=== PATIENT | male | born 1970 | race Asian ===

== ENCOUNTER 2019-07-25 15:49 | Inpatient (IN) | payer OTHER ==
[2019-07-25] VITALS (11 sets, daily range): BP systolic 80–118; BP diastolic 40–92
[~2019-07-25] VITALS: Ht 152.4 cm; Wt 86.2 kg
--- NOTE | 2019-07-25 18:45 | NUR ---
patient admitted from [facility]- [place] [id number]- EMS at 1240- [facility] at 1246- started cooling at 1400. cooling reached at 1845. Family here unable to answer any of patient admission questions. they have no knowledge of pt health backround
[2019-07-25] MEDS ORDERED: POLYVINYL ALCOHOL 1.4% OPHTH SOLUTION 15ML BOTTLE. OU PRN (19:00)
[2019-07-25] MEDS ORDERED: AMIODARONE 900 MG in IV DEXTROSE 5% 500 ML IV PRN (19:00)
[2019-07-25] MEDS ORDERED: VECURONIUM BOLUS 10 MG VIAL. IV PRN (19:00)
[2019-07-25] MEDS ORDERED: MIDAZOLAM HCL/PF 2 MG/2 ML VIAL. IV ONE (19:30)
[2019-07-25] MEDS ORDERED: fentaNYL PF VIAL 100 MCG/2 ML VIAL IV ONE (19:30)
[2019-07-25] MEDS ORDERED: MAGNESIUM SULFATE 1GM 100 ML IV ONE (19:30)
[2019-07-25 19:41] LABS: BASO # 0.1 x10^3/uL (0.0-0.2); BASO % 0 % (0-3); EOS # 0.1 x10^3/uL (0.0-0.7); EOS % 0 % (0-3); HEMATOCRIT 47.7 % (39.0-53.0); HEMOGLOBIN 15.2 g/dL (13.0-17.5); LYMPH # 2.1 x10^3/uL (1.0-4.8); LYMPH % 10 % (24-48); MEAN CORPUSCULAR HEMOGLOBIN 27 pg (25-35); MEAN CORPUSCULAR HGB CONC 32 g/dL (31-37); MEAN CORPUSCULAR VOLUME 86 fL (79-100); MONO # 1.9 x10^3/uL (0.0-1.1); MONO % 9 % (0-9); NEUT # 17.7 x10^3/uL (1.8-7.7); NEUT % 81 % (31-73); PLATELET COUNT 193 x10^3/uL (140-400); RED BLOOD COUNT 5.56 x10^6/uL (4.30-5.70); RED CELL DISTRIBUTION WIDTH 14.5 % (11.5-14.5); WHITE BLOOD COUNT 21.8 x10^3/uL (4.0-11.0)
[2019-07-25 19:44] LABS: CALCIUM 7.1 mg/dL (8.5-10.1); CREATININE 2.3 mg/dL (0.7-1.3); GFR 30.6
[2019-07-25 19:47] LABS: MAGNESIUM 1.8 mg/dL (1.8-2.4); PHOSPHORUS 5.7 mg/dL (2.6-4.7)
[2019-07-25 19:49] LABS: PROTHROMBIN TIME PATIENT 16.1 SEC (11.7-14.0)
[2019-07-25] MEDS ORDERED: PROPOFOL 100 ML IV PRN (20:00)
[2019-07-25 20:03] LABS: BASE EXCESS ABG -11 mmol/L (-3-3); CORRECTED PCO2 ABG 38 mmHg; CORRECTED PH ABG 7.24; CORRECTED PO2 ABG 434 mmHg; HCO3 ABG 16 mmol/L (21-28); PCO2 ABG 41 mmHg (35-46); PO2 ABG 442 mmHg (75-108); SAT O2 ABG 99 % (92-99)
[2019-07-25 20:09] LABS: % BANDS 22 % (0-9); % EOS 1 % (0-5); % LYMPHS 9 % (24-48); % MONOS 11 % (0-10); % SEGS 57 % (35-66)
[2019-07-25 20:10] LABS: PLT ESTIMATE ADEQUATE (ADEQUATE)
[2019-07-25 20:11] LABS: FIO2 ABG 100
[2019-07-25] MEDS ORDERED: SODIUM BICARB ADULT 8.4% 50 MEQ/50 ML DISP.SYRIN. IV ONE (20:30)
[2019-07-25] MEDS: MIDAZOLAM 100mg/100ml NS BAG 100 ML IV PRN (20:50)
[2019-07-25] MEDS: PANTOPRAZOLE IV PUSH 40 MG VIAL. IVP SCH (21:16)
[2019-07-25] MEDS: ACETAMINOPHEN 650 MG/20.3 ML SOLUTION. NG SCH (21:16)
[2019-07-25] MEDS: busPIRone 10 MG TABLET. NG SCH (21:17)
[2019-07-25] MEDS: HEPARIN for SUB-Q USE 5,000 UNIT/ML VIAL. SQ SCH (21:18)
--- NOTE | 2019-07-25 21:21 | PDOC1 ---
History and Physical Date of Admission Date of Admission DATE: 07/25/19 TIME: 21:14 Source Source: Chart review, Patient History of Present Illness History of Present Illness Transferred her from [facility], Mr. 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 They had a AICD def device at the plant, and no shockable rhythm was determined by the device. EMS found him in PEA arrest, Non-con head CT was negative acute. EKG was OK, no trop elevation, pt seen by Dr. King in CV consult there is a note from [facility]. CT scan was negative for PE The ER doctor talked to the neurologist at Dr. Juárez, CT angiogram of the lung is ruled out PE blood gas was a respiratory acidosis, bicarb has been given arruved here intubated Past Medical History Cardiovascular: No pertinent hx Pulmonary: No pertinent hx GI: No pertinent hx Heme/Onc: No pertinent hx Social History ALCOHOL: rare Drugs: None Current Medications Current Medications Current Medications Norepinephrine Bitartrate 250 ml @ 15 mls/hr CONT PRN IV SEE I/O RECORD; Start 07/25/19 at 19:00 Amiodarone HCl 900 mg/Dextrose 518 ml @ 33 mls/hr CONT PRN IV SEE I/O RECORD; Start 07/25/19 at 19:00 Fentanyl Citrate (Fentanyl 2ml Vial) 100 mcg 1X ONCE IV Last administered on 07/25/19at 19:44; Start 07/25/19 at 19:30; Stop 07/25/19 at 19:31; Status DC Midazolam HCl (Versed) 2 mg 1X ONCE IV Last administered on 07/25/19at 19:43; Start 07/25/19 at 19:30; Stop 07/25/19 at 19:31; Status DC Magnesium Sulfate/ Dextrose 100 ml @ 100 mls/hr 1X ONCE IV Last administered on 07/25/19at 19:44; Start 07/25/19 at 19:30; Stop 07/25/19 at 20:29; Status DC Buspirone HCl (Buspar) 30 mg Q8H NG ; Start 07/25/19 at 20:00; Stop 07/27/19 at 12:01 Acetaminophen (Tylenol) 650 mg Q4H NG ; Start 07/25/19 at 20:00 Artificial Tears (Artificial Tears) 1 drop Q6HRS OU ; Start 07/26/19 at 00:00 Artificial Tears (Artificial Tears) 1 drop PRN Q15MIN PRN OU DRY EYE; Start 07/25/19 at 19:00 Heparin Sodium (Porcine) (Heparin Sodium) 5,000 unit BID SQ ; Start 07/25/19 at 21:00 Pantoprazole Sodium (PROTONIX VIAL for IV PUSH) 40 mg DAILY IVP ; Start 07/25/19 at 20:00 Fentanyl Citrate 30 ml @ 0 mls/hr CONT PRN IV PER PROTOCOL. Last administered on 07/25/19at 20:28; Start 07/25/19 at 19:00 Propofol 100 ml @ 0 mls/hr CONT PRN IV PER PROTOCOL.; Start 07/25/19 at 20:00 Midazolam HCl 100 ml @ 0 mls/hr CONT PRN IV PER PROTOCOL. Last administered on 07/25/19at 20:50; Start 07/25/19 at 20:00 Vecuronium [place] (Norcuron Bolus) 8 mg PRN Q1HR PRN IV SHIVERING; Start 07/25/19 at 19:00 Sodium Bicarbonate (Sodium Bicarb Adult 8.4% Syr) 50 meq 1X ONCE IV Last administered on 07/25/19at 20:30; Start 07/25/19 at 20:30; Stop 07/25/19 at 20:31; Status DC Allergies Allergies: Coded Allergies: Unable to Assess (Unverified , 07/25/19) ROS Review of System unable, his has been out of town Physical Exam General: mild distress, Other (sedated ) HEENT: Atraumatic, PERRLA, EOMI, Mucous membr. moist/pink Lungs: Clear to auscultation, Normal air movement Heart: S1S2, no murmurs, irregularly irregular Abdomen: Soft Extremities: No clubbing, No cyanosis, No edema, Normal pulses Skin: No rashes, No breakdown Neuro: Other (sedated, but has pupil reflex, withdraws, has gag reflex, ) Vitals Vitals Vital Signs Date Time Temp Pulse Resp B/P (MAP) Pulse Ox O2 Delivery O2 Flow Rate FiO2 07/25/19 20:45 Ventilator 07/25/19 20:28 22 07/25/19 19:44 100 Labs Labs Laboratory Tests Test 07/25/19 18:25 07/25/19 19:55 White Blood Count 21.8 x10^3/uL (4.0-11.0) Red Blood Count 5.56 x10^6/uL (4.30-5.70) Hemoglobin 15.2 g/dL (13.0-17.5) Hematocrit 47.7 % (39.0-53.0) Mean Corpuscular Volume 86 fL (79-100) Mean Corpuscular Hemoglobin 27 pg (25-35) Mean Corpuscular Hemoglobin Concent 32 g/dL (31-37) Red Cell Distribution Width 14.5 % (11.5-14.5) Platelet Count 193 x10^3/uL (140-400) Neutrophils (%) (Auto) 81 % (31-73) Lymphocytes (%) (Auto) 10 % (24-48) Monocytes (%) (Auto) 9 % (0-9) Eosinophils (%) (Auto) 0 % (0-3) Basophils (%) (Auto) 0 % (0-3) Neutrophils # (Auto) 17.7 x10^3/uL (1.8-7.7) Lymphocytes # (Auto) 2.1 x10^3/uL (1.0-4.8) Monocytes # (Auto) 1.9 x10^3/uL (0.0-1.1) Eosinophils # (Auto) 0.1 x10^3/uL (0.0-0.7) Basophils # (Auto) 0.1 x10^3/uL (0.0-0.2) Segmented Neutrophils % 57 % (35-66) Band Neutrophils % 22 % (0-9) Lymphocytes % 9 % (24-48) Monocytes % 11 % (0-10) Eosinophils % 1 % (0-5) Platelet Estimate Adequate (ADEQUATE) Prothrombin Time 16.1 SEC (11.7-14.0) Prothromb Time International Ratio 1.3 (0.8-1.1) Sodium Level 148 mmol/L (136-145) Potassium Level 4.0 mmol/L (3.5-5.1) Chloride Level 110 mmol/L (98-107) Carbon Dioxide Level 24 mmol/L (21-32) Anion Gap 14 (6-14) Blood Urea Nitrogen 28 mg/dL (8-26) Creatinine 2.3 mg/dL (0.7-1.3) Estimated GFR (Cockcroft-Gault) 30.6 Glucose Level 157 mg/dL (70-99) Calcium Level 7.1 mg/dL (8.5-10.1) Ionized Calcium 0.92 mmol/L (1.13-1.32) Phosphorus Level 5.7 mg/dL (2.6-4.7) Magnesium Level 1.8 mg/dL (1.8-2.4) O2 Saturation 99 % (92-99) Arterial Blood pH 7.22 (7.35-7.45) Arterial Blood pH (Temp corrected) 7.24 Arterial Blood pCO2 at Patient Temp 41 mmHg (35-46) Arterial Blood pCO2 (Temp correct) 38 mmHg Arterial Blood pO2 at Patient Temp 442 mmHg (75-108) Arterial Blood pO2 (Temp corrected) 434 mmHg Arterial Blood HCO3 16 mmol/L (21-28) Arterial Blood Base Excess -11 mmol/L (-3-3) FiO2 100 Laboratory Tests Test 07/25/19 18:25 07/25/19 19:55 White Blood Count 21.8 x10^3/uL (4.0-11.0) Red Blood Count 5.56 x10^6/uL (4.30-5.70) Hemoglobin 15.2 g/dL (13.0-17.5) Hematocrit 47.7 % (39.0-53.0) Mean Corpuscular Volume 86 fL (79-100) Mean Corpuscular Hemoglobin 27 pg (25-35) Mean Corpuscular Hemoglobin Concent 32 g/dL (31-37) Red Cell Distribution Width 14.5 % (11.5-14.5) Platelet Count 193 x10^3/uL (140-400) Neutrophils (%) (Auto) 81 % (31-73) Lymphocytes (%) (Auto) 10 % (24-48) Monocytes (%) (Auto) 9 % (0-9) Eosinophils (%) (Auto) 0 % (0-3) Basophils (%) (Auto) 0 % (0-3) Neutrophils # (Auto) 17.7 x10^3/uL (1.8-7.7) Lymphocytes # (Auto) 2.1 x10^3/uL (1.0-4.8) Monocytes # (Auto) 1.9 x10^3/uL (0.0-1.1) Eosinophils # (Auto) 0.1 x10^3/uL (0.0-0.7) Basophils # (Auto) 0.1 x10^3/uL (0.0-0.2) Segmented Neutrophils % 57 % (35-66) Band Neutrophils % 22 % (0-9) Lymphocytes % 9 % (24-48) Monocytes % 11 % (0-10) Eosinophils % 1 % (0-5) Platelet Estimate Adequate (ADEQUATE) Prothrombin Time 16.1 SEC (11.7-14.0) Prothromb Time International Ratio 1.3 (0.8-1.1) Sodium Level 148 mmol/L (136-145) Potassium Level 4.0 mmol/L (3.5-5.1) Chloride Level 110 mmol/L (98-107) Carbon Dioxide Level 24 mmol/L (21-32) Anion Gap 14 (6-14) Blood Urea Nitrogen 28 mg/dL (8-26) Creatinine 2.3 mg/dL (0.7-1.3) Estimated GFR (Cockcroft-Gault) 30.6 Glucose Level 157 mg/dL (70-99) Calcium Level 7.1 mg/dL (8.5-10.1) Ionized Calcium 0.92 mmol/L (1.13-1.32) Phosphorus Level 5.7 mg/dL (2.6-4.7) Magnesium Level 1.8 mg/dL (1.8-2.4) O2 Saturation 99 % (92-99) Arterial Blood pH 7.22 (7.35-7.45) Arterial Blood pH (Temp corrected) 7.24 Arterial Blood pCO2 at Patient Temp 41 mmHg (35-46) Arterial Blood pCO2 (Temp correct) 38 mmHg Arterial Blood pO2 at Patient Temp 442 mmHg (75-108) Arterial Blood pO2 (Temp corrected) 434 mmHg Arterial Blood HCO3 16 mmol/L (21-28) Arterial Blood Base Excess -11 mmol/L (-3-3) FiO2 100 VTE Prophylaxis Ordered VTE Prophylaxis Devices: Yes VTE Pharmacological Prophylaxi: No Assessment/Plan Assessment/Plan cardiac arrest in field PEA arrest cardiac arrhythmia s/p CPR and shocks on amio, is getting cooling protocol CT head OK, s/p code neuro deficit, poor reflexes in ER, seem improved admit to ICU, discussed with 9 family members, [place], only one spoke fluent romanian time > 40 min MARYA MATTHEWS MD Jul 25, 2019 21:21
[2019-07-26] VITALS (29 sets, daily range): BP systolic 80–138; BP diastolic 50–85
[2019-07-26] MEDS: POLYVINYL ALCOHOL 1.4% OPHTH SOLUTION 15ML BOTTLE. OU SCH ×5 (00:23→23:04)
[2019-07-26] MEDS: ACETAMINOPHEN 650 MG/20.3 ML SOLUTION. NG SCH ×5 (00:23→17:54)
[2019-07-26] MEDS ORDERED: IV NORMAL SALINE 1000ML BAG 1,000 ML IV ONE ×2 (01:30)
[2019-07-26] MEDS: NOREPINEPHRIN 8MG/250ML PREMIX 250 ML IV PRN ×3 (01:42→10:22)
[2019-07-26] MEDS ORDERED: HYDROCORTISONE SOD SUCC/PF 100 MG/2 ML VIAL. IV ONE (01:45)
[2019-07-26 03:05] LABS: CALCIUM 6.7 mg/dL (8.5-10.1)
[2019-07-26 04:04] LABS: BASO % 0 % (0-3); EOS % 0 % (0-3); HEMATOCRIT 51.2 % (39.0-53.0); HEMOGLOBIN 16.4 g/dL (13.0-17.5); LYMPH # 2.1 x10^3/uL (1.0-4.8); LYMPH % 9 % (24-48); MEAN CORPUSCULAR HEMOGLOBIN 27 pg (25-35); MEAN CORPUSCULAR HGB CONC 32 g/dL (31-37); MEAN CORPUSCULAR VOLUME 86 fL (79-100); MONO # 1.9 x10^3/uL (0.0-1.1); MONO % 8 % (0-9); NEUT # 19.3 x10^3/uL (1.8-7.7); NEUT % 82 % (31-73); PLATELET COUNT 197 x10^3/uL (140-400); RED BLOOD COUNT 5.97 x10^6/uL (4.30-5.70); RED CELL DISTRIBUTION WIDTH 14.4 % (11.5-14.5); WHITE BLOOD COUNT 23.5 x10^3/uL (4.0-11.0)
[2019-07-26 04:09] LABS: CALCIUM 6.5 mg/dL (8.5-10.1); CREATININE 2.5 mg/dL (0.7-1.3); GFR 27.8
[2019-07-26 04:10] LABS: MAGNESIUM 2.2 mg/dL (1.8-2.4); POTASSIUM 3.9 mmol/L (3.5-5.1)
[2019-07-26] MEDS: busPIRone 10 MG TABLET. NG SCH ×2 (04:43→12:27)
[2019-07-26] MEDS: cefTRIAXone IV Push 1 GM VIAL. IVP SCH (06:12)
--- NOTE | 2019-07-26 06:22 | NUR ---
noted bp 80/60. Dr Lopez called orders recieved and entered.
--- NOTE | 2019-07-26 07:25 | PDOC ---
Provider Note Provider Note [id number] acute resp fail s/p cp arrest danyelle shock see orders MICK VELÁZQUEZ MD Jul 26, 2019 07:25
[2019-07-26] MEDS ORDERED: AMIODARONE 900 MG in IV DEXTROSE 5% 500 ML IV PRN (08:00)
[2019-07-26 08:05] LABS: BASO # 0.1 x10^3/uL (0.0-0.2); BASO % 0 % (0-3); EOS % 0 % (0-3); HEMATOCRIT 51.1 % (39.0-53.0); HEMOGLOBIN 16.1 g/dL (13.0-17.5); LYMPH # 1.4 x10^3/uL (1.0-4.8); LYMPH % 6 % (24-48); MEAN CORPUSCULAR HEMOGLOBIN 27 pg (25-35); MEAN CORPUSCULAR HGB CONC 31 g/dL (31-37); MEAN CORPUSCULAR VOLUME 87 fL (79-100); MONO # 1.6 x10^3/uL (0.0-1.1); MONO % 6 % (0-9); NEUT # 22.4 x10^3/uL (1.8-7.7); NEUT % 88 % (31-73); PLATELET COUNT 208 x10^3/uL (140-400); RED BLOOD COUNT 5.87 x10^6/uL (4.30-5.70); RED CELL DISTRIBUTION WIDTH 14.7 % (11.5-14.5); WHITE BLOOD COUNT 25.5 x10^3/uL (4.0-11.0)
[2019-07-26 08:08] LABS: PROTHROMBIN TIME PATIENT 17.1 SEC (11.7-14.0)
[2019-07-26 08:22] LABS: BILIRUBIN,URINE SMALL (NEG); CLARITY,URINE CLOUDY; COLOR,URINE YELLOW; NITRITE,URINE NEGATIVE (NEG); PROTEIN,URINE 100 mg/dL (NEG-TRACE)
--- NOTE | 2019-07-26 08:22 | CONS ---
DATE OF CONSULTATION: 07/26/2019 HISTORY OF PRESENT ILLNESS: I was asked to see this 48-year-old gentleman for acute respiratory failure, status post cardiopulmonary arrest. The patient is currently on the ventilator. He is on hypothermia protocol. He is not responsive. He is not able to give any information. All of the information was obtained from chart and nursing staff. 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 After 33 minutes, he gained circulation. He was in PEA rhythm. Cardiology has seen the patient and started the patient on amiodarone. He is currently on amiodarone. He is on the ventilator. His temperature is 33. He has small amount of ET tube secretion. He is on dobutamine and Levophed, Versed and fentanyl. PAST MEDICAL HISTORY: None per chart. SOCIAL HISTORY: Rare alcohol. MEDICATIONS: Currently, he is on amiodarone, dobutamine, Levophed, doxycycline, Rocephin, heparin subcutaneously, Versed, fentanyl. FAMILY HISTORY: Unable to obtain. The patient is on the ventilator and is not able to give any information. REVIEW OF SYSTEMS: As mentioned as above. I have discussed the patient with RN. Other systems are otherwise negative. PHYSICAL EXAMINATION: GENERAL: This is a well-developed gentleman. VITAL SIGNS: His O2 saturation is 100%, respiratory rate 14, heart rate 59, blood pressure 93/67, temperature 33. HEENT: Pupils are 1-2 mm, sluggish to light. He is orally intubated. Nose is clear. NECK: There is no lymphadenopathy or thyromegaly. CARDIOVASCULAR: Regular rate and rhythm. PMI is nondisplaced. CHEST: Inspection is normal. LUNGS: There are bibasilar crackles, dullness at the bases. ABDOMEN: Soft. Bowel sounds are good. There is no mass. EXTREMITIES: There is no edema. LYMPHATICS: There is no lymphadenopathy. SKIN: No rash. NEUROLOGIC: He is on the ventilator, sedated. LABORATORY DATA: I reviewed the following lab data. WBC 23.5, hemoglobin 16.4, platelets 197. ABG at 19:55 yesterday, pH 7.22, pCO2 of 41, pO2 of 443 on 100% FiO2. Sodium 144, potassium 3.9, chloride 110, CO2 of 17, glucose 250, BUN 30, creatinine 2.5. INR 1.3. Lactic acid 8.9. His CT angiogram of the chest reportedly showed bibasilar infiltrate, no central pulmonary embolism. CT of the head was negative for bleed. IMPRESSION: 1. Acute respiratory failure secondary to cardiopulmonary arrest, cannot rule out sepsis versus others. 2. Status post cardiopulmonary arrest, questionable etiology. 3. Abnormal CT of the chest. 4. Acute kidney injury. 5. Hypotension, septic shock versus cardiogenic shock versus others. 6. Lactic acidosis. PLAN AND RECOMMENDATIONS: 1. Titrate FiO2 to keep O2 saturation 94%. 2. Continue ventilator support. I will do an ABG. Change vent setting per ABG. 3. Stat portable chest x-ray will be reviewed. 4. Herrera cultures done. We will follow culture results. 5. Continue antibiotic. 6. Heparin for DVT prophylaxis. 7. Continue hypothermia protocol. 8. Protonix for stress ulcer prophylaxis. 9. Follow Cardiology recommendations. He would require an echocardiogram. 10. Nasal swab for influenza A and B. 11. Legionella and Strep pneumoniae antigen. 12. The findings and recommendations were discussed with RN. 13. Monitor kidney function tests. May require Nephrology consultation. Thank you very much for allowing me to participate in the care of this very nice gentleman. The patient is critically ill. Critical care time 32 minutes without overlap. MICK VELÁZQUEZ M.D. : [place] JOB#: [id number] / [id number]
[2019-07-26 08:31] LABS: CALCIUM 6.6 mg/dL (8.5-10.1); CREATININE 2.8 mg/dL (0.7-1.3); GFR 24.4; PHOSPHORUS 7.6 mg/dL (2.6-4.7); POTASSIUM 3.8 mmol/L (3.5-5.1)
[2019-07-26 08:31] LABS: BASE EXCESS ABG -20 mmol/L (-3-3); HCO3 ABG 12 mmol/L (21-28); PCO2 ABG 49 mmHg (35-46); PO2 ABG 102 mmHg (75-108); SAT O2 ABG 96 % (92-99)
[2019-07-26 08:36] LABS: CORRECTED PCO2 ABG 41 mmHg; CORRECTED PH ABG 7.05; CORRECTED PO2 ABG 80 mmHg
--- NOTE | 2019-07-26 08:37 | PDOC2 ---
CARDIOLOGY CONSULT NOTE CHEIF COMPLAINT: Cardiac arrest HPI: 48 y.o male with witnessed out of hospital cardiac arrest when at work. No family at bedside and no next of kin available that can speak Colombian. Patient per chart review and discussion with other providers is a refugee living in [place]. He apparently has no prior cardiac history. He fell down while at work and initial rhythm was PEA. Evaluation at [facility] did not reveal a P.E and no evidence of RODERICK on EKG. He was brought to [facility] ICU and since then has been on hypothermic protocol. PMHX: Unknown SOCHX: Unknown FAMHX: Unknown CURRENT MEDS: Current Medications Medications (Trade) Dose Ordered Sig/Rosi Route PRN Reason Start Time Stop Time Status Last Admin Dose Admin Norepinephrine Bitartrate 250 ml @ 15 mls/hr CONT PRN IV SEE I/O RECORD 07/25/19 19:00 07/26/19 06:01 Amiodarone HCl 900 mg/Dextrose 518 ml @ 33 mls/hr CONT PRN IV SEE I/O RECORD 07/25/19 19:00 07/26/19 00:25 DC 07/26/19 00:21 Fentanyl Citrate (Fentanyl 2ml Vial) 100 mcg 1X ONCE IV 07/25/19 19:30 07/25/19 19:31 DC 07/25/19 19:44 Midazolam HCl (Versed) 2 mg 1X ONCE IV 07/25/19 19:30 07/25/19 19:31 DC 07/25/19 19:43 Magnesium Sulfate/ Dextrose 100 ml @ 100 mls/hr 1X ONCE IV 07/25/19 19:30 07/25/19 20:29 DC 07/25/19 19:44 Buspirone HCl (Buspar) 30 mg Q8H NG 07/25/19 20:00 07/27/19 12:01 07/26/19 04:43 Acetaminophen (Tylenol) 650 mg Q4H NG 07/25/19 20:00 07/26/19 04:43 Artificial Tears (Artificial Tears) 1 drop Q6HRS OU 07/26/19 00:00 07/26/19 06:11 Heparin Sodium (Porcine) (Heparin Sodium) 5,000 unit BID SQ 07/25/19 21:00 07/25/19 21:18 Pantoprazole Sodium (PROTONIX VIAL for IV PUSH) 40 mg DAILY IVP 07/25/19 20:00 07/25/19 21:16 Fentanyl Citrate 30 ml @ 0 mls/hr CONT PRN IV PER PROTOCOL. 07/25/19 19:00 07/26/19 07:34 Midazolam HCl 100 ml @ 0 mls/hr CONT PRN IV PER PROTOCOL. 07/25/19 20:00 07/25/19 20:50 Sodium Bicarbonate (Sodium Bicarb Adult 8.4% Syr) 50 meq 1X ONCE IV 07/25/19 20:30 07/25/19 20:31 DC 07/25/19 20:30 Sodium Chloride 1,000 ml @ 125 mls/hr 1X ONCE IV 07/26/19 01:30 07/26/19 09:29 07/26/19 01:42 Sodium Chloride 1,000 ml @ 1,000 mls/hr 1X ONCE IV 07/26/19 01:30 07/26/19 02:29 DC 07/26/19 01:30 Hydrocortisone Sodium Succinate (Solu-CORTEF) 100 mg 1X ONCE IV 07/26/19 01:45 07/26/19 01:46 DC 07/26/19 01:44 Ceftriaxone Sodium (Rocephin) 1 gm Q24H IVP 07/26/19 06:00 07/26/19 06:12 ALLERGIES: Allergies Coded Allergies Type Severity Reaction Last Updated Verified Unable to Assess 07/25/19 No ROS: Not able to be obtained PHYSICAL EXAM: Vital Signs/I&O: Vital Signs Date Time Temp Pulse Resp B/P (MAP) Pulse Ox O2 Delivery O2 Flow Rate FiO2 07/26/19 08:22 100 Ventilator 07/26/19 07:34 14 07/26/19 06:20 92.5 59 80/56 I & O 07/25/19 07/25/19 07/26/19 15:00 23:00 07:00 Intake Total 0 ml 166 ml Output Total 170 ml 255 ml Balance -170 ml -89 ml Physical Exam: he is sedated and non-responsive Distant heart tones. Regular Soft abdomen Lungs with bilateral rhonchi No edema. Diminished peripheral pulses. DIAGNOSTIC TESTING: WBC > 25K Renal failure noted Lactate elevated CXR consistent with ARDS ASSESSMENT: 1. Cardiac arrest - PEA - etiology unclear 2. FABIAN 3. Probable ARDS/septic shock? PLAN: 1. Continue supportive care with pressors/fluids. 2. Check echo tomorrow after rewarming. 3. Depending on neurologic recovery, could then consider further ischemic evaluation including cath. Poor prognosis. Will follow along. OMAIRA ALFONSO MD Jul 26, 2019 08:37
[2019-07-26 08:42] LABS: INFLUENZA A PATIENT NEGATIVE (NEGATIVE); INFLUENZA B PATIENT NEGATIVE (NEGATIVE)
[2019-07-26 08:45] LABS: SQUAMOUS EPITHELIAL CELL,UR OCC /LPF
[2019-07-26 08:46] LABS: AMORPHOUS SEDIMENT,UR PRESENT /HPF; GRANULAR CASTS,URINE FEW /HPF; WAXY CASTS,URINE OCCASIONAL /HPF
[2019-07-26 08:48] LABS: BACTERIA,URINE FEW /HPF (0-FEW)
[2019-07-26] MEDS: DOXYCYCLINE HYCLATE 100 MG in IV DEXTROSE 5% 100ML 100 ML IV SCH ×2 (08:51→20:52)
[2019-07-26] MEDS: PANTOPRAZOLE IV PUSH 40 MG VIAL. IVP SCH (08:51)
[2019-07-26] MEDS: HEPARIN for SUB-Q USE 5,000 UNIT/ML VIAL. SQ SCH ×2 (08:52→20:52)
[2019-07-26] MEDS: INSULIN REGULAR VIAL 150 UNIT in 0.9 % SODIUM CHLORIDE 150ML 150 ML IV PRN ×2 (09:19→23:03)
--- NOTE | 2019-07-26 09:31 | RAD ---
Exam performed: One view chest HISTORY: Cardiac arrest. DATE OF SERVICE: 2018. COMPARISON: Single view chest from 07/25/2019. Single AP upright portable view chest findings: Study somewhat limited due to positioning. Cardiomegaly with mild Central vascular congestion perhaps related to semiupright position. Endotracheal tube and feeding tube are stable. There is opacification of the left lung base with elevation of the left costophrenic angle. No pneumothorax. IMPRESSION: Cardiomegaly with mild Central vascular congestion perhaps related to semiupright position. Stable support lines and tubes. Electronically signed by: Jessi Watkins MD (07/26/2019 9:29 AM) [facility]
[2019-07-26] MEDS ORDERED: MAGNESIUM SULFATE 2GM 50 ML IV ONE (09:45)
--- NOTE | 2019-07-26 12:17 | PDOC ---
PROGRESS NOTES Chief Complaint Chief Complaint cardiac arrest in field PEA arrest cardiac arrhythmia HX Of htn and unknown cardiac condition per family tobacco use disorder, obese, BMI 37 leukocytosis, lactic acidosis, abx given, cx pending, unknown source, s/p CPR and shocks on amio, is getting cooling protocol History of Present Illness History of Present Illness discussed with family last ight and today brain reflexes are not working , pupils are very small, dolls eye pathology, neuro following Vitals Vitals Vital Signs Date Time Temp Pulse Resp B/P (MAP) Pulse Ox O2 Delivery O2 Flow Rate FiO2 07/26/19 11:00 91.9 59 19 115/69 100 Ventilator Physical Exam Physical Exam on vent, not responsive to painful General: mild distress, Other (sedated ) Abdomen: Soft Extremities: No clubbing, No cyanosis, No edema, Normal pulses Skin: No rashes, No breakdown Labs LABS Laboratory Tests Test 07/25/19 18:25 07/25/19 19:55 07/25/19 20:01 07/26/19 02:05 White Blood Count 21.8 x10^3/uL (4.0-11.0) Red Blood Count 5.56 x10^6/uL (4.30-5.70) Hemoglobin 15.2 g/dL (13.0-17.5) Hematocrit 47.7 % (39.0-53.0) Mean Corpuscular Volume 86 fL (79-100) Mean Corpuscular Hemoglobin 27 pg (25-35) Mean Corpuscular Hemoglobin Concent 32 g/dL (31-37) Red Cell Distribution Width 14.5 % (11.5-14.5) Platelet Count 193 x10^3/uL (140-400) Neutrophils (%) (Auto) 81 % (31-73) Lymphocytes (%) (Auto) 10 % (24-48) Monocytes (%) (Auto) 9 % (0-9) Eosinophils (%) (Auto) 0 % (0-3) Basophils (%) (Auto) 0 % (0-3) Neutrophils # (Auto) 17.7 x10^3/uL (1.8-7.7) Lymphocytes # (Auto) 2.1 x10^3/uL (1.0-4.8) Monocytes # (Auto) 1.9 x10^3/uL (0.0-1.1) Eosinophils # (Auto) 0.1 x10^3/uL (0.0-0.7) Basophils # (Auto) 0.1 x10^3/uL (0.0-0.2) Segmented Neutrophils % 57 % (35-66) Band Neutrophils % 22 % (0-9) Lymphocytes % 9 % (24-48) Monocytes % 11 % (0-10) Eosinophils % 1 % (0-5) Platelet Estimate Adequate (ADEQUATE) Prothrombin Time 16.1 SEC (11.7-14.0) Prothromb Time International Ratio 1.3 (0.8-1.1) Sodium Level 148 mmol/L (136-145) Potassium Level 4.0 mmol/L (3.5-5.1) Chloride Level 110 mmol/L (98-107) Carbon Dioxide Level 24 mmol/L (21-32) Anion Gap 14 (6-14) Blood Urea Nitrogen 28 mg/dL (8-26) Creatinine 2.3 mg/dL (0.7-1.3) Estimated GFR (Cockcroft-Gault) 30.6 Glucose Level 157 mg/dL (70-99) Calcium Level 7.1 mg/dL (8.5-10.1) Ionized Calcium 0.92 mmol/L (1.13-1.32) Phosphorus Level 5.7 mg/dL (2.6-4.7) Magnesium Level 1.8 mg/dL (1.8-2.4) O2 Saturation 99 % (92-99) Arterial Blood pH 7.22 (7.35-7.45) Arterial Blood pH (Temp corrected) 7.24 Arterial Blood pCO2 at Patient Temp 41 mmHg (35-46) Arterial Blood pCO2 (Temp correct) 38 mmHg Arterial Blood pO2 at Patient Temp 442 mmHg (75-108) Arterial Blood pO2 (Temp corrected) 434 mmHg Arterial Blood HCO3 16 mmol/L (21-28) Arterial Blood Base Excess -11 mmol/L (-3-3) FiO2 100 Glucose (Fingerstick) 144 mg/dL (70-99) 185 mg/dL (70-99) Test 07/26/19 02:15 07/26/19 06:00 07/26/19 07:50 07/26/19 08:00 White Blood Count 23.5 x10^3/uL (4.0-11.0) 25.5 x10^3/uL (4.0-11.0) Red Blood Count 5.97 x10^6/uL (4.30-5.70) 5.87 x10^6/uL (4.30-5.70) Hemoglobin 16.4 g/dL (13.0-17.5) 16.1 g/dL (13.0-17.5) Hematocrit 51.2 % (39.0-53.0) 51.1 % (39.0-53.0) Mean Corpuscular Volume 86 fL (79-100) 87 fL (79-100) Mean Corpuscular Hemoglobin 27 pg (25-35) 27 pg (25-35) Mean Corpuscular Hemoglobin Concent 32 g/dL (31-37) 31 g/dL (31-37) Red Cell Distribution Width 14.4 % (11.5-14.5) 14.7 % (11.5-14.5) Platelet Count 197 x10^3/uL (140-400) 208 x10^3/uL (140-400) Neutrophils (%) (Auto) 82 % (31-73) 88 % (31-73) Lymphocytes (%) (Auto) 9 % (24-48) 6 % (24-48) Monocytes (%) (Auto) 8 % (0-9) 6 % (0-9) Eosinophils (%) (Auto) 0 % (0-3) 0 % (0-3) Basophils (%) (Auto) 0 % (0-3) 0 % (0-3) Neutrophils # (Auto) 19.3 x10^3/uL (1.8-7.7) 22.4 x10^3/uL (1.8-7.7) Lymphocytes # (Auto) 2.1 x10^3/uL (1.0-4.8) 1.4 x10^3/uL (1.0-4.8) Monocytes # (Auto) 1.9 x10^3/uL (0.0-1.1) 1.6 x10^3/uL (0.0-1.1) Eosinophils # (Auto) 0.0 x10^3/uL (0.0-0.7) 0.0 x10^3/uL (0.0-0.7) Basophils # (Auto) 0.0 x10^3/uL (0.0-0.2) 0.1 x10^3/uL (0.0-0.2) Prothrombin Time 17.1 SEC (11.7-14.0) Prothromb Time International Ratio 1.4 (0.8-1.1) Sodium Level 144 mmol/L (136-145) 147 mmol/L (136-145) Potassium Level 3.9 mmol/L (3.5-5.1) 3.8 mmol/L (3.5-5.1) Chloride Level 110 mmol/L (98-107) 111 mmol/L (98-107) Carbon Dioxide Level 17 mmol/L (21-32) 14 mmol/L (21-32) Anion Gap 17 (6-14) 22 (6-14) Blood Urea Nitrogen 30 mg/dL (8-26) 31 mg/dL (8-26) Creatinine 2.5 mg/dL (0.7-1.3) 2.8 mg/dL (0.7-1.3) Estimated GFR (Cockcroft-Gault) 27.8 24.4 Glucose Level 250 mg/dL (70-99) 265 mg/dL (70-99) Calcium Level 6.5 mg/dL (8.5-10.1) 6.6 mg/dL (8.5-10.1) Magnesium Level 2.2 mg/dL (1.8-2.4) 2.0 mg/dL (1.8-2.4) Alkaline Phosphatase 87 U/L (46-116) Lactic Acid Level 8.9 mmol/L (0.4-2.0) Phosphorus Level 7.6 mg/dL (2.6-4.7) Urine Collection Type Unknown Urine Color Yellow Urine Clarity Cloudy Urine pH 5.0 Urine Specific [place] >=1.030 Urine Protein 100 mg/dL (NEG-TRACE) Urine Glucose (UA) Negative mg/dL (NEG) Urine Ketones (Stick) Negative mg/dL (NEG) Urine Blood Large (NEG) Urine Nitrite Negative (NEG) Urine Bilirubin Small (NEG) Urine Urobilinogen Dipstick 1.0 mg/dL (0.2 mg/dL) Urine Leukocyte Esterase Negative (NEG) Urine RBC 3-5 /HPF (0-2) Urine WBC 5-10 /HPF (0-4) Urine Squamous Epithelial Cells Occ /LPF Urine Renal Epithelial Cells Few /LPF Urine Amorphous Sediment Present /HPF Urine Bacteria Few /HPF (0-FEW) Urine Granular Casts Few /HPF Urine Waxy Casts Occasional /HPF Urine Mucus Slight /LPF Influenza Type A Antigen Negative (NEGATIVE) Influenza Type B Antigen Negative (NEGATIVE) Test 07/26/19 08:30 07/26/19 10:00 07/26/19 10:05 07/26/19 11:12 O2 Saturation 96 % (92-99) Arterial Blood pH 7.00 (7.35-7.45) Arterial Blood pH (Temp corrected) 7.05 Arterial Blood pCO2 at Patient Temp 49 mmHg (35-46) Arterial Blood pCO2 (Temp correct) 41 mmHg Arterial Blood pO2 at Patient Temp 102 mmHg (75-108) Arterial Blood pO2 (Temp corrected) 80 mmHg Arterial Blood HCO3 12 mmol/L (21-28) Arterial Blood Base Excess -20 mmol/L (-3-3) Lactic Acid Level 9.9 mmol/L (0.4-2.0) Glucose (Fingerstick) 249 mg/dL (70-99) 266 mg/dL (70-99) Comment Review of Relevant I have reviewed the following items talha (where applicable) has been applied. Labs Laboratory Tests Test 07/25/19 18:25 07/25/19 19:55 07/25/19 20:01 07/26/19 02:05 White Blood Count 21.8 x10^3/uL (4.0-11.0) Red Blood Count 5.56 x10^6/uL (4.30-5.70) Hemoglobin 15.2 g/dL (13.0-17.5) Hematocrit 47.7 % (39.0-53.0) Mean Corpuscular Volume 86 fL (79-100) Mean Corpuscular Hemoglobin 27 pg (25-35) Mean Corpuscular Hemoglobin Concent 32 g/dL (31-37) Red Cell Distribution Width 14.5 % (11.5-14.5) Platelet Count 193 x10^3/uL (140-400) Neutrophils (%) (Auto) 81 % (31-73) Lymphocytes (%) (Auto) 10 % (24-48) Monocytes (%) (Auto) 9 % (0-9) Eosinophils (%) (Auto) 0 % (0-3) Basophils (%) (Auto) 0 % (0-3) Neutrophils # (Auto) 17.7 x10^3/uL (1.8-7.7) Lymphocytes # (Auto) 2.1 x10^3/uL (1.0-4.8) Monocytes # (Auto) 1.9 x10^3/uL (0.0-1.1) Eosinophils # (Auto) 0.1 x10^3/uL (0.0-0.7) Basophils # (Auto) 0.1 x10^3/uL (0.0-0.2) Segmented Neutrophils % 57 % (35-66) Band Neutrophils % 22 % (0-9) Lymphocytes % 9 % (24-48) Monocytes % 11 % (0-10) Eosinophils % 1 % (0-5) Platelet Estimate Adequate (ADEQUATE) Prothrombin Time 16.1 SEC (11.7-14.0) Prothromb Time International Ratio 1.3 (0.8-1.1) Sodium Level 148 mmol/L (136-145) Potassium Level 4.0 mmol/L (3.5-5.1) Chloride Level 110 mmol/L (98-107) Carbon Dioxide Level 24 mmol/L (21-32) Anion Gap 14 (6-14) Blood Urea Nitrogen 28 mg/dL (8-26) Creatinine 2.3 mg/dL (0.7-1.3) Estimated GFR (Cockcroft-Gault) 30.6 Glucose Level 157 mg/dL (70-99) Calcium Level 7.1 mg/dL (8.5-10.1) Ionized Calcium 0.92 mmol/L (1.13-1.32) Phosphorus Level 5.7 mg/dL (2.6-4.7) Magnesium Level 1.8 mg/dL (1.8-2.4) O2 Saturation 99 % (92-99) Arterial Blood pH 7.22 (7.35-7.45) Arterial Blood pH (Temp corrected) 7.24 Arterial Blood pCO2 at Patient Temp 41 mmHg (35-46) Arterial Blood pCO2 (Temp correct) 38 mmHg Arterial Blood pO2 at Patient Temp 442 mmHg (75-108) Arterial Blood pO2 (Temp corrected) 434 mmHg Arterial Blood HCO3 16 mmol/L (21-28) Arterial Blood Base Excess -11 mmol/L (-3-3) FiO2 100 Glucose (Fingerstick) 144 mg/dL (70-99) 185 mg/dL (70-99) Test 07/26/19 02:15 07/26/19 06:00 07/26/19 07:50 07/26/19 08:00 White Blood Count 23.5 x10^3/uL (4.0-11.0) 25.5 x10^3/uL (4.0-11.0) Red Blood Count 5.97 x10^6/uL (4.30-5.70) 5.87 x10^6/uL (4.30-5.70) Hemoglobin 16.4 g/dL (13.0-17.5) 16.1 g/dL (13.0-17.5) Hematocrit 51.2 % (39.0-53.0) 51.1 % (39.0-53.0) Mean Corpuscular Volume 86 fL (79-100) 87 fL (79-100) Mean Corpuscular Hemoglobin 27 pg (25-35) 27 pg (25-35) Mean Corpuscular Hemoglobin Concent 32 g/dL (31-37) 31 g/dL (31-37) Red Cell Distribution Width 14.4 % (11.5-14.5) 14.7 % (11.5-14.5) Platelet Count 197 x10^3/uL (140-400) 208 x10^3/uL (140-400) Neutrophils (%) (Auto) 82 % (31-73) 88 % (31-73) Lymphocytes (%) (Auto) 9 % (24-48) 6 % (24-48) Monocytes (%) (Auto) 8 % (0-9) 6 % (0-9) Eosinophils (%) (Auto) 0 % (0-3) 0 % (0-3) Basophils (%) (Auto) 0 % (0-3) 0 % (0-3) Neutrophils # (Auto) 19.3 x10^3/uL (1.8-7.7) 22.4 x10^3/uL (1.8-7.7) Lymphocytes # (Auto) 2.1 x10^3/uL (1.0-4.8) 1.4 x10^3/uL (1.0-4.8) Monocytes # (Auto) 1.9 x10^3/uL (0.0-1.1) 1.6 x10^3/uL (0.0-1.1) Eosinophils # (Auto) 0.0 x10^3/uL (0.0-0.7) 0.0 x10^3/uL (0.0-0.7) Basophils # (Auto) 0.0 x10^3/uL (0.0-0.2) 0.1 x10^3/uL (0.0-0.2) Prothrombin Time 17.1 SEC (11.7-14.0) Prothromb Time International Ratio 1.4 (0.8-1.1) Sodium Level 144 mmol/L (136-145) 147 mmol/L (136-145) Potassium Level 3.9 mmol/L (3.5-5.1) 3.8 mmol/L (3.5-5.1) Chloride Level 110 mmol/L (98-107) 111 mmol/L (98-107) Carbon Dioxide Level 17 mmol/L (21-32) 14 mmol/L (21-32) Anion Gap 17 (6-14) 22 (6-14) Blood Urea Nitrogen 30 mg/dL (8-26) 31 mg/dL (8-26) Creatinine 2.5 mg/dL (0.7-1.3) 2.8 mg/dL (0.7-1.3) Estimated GFR (Cockcroft-Gault) 27.8 24.4 Glucose Level 250 mg/dL (70-99) 265 mg/dL (70-99) Calcium Level 6.5 mg/dL (8.5-10.1) 6.6 mg/dL (8.5-10.1) Magnesium Level 2.2 mg/dL (1.8-2.4) 2.0 mg/dL (1.8-2.4) Alkaline Phosphatase 87 U/L (46-116) Lactic Acid Level 8.9 mmol/L (0.4-2.0) Phosphorus Level 7.6 mg/dL (2.6-4.7) Urine Collection Type Unknown Urine Color Yellow Urine Clarity Cloudy Urine pH 5.0 Urine Specific [place] >=1.030 Urine Protein 100 mg/dL (NEG-TRACE) Urine Glucose (UA) Negative mg/dL (NEG) Urine Ketones (Stick) Negative mg/dL (NEG) Urine Blood Large (NEG) Urine Nitrite Negative (NEG) Urine Bilirubin Small (NEG) Urine Urobilinogen Dipstick 1.0 mg/dL (0.2 mg/dL) Urine Leukocyte Esterase Negative (NEG) Urine RBC 3-5 /HPF (0-2) Urine WBC 5-10 /HPF (0-4) Urine Squamous Epithelial Cells Occ /LPF Urine Renal Epithelial Cells Few /LPF Urine Amorphous Sediment Present /HPF Urine Bacteria Few /HPF (0-FEW) Urine Granular Casts Few /HPF Urine Waxy Casts Occasional /HPF Urine Mucus Slight /LPF Influenza Type A Antigen Negative (NEGATIVE) Influenza Type B Antigen Negative (NEGATIVE) Test 07/26/19 08:30 07/26/19 10:00 07/26/19 10:05 07/26/19 11:12 O2 Saturation 96 % (92-99) Arterial Blood pH 7.00 (7.35-7.45) Arterial Blood pH (Temp corrected) 7.05 Arterial Blood pCO2 at Patient Temp 49 mmHg (35-46) Arterial Blood pCO2 (Temp correct) 41 mmHg Arterial Blood pO2 at Patient Temp 102 mmHg (75-108) Arterial Blood pO2 (Temp corrected) 80 mmHg Arterial Blood HCO3 12 mmol/L (21-28) Arterial Blood Base Excess -20 mmol/L (-3-3) Lactic Acid Level 9.9 mmol/L (0.4-2.0) Glucose (Fingerstick) 249 mg/dL (70-99) 266 mg/dL (70-99) Laboratory Tests Test 07/25/19 18:25 07/25/19 19:55 07/25/19 20:01 07/26/19 02:05 White Blood Count 21.8 x10^3/uL (4.0-11.0) Red Blood Count 5.56 x10^6/uL (4.30-5.70) Hemoglobin 15.2 g/dL (13.0-17.5) Hematocrit 47.7 % (39.0-53.0) Mean Corpuscular Volume 86 fL (79-100) Mean Corpuscular Hemoglobin 27 pg (25-35) Mean Corpuscular Hemoglobin Concent 32 g/dL (31-37) Red Cell Distribution Width 14.5 % (11.5-14.5) Platelet Count 193 x10^3/uL (140-400) Neutrophils (%) (Auto) 81 % (31-73) Lymphocytes (%) (Auto) 10 % (24-48) Monocytes (%) (Auto) 9 % (0-9) Eosinophils (%) (Auto) 0 % (0-3) Basophils (%) (Auto) 0 % (0-3) Neutrophils # (Auto) 17.7 x10^3/uL (1.8-7.7) Lymphocytes # (Auto) 2.1 x10^3/uL (1.0-4.8) Monocytes # (Auto) 1.9 x10^3/uL (0.0-1.1) Eosinophils # (Auto) 0.1 x10^3/uL (0.0-0.7) Basophils # (Auto) 0.1 x10^3/uL (0.0-0.2) Segmented Neutrophils % 57 % (35-66) Band Neutrophils % 22 % (0-9) Lymphocytes % 9 % (24-48) Monocytes % 11 % (0-10) Eosinophils % 1 % (0-5) Platelet Estimate Adequate (ADEQUATE) Prothrombin Time 16.1 SEC (11.7-14.0) Prothromb Time International Ratio 1.3 (0.8-1.1) Sodium Level 148 mmol/L (136-145) Potassium Level 4.0 mmol/L (3.5-5.1) Chloride Level 110 mmol/L (98-107) Carbon Dioxide Level 24 mmol/L (21-32) Anion Gap 14 (6-14) Blood Urea Nitrogen 28 mg/dL (8-26) Creatinine 2.3 mg/dL (0.7-1.3) Estimated GFR (Cockcroft-Gault) 30.6 Glucose Level 157 mg/dL (70-99) Calcium Level 7.1 mg/dL (8.5-10.1) Ionized Calcium 0.92 mmol/L (1.13-1.32) Phosphorus Level 5.7 mg/dL (2.6-4.7) Magnesium Level 1.8 mg/dL (1.8-2.4) O2 Saturation 99 % (92-99) Arterial Blood pH 7.22 (7.35-7.45) Arterial Blood pH (Temp corrected) 7.24 Arterial Blood pCO2 at Patient Temp 41 mmHg (35-46) Arterial Blood pCO2 (Temp correct) 38 mmHg Arterial Blood pO2 at Patient Temp 442 mmHg (75-108) Arterial Blood pO2 (Temp corrected) 434 mmHg Arterial Blood HCO3 16 mmol/L (21-28) Arterial Blood Base Excess -11 mmol/L (-3-3) FiO2 100 Glucose (Fingerstick) 144 mg/dL (70-99) 185 mg/dL (70-99) Test 07/26/19 02:15 07/26/19 06:00 07/26/19 07:50 07/26/19 08:00 White Blood Count 23.5 x10^3/uL (4.0-11.0) 25.5 x10^3/uL (4.0-11.0) Red Blood Count 5.97 x10^6/uL (4.30-5.70) 5.87 x10^6/uL (4.30-5.70) Hemoglobin 16.4 g/dL (13.0-17.5) 16.1 g/dL (13.0-17.5) Hematocrit 51.2 % (39.0-53.0) 51.1 % (39.0-53.0) Mean Corpuscular Volume 86 fL (79-100) 87 fL (79-100) Mean Corpuscular Hemoglobin 27 pg (25-35) 27 pg (25-35) Mean Corpuscular Hemoglobin Concent 32 g/dL (31-37) 31 g/dL (31-37) Red Cell Distribution Width 14.4 % (11.5-14.5) 14.7 % (11.5-14.5) Platelet Count 197 x10^3/uL (140-400) 208 x10^3/uL (140-400) Neutrophils (%) (Auto) 82 % (31-73) 88 % (31-73) Lymphocytes (%) (Auto) 9 % (24-48) 6 % (24-48) Monocytes (%) (Auto) 8 % (0-9) 6 % (0-9) Eosinophils (%) (Auto) 0 % (0-3) 0 % (0-3) Basophils (%) (Auto) 0 % (0-3) 0 % (0-3) Neutrophils # (Auto) 19.3 x10^3/uL (1.8-7.7) 22.4 x10^3/uL (1.8-7.7) Lymphocytes # (Auto) 2.1 x10^3/uL (1.0-4.8) 1.4 x10^3/uL (1.0-4.8) Monocytes # (Auto) 1.9 x10^3/uL (0.0-1.1) 1.6 x10^3/uL (0.0-1.1) Eosinophils # (Auto) 0.0 x10^3/uL (0.0-0.7) 0.0 x10^3/uL (0.0-0.7) Basophils # (Auto) 0.0 x10^3/uL (0.0-0.2) 0.1 x10^3/uL (0.0-0.2) Prothrombin Time 17.1 SEC (11.7-14.0) Prothromb Time International Ratio 1.4 (0.8-1.1) Sodium Level 144 mmol/L (136-145) 147 mmol/L (136-145) Potassium Level 3.9 mmol/L (3.5-5.1) 3.8 mmol/L (3.5-5.1) Chloride Level 110 mmol/L (98-107) 111 mmol/L (98-107) Carbon Dioxide Level 17 mmol/L (21-32) 14 mmol/L (21-32) Anion Gap 17 (6-14) 22 (6-14) Blood Urea Nitrogen 30 mg/dL (8-26) 31 mg/dL (8-26) Creatinine 2.5 mg/dL (0.7-1.3) 2.8 mg/dL (0.7-1.3) Estimated GFR (Cockcroft-Gault) 27.8 24.4 Glucose Level 250 mg/dL (70-99) 265 mg/dL (70-99) Calcium Level 6.5 mg/dL (8.5-10.1) 6.6 mg/dL (8.5-10.1) Magnesium Level 2.2 mg/dL (1.8-2.4) 2.0 mg/dL (1.8-2.4) Alkaline Phosphatase 87 U/L (46-116) Lactic Acid Level 8.9 mmol/L (0.4-2.0) Phosphorus Level 7.6 mg/dL (2.6-4.7) Urine Collection Type Unknown Urine Color Yellow Urine Clarity Cloudy Urine pH 5.0 Urine Specific [place] >=1.030 Urine Protein 100 mg/dL (NEG-TRACE) Urine Glucose (UA) Negative mg/dL (NEG) Urine Ketones (Stick) Negative mg/dL (NEG) Urine Blood Large (NEG) Urine Nitrite Negative (NEG) Urine Bilirubin Small (NEG) Urine Urobilinogen Dipstick 1.0 mg/dL (0.2 mg/dL) Urine Leukocyte Esterase Negative (NEG) Urine RBC 3-5 /HPF (0-2) Urine WBC 5-10 /HPF (0-4) Urine Squamous Epithelial Cells Occ /LPF Urine Renal Epithelial Cells Few /LPF Urine Amorphous Sediment Present /HPF Urine Bacteria Few /HPF (0-FEW) Urine Granular Casts Few /HPF Urine Waxy Casts Occasional /HPF Urine Mucus Slight /LPF Influenza Type A Antigen Negative (NEGATIVE) Influenza Type B Antigen Negative (NEGATIVE) Test 07/26/19 08:30 07/26/19 10:00 07/26/19 10:05 07/26/19 11:12 O2 Saturation 96 % (92-99) Arterial Blood pH 7.00 (7.35-7.45) Arterial Blood pH (Temp corrected) 7.05 Arterial Blood pCO2 at Patient Temp 49 mmHg (35-46) Arterial Blood pCO2 (Temp correct) 41 mmHg Arterial Blood pO2 at Patient Temp 102 mmHg (75-108) Arterial Blood pO2 (Temp corrected) 80 mmHg Arterial Blood HCO3 12 mmol/L (21-28) Arterial Blood Base Excess -20 mmol/L (-3-3) Lactic Acid Level 9.9 mmol/L (0.4-2.0) Glucose (Fingerstick) 249 mg/dL (70-99) 266 mg/dL (70-99) Medications Current Medications Norepinephrine Bitartrate 250 ml @ 15 mls/hr CONT PRN IV SEE I/O RECORD Last administered on 07/26/19 10:22; Start 07/25/19 at 19:00 Amiodarone HCl 900 mg/Dextrose 518 ml @ 33 mls/hr CONT PRN IV SEE I/O RECORD Last administered on 07/26/19 00:21; Start 07/25/19 at 19:00; Stop 07/26/19 at 00:25; Status DC Fentanyl Citrate (Fentanyl 2ml Vial) 100 mcg 1X ONCE IV Last administered on 07/25/19 19:44; Start 07/25/19 at 19:30; Stop 07/25/19 at 19:31; Status DC Midazolam HCl (Versed) 2 mg 1X ONCE IV Last administered on 07/25/19 19:43; Start 07/25/19 at 19:30; Stop 07/25/19 at 19:31; Status DC Magnesium Sulfate/ Dextrose 100 ml @ 100 mls/hr 1X ONCE IV Last administered on 07/25/19 19:44; Start 07/25/19 at 19:30; Stop 07/25/19 at 20:29; Status DC Buspirone HCl (Buspar) 30 mg Q8H NG Last administered on 07/26/19 04:43; Start 07/25/19 at 20:00; Stop 07/27/19 at 12:01 Acetaminophen (Tylenol) 650 mg Q4H NG Last administered on 07/26/19 08:51; Start 07/25/19 at 20:00 Artificial Tears (Artificial Tears) 1 drop Q6HRS OU Last administered on 07/26/19 06:11; Start 07/26/19 at 00:00 Artificial Tears (Artificial Tears) 1 drop PRN Q15MIN PRN OU DRY EYE; Start 07/25/19 at 19:00 Heparin Sodium (Porcine) (Heparin Sodium) 5,000 unit BID SQ Last administered on 07/26/19 08:52; Start 07/25/19 at 21:00 Pantoprazole Sodium (PROTONIX VIAL for IV PUSH) 40 mg DAILY IVP Last administered on 07/26/19 08:51; Start 07/25/19 at 20:00 Fentanyl Citrate 30 ml @ 0 mls/hr CONT PRN IV PER PROTOCOL. Last administered on 10/19/19at 07:34; Start 07/25/19 at 19:00 Propofol 100 ml @ 0 mls/hr CONT PRN IV PER PROTOCOL.; Start 07/25/19 at 20:00 Midazolam HCl 100 ml @ 0 mls/hr CONT PRN IV PER PROTOCOL. Last administered on 07/25/19at 20:50; Start 07/25/19 at 20:00 Vecuronium Nettie (Norcuron Bolus) 8 mg PRN Q1HR PRN IV SHIVERING; Start 07/25/19 at 19:00 Sodium Bicarbonate (Sodium Bicarb Adult 8.4% Syr) 50 meq 1X ONCE IV Last administered on 07/25/19at 20:30; Start 07/25/19 at 20:30; Stop 07/25/19 at 20:31; Status DC Sodium Chloride 1,000 ml @ 125 mls/hr 1X ONCE IV Last administered on 07/26/19at 01:42; Start 07/26/19 at 01:30; Stop 07/26/19 at 09:29; Status DC Sodium Chloride 1,000 ml @ 1,000 mls/hr 1X ONCE IV Last administered on 07/26/19at 01:30; Start 07/26/19 at 01:30; Stop 07/26/19 at 02:29; Status DC Hydrocortisone Sodium Succinate (Solu-CORTEF) 100 mg 1X ONCE IV Last administered on 07/26/19at 01:44; Start 07/26/19 at 01:45; Stop 07/26/19 at 01:46; Status DC Dobutamine HCl/ Dextrose 250 ml @ 6.566 mls/ hr CONT PRN IV SEE I/O RECORD; Start 07/26/19 at 06:00 Ceftriaxone Sodium (Rocephin) 1 gm Q24H IVP Last administered on 07/26/19at 06:12; Start 07/26/19 at 06:00 Doxycycline Hyclate 100 mg/ Dextrose 100 ml @ 50 mls/hr Q12HR IV Last administered on 07/26/19at 08:51; Start 07/26/19 at 09:00 Amiodarone HCl 900 mg/Dextrose 518 ml @ 0 mls/hr CONT PRN IV PER PROTOCOL; Start 07/26/19 at 08:00; Stop 07/26/19 at 07:55; Status DC Amiodarone HCl 450 mg/Dextrose 259 ml @ 17 mls/hr CONT PRN IV SEE I/O RECORD; Start 07/26/19 at 08:00 Insulin Human Regular 150 unit/ Sodium Chloride 151.5 ml @ 0 mls/hr CONT PRN IV SEE I/O RECORD Last administered on 07/26/19at 09:19; Start 07/26/19 at 08:15 Magnesium Sulfate 50 ml @ 25 mls/hr 1X ONCE IV Last administered on 07/26/19at 10:23; Start 07/26/19 at 09:45; Stop 07/26/19 at 11:44; Status DC Vitals/I & O Vital Sign - Last 24 Hours 07/25/19 07/25/19 07/25/19 07/25/19 18:45 18:54 19:38 19:44 Temp 91.8 Pulse 80 Resp 14 B/P (MAP) Pulse Ox 90 100 100 O2 Delivery Ventilator Ventilator Ventilator Ventilator 07/25/19 07/25/19 07/25/19 07/25/19 20:00 20:00 20:28 20:45 Temp 91.8 Pulse 80 Resp 22 B/P (MAP) 118/80 Pulse Ox 92 O2 Delivery Mechanical Ventilator Ventilator Ventilator 07/25/19 07/25/19 07/25/19 07/25/19 21:00 22:00 23:00 23:40 Temp 91.8 91.8 91.8 91.8 Pulse 80 64 72 80 B/P (MAP) 98/92 80/52 92/64 Pulse Ox 92 100 100 90 O2 Delivery Ventilator Ventilator Ventilator Ventilator 07/25/19 07/25/19 07/25/19 07/25/19 23:42 23:56 23:59 23:59 Temp 91.6 Pulse 82 74 B/P (MAP) 100/40 (60) 88/60 Pulse Ox 100 100 O2 Delivery Ventilator Mechanical Ventilator Ventilator 07/26/19 07/26/19 07/26/19 07/26/19 00:19 01:00 01:00 02:00 Temp 91.6 91.4 91.4 91.4 91.4 Pulse 68 68 68 Resp 14 14 14 B/P (MAP) 90/50 90/50 (63) 90/50 (63) Pulse Ox 100 97 97 97 O2 Delivery Ventilator Ventilator Ventilator 10/1907/26/19 07/26/19 07/26/19 02:00 02:50 03:00 03:00 Temp 91.6 92.5 92.5 92.5 Pulse 68 60 60 Resp 14 B/P (MAP) 90/50 95/65 95/65 (75) Pulse Ox 97 100 97 100 O2 Delivery Ventilator Ventilator Ventilator Ventilator 07/26/19 07/26/19 07/26/19 07/26/19 04:00 04:00 04:00 04:00 Temp 92.5 92.5 92.5 Pulse 59 59 59 Resp 14 B/P (MAP) 94/64 (74) 96/67 96/67 (77) Pulse Ox 100 100 O2 Delivery Mechanical Ventilator Ventilator Ventilator 07/26/19 07/26/19 07/26/19 07/26/19 05:00 05:00 05:35 06:20 Temp 92.5 92.5 92.2 92.5 92.2 Pulse 59 59 59 Resp 14 14 B/P (MAP) 93/67 93/56 (68) 80/56 (64) Pulse Ox 100 100 100 100 O2 Delivery Ventilator Ventilator Ventilator Ventilator 07/26/19 07/26/19 07/26/19 07/26/19 06:20 07:00 07:00 07:34 Temp 92.5 91.8 91.8 91.8 Pulse 59 62 62 Resp 18 18 14 B/P (MAP) 80/56 99/64 99/64 (76) Pulse Ox 100 100 100 100 O2 Delivery Ventilator Ventilator Ventilator Ventilator 07/26/19 07/26/19 07/26/19 07/26/19 08:00 08:00 08:00 08:00 Temp 91.8 91.8 91.8 Pulse 60 60 60 Resp 15 15 B/P (MAP) 103/65 (78) 103/65 103/65 (78) Pulse Ox 100 100 O2 Delivery Ventilator Mechanical Ventilator Ventilator 07/26/19 07/26/19 07/26/19 07/26/19 08:04 08:22 09:00 09:00 Temp 91.6 91.6 91.6 Pulse 62 62 Resp 19 19 B/P (MAP) 125/77 (93) 125/77 Pulse Ox 100 100 100 100 O2 Delivery Ventilator Ventilator Ventilator Ventilator 07/26/19 07/26/19 07/26/19 07/26/19 09:11 09:45 10:00 10:00 Temp 91.4 91.8 91.8 91.4 91.8 Pulse 60 59 59 Resp 19 21 21 B/P (MAP) 110/78 (89) 110/74 (86) 110/74 Pulse Ox 100 100 100 100 O2 Delivery Ventilator Ventilator Ventilator Ventilator 07/26/19 07/26/19 07/26/19 10:43 10:45 11:00 Temp 91.9 91.9 91.9 Pulse 61 59 Resp 20 19 B/P (MAP) 137/79 (98) 115/69 Pulse Ox 100 100 100 O2 Delivery Ventilator Ventilator Ventilator Intake and Output 07/25/19 07/25/19 07/26/19 15:00 23:00 07:00 Intake Total 0 ml 166 ml Output Total 170 ml 275 ml Balance -170 ml -109 ml MARYA MATTHEWS MD Jul 26, 2019 12:16
--- NOTE | 2019-07-26 13:49 | PDOC2 ---
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 They had a AICD def device at the plant, and no shockable rhythm was determined by the device.EMS found him in PEA arrest, Non-con head CT was negative acute. EKG was OK, no trop elevation, Pt seen by Dr. King in CV consult there is a note from [place] [facility]. CT scan was negative for PE, CT angiogram of the lung is ruled out PE No reflexes per RN- No gag, withdrawl to pain, No Pupillary reflex . Neuro consulted Per RN PMH re[ported by family- HTN, Some heart condition Bicarb was given Past Medical History Past Medical History Unable to obtain Pt is Intubated, unresponsive, No reflexes HTN and some Heart hx per family Cardiovascular: No pertinent hx Pulmonary: No pertinent hx GI: No pertinent hx Heme/Onc: No pertinent hx Family History Family History Unable to obtain Pt is Intubated, unresponsive, No reflexes Social History Social History Unable to obtain Pt is Intubated, unresponsive, No reflexes ALCOHOL: rare Drugs: None Current Medications Current Medications Current Medications Norepinephrine Bitartrate 250 ml @ 15 mls/hr CONT PRN IV SEE I/O RECORD Last administered on 07/26/19at 10:22; Start 07/25/19 at 19:00 Amiodarone HCl 900 mg/Dextrose 518 ml @ 33 mls/hr CONT PRN IV SEE I/O RECORD Last administered on 07/26/19at 00:21; Start 07/25/19 at 19:00; Stop 07/26/19 at 00:25; Status DC Fentanyl Citrate (Fentanyl 2ml Vial) 100 mcg 1X ONCE IV Last administered on 07/25/19at 19:44; Start 07/25/19 at 19:30; Stop 07/25/19 at 19:31; Status DC Midazolam HCl (Versed) 2 mg 1X ONCE IV Last administered on 07/25/19at 19:43; Start 07/25/19 at 19:30; Stop 07/25/19 at 19:31; Status DC Magnesium Sulfate/ Dextrose 100 ml @ 100 mls/hr 1X ONCE IV Last administered on 07/25/19 19:44; Start 07/25/19 at 19:30; Stop 07/25/19 at 20:29; Status DC Buspirone HCl (Buspar) 30 mg Q8H NG Last administered on 07/26/19 12:27; Start 07/25/19 at 20:00; Stop 07/27/19 at 12:01 Acetaminophen (Tylenol) 650 mg Q4H NG Last administered on 07/26/19 12:28; Start 07/25/19 at 20:00 Artificial Tears (Artificial Tears) 1 drop Q6HRS OU Last administered on 07/26/19 12:27; Start 07/26/19 at 00:00 Artificial Tears (Artificial Tears) 1 drop PRN Q15MIN PRN OU DRY EYE; Start 07/25/19 at 19:00 Heparin Sodium (Porcine) (Heparin Sodium) 5,000 unit BID SQ Last administered on 07/26/19 08:52; Start 07/25/19 at 21:00 Pantoprazole Sodium (PROTONIX VIAL for IV PUSH) 40 mg DAILY IVP Last administered on 07/26/19 08:51; Start 07/25/19 at 20:00 Fentanyl Citrate 30 ml @ 0 mls/hr CONT PRN IV PER PROTOCOL. Last administered on 07/26/19 07:34; Start 07/25/19 at 19:00 Propofol 100 ml @ 0 mls/hr CONT PRN IV PER PROTOCOL.; Start 07/25/19 at 20:00 Midazolam HCl 100 ml @ 0 mls/hr CONT PRN IV PER PROTOCOL. Last administered on 07/25/19at 20:50; Start 07/25/19 at 20:00 Vecuronium Sharon (Norcuron Bolus) 8 mg PRN Q1HR PRN IV SHIVERING; Start 07/25/19 at 19:00 Sodium Bicarbonate (Sodium Bicarb Adult 8.4% Syr) 50 meq 1X ONCE IV Last administered on 07/25/19at 20:30; Start 07/25/19 at 20:30; Stop 07/25/19 at 20:31; Status DC Sodium Chloride 1,000 ml @ 125 mls/hr 1X ONCE IV Last administered on 07/26/19at 01:42; Start 07/26/19 at 01:30; Stop 07/26/19 at 09:29; Status DC Sodium Chloride 1,000 ml @ 1,000 mls/hr 1X ONCE IV Last administered on 07/26/19at 01:30; Start 07/26/19 at 01:30; Stop 07/26/19 at 02:29; Status DC Hydrocortisone Sodium Succinate (Solu-CORTEF) 100 mg 1X ONCE IV Last administered on 07/26/19at 01:44; Start 07/26/19 at 01:45; Stop 07/26/19 at 01:46; Status DC Dobutamine HCl/ Dextrose 250 ml @ 6.566 mls/ hr CONT PRN IV SEE I/O RECORD; Start 07/26/19 at 06:00 Ceftriaxone Sodium (Rocephin) 1 gm Q24H IVP Last administered on 07/26/19at 06:12; Start 07/26/19 at 06:00 Doxycycline Hyclate 100 mg/ Dextrose 100 ml @ 50 mls/hr Q12HR IV Last administered on 07/26/19at 08:51; Start 07/26/19 at 09:00 Amiodarone HCl 900 mg/Dextrose 518 ml @ 0 mls/hr CONT PRN IV PER PROTOCOL; Start 07/26/19 at 08:00; Stop 07/26/19 at 07:55; Status DC Amiodarone HCl 450 mg/Dextrose 259 ml @ 17 mls/hr CONT PRN IV SEE I/O RECORD; Start 07/26/19 at 08:00 Insulin Human Regular 150 unit/ Sodium Chloride 151.5 ml @ 0 mls/hr CONT PRN IV SEE I/O RECORD Last administered on 07/26/19at 09:19; Start 07/26/19 at 08:15 Magnesium Sulfate 50 ml @ 25 mls/hr 1X ONCE IV Last administered on 07/26/19at 10:23; Start 07/26/19 at 09:45; Stop 07/26/19 at 11:44; Status DC Allergies Allergies: Coded Allergies: Unable to Assess (Unverified , 07/25/19) ROS Review of System Unable to obtain Pt is Intubated, unresponsive, No reflexes Physical Exam Physical Exam General: Intubated ,unresponsive HEENT: Intubated Neck Supple Lungs: Clear to auscultation, Heart: S1S2, no murmurs, irregularly irregular Abdomen: Soft Extremities: No clubbing, No cyanosis, No edema, Skin: No rashes, No breakdown Neuro: per neurologist WILMAR Victoria + Vital Signs Vital Signs Date Time Temp Pulse Resp B/P (MAP) Pulse Ox O2 Delivery O2 Flow Rate FiO2 07/26/19 12:00 91.9 63 19 116/85 (95) 100 Ventilator 91.9 Assessment & Plan FABIAN -cardiac arrest in field,PEA arrest s/p CPR and shocks,On Cooling protocol Check CK , Supportive care , Pressors, IVF , I/O Leukocytosis, lactic acidosis ? Probable ARDS/septic shock? Pulm Infiltrates on CT chest ID consulted Hypernatremia -Mild , Monitor Metabolic acidosis IVF with Bicarb (D5 W with 3 amps of Bicarb) HX Of htn and unknown cardiac condition per family Hypotensive on pressors Labs Labs Laboratory Tests Test 07/25/19 18:25 07/25/19 19:55 07/25/19 20:01 07/26/19 02:05 White Blood Count 21.8 x10^3/uL (4.0-11.0) Red Blood Count 5.56 x10^6/uL (4.30-5.70) Hemoglobin 15.2 g/dL (13.0-17.5) Hematocrit 47.7 % (39.0-53.0) Mean Corpuscular Volume 86 fL (79-100) Mean Corpuscular Hemoglobin 27 pg (25-35) Mean Corpuscular Hemoglobin Concent 32 g/dL (31-37) Red Cell Distribution Width 14.5 % (11.5-14.5) Platelet Count 193 x10^3/uL (140-400) Neutrophils (%) (Auto) 81 % (31-73) Lymphocytes (%) (Auto) 10 % (24-48) Monocytes (%) (Auto) 9 % (0-9) Eosinophils (%) (Auto) 0 % (0-3) Basophils (%) (Auto) 0 % (0-3) Neutrophils # (Auto) 17.7 x10^3/uL (1.8-7.7) Lymphocytes # (Auto) 2.1 x10^3/uL (1.0-4.8) Monocytes # (Auto) 1.9 x10^3/uL (0.0-1.1) Eosinophils # (Auto) 0.1 x10^3/uL (0.0-0.7) Basophils # (Auto) 0.1 x10^3/uL (0.0-0.2) Segmented Neutrophils % 57 % (35-66) Band Neutrophils % 22 % (0-9) Lymphocytes % 9 % (24-48) Monocytes % 11 % (0-10) Eosinophils % 1 % (0-5) Platelet Estimate Adequate (ADEQUATE) Prothrombin Time 16.1 SEC (11.7-14.0) Prothromb Time International Ratio 1.3 (0.8-1.1) Sodium Level 148 mmol/L (136-145) Potassium Level 4.0 mmol/L (3.5-5.1) Chloride Level 110 mmol/L (98-107) Carbon Dioxide Level 24 mmol/L (21-32) Anion Gap 14 (6-14) Blood Urea Nitrogen 28 mg/dL (8-26) Creatinine 2.3 mg/dL (0.7-1.3) Estimated GFR (Cockcroft-Gault) 30.6 Glucose Level 157 mg/dL (70-99) Calcium Level 7.1 mg/dL (8.5-10.1) Ionized Calcium 0.92 mmol/L (1.13-1.32) Phosphorus Level 5.7 mg/dL (2.6-4.7) Magnesium Level 1.8 mg/dL (1.8-2.4) O2 Saturation 99 % (92-99) Arterial Blood pH 7.22 (7.35-7.45) Arterial Blood pH (Temp corrected) 7.24 Arterial Blood pCO2 at Patient Temp 41 mmHg (35-46) Arterial Blood pCO2 (Temp correct) 38 mmHg Arterial Blood pO2 at Patient Temp 442 mmHg (75-108) Arterial Blood pO2 (Temp corrected) 434 mmHg Arterial Blood HCO3 16 mmol/L (21-28) Arterial Blood Base Excess -11 mmol/L (-3-3) FiO2 100 Glucose (Fingerstick) 144 mg/dL (70-99) 185 mg/dL (70-99) Test 07/26/19 02:15 07/26/19 06:00 07/26/19 07:50 07/26/19 08:00 White Blood Count 23.5 x10^3/uL (4.0-11.0) 25.5 x10^3/uL (4.0-11.0) Red Blood Count 5.97 x10^6/uL (4.30-5.70) 5.87 x10^6/uL (4.30-5.70) Hemoglobin 16.4 g/dL (13.0-17.5) 16.1 g/dL (13.0-17.5) Hematocrit 51.2 % (39.0-53.0) 51.1 % (39.0-53.0) Mean Corpuscular Volume 86 fL (79-100) 87 fL (79-100) Mean Corpuscular Hemoglobin 27 pg (25-35) 27 pg (25-35) Mean Corpuscular Hemoglobin Concent 32 g/dL (31-37) 31 g/dL (31-37) Red Cell Distribution Width 14.4 % (11.5-14.5) 14.7 % (11.5-14.5) Platelet Count 197 x10^3/uL (140-400) 208 x10^3/uL (140-400) Neutrophils (%) (Auto) 82 % (31-73) 88 % (31-73) Lymphocytes (%) (Auto) 9 % (24-48) 6 % (24-48) Monocytes (%) (Auto) 8 % (0-9) 6 % (0-9) Eosinophils (%) (Auto) 0 % (0-3) 0 % (0-3) Basophils (%) (Auto) 0 % (0-3) 0 % (0-3) Neutrophils # (Auto) 19.3 x10^3/uL (1.8-7.7) 22.4 x10^3/uL (1.8-7.7) Lymphocytes # (Auto) 2.1 x10^3/uL (1.0-4.8) 1.4 x10^3/uL (1.0-4.8) Monocytes # (Auto) 1.9 x10^3/uL (0.0-1.1) 1.6 x10^3/uL (0.0-1.1) Eosinophils # (Auto) 0.0 x10^3/uL (0.0-0.7) 0.0 x10^3/uL (0.0-0.7) Basophils # (Auto) 0.0 x10^3/uL (0.0-0.2) 0.1 x10^3/uL (0.0-0.2) Prothrombin Time 17.1 SEC (11.7-14.0) Prothromb Time International Ratio 1.4 (0.8-1.1) Sodium Level 144 mmol/L (136-145) 147 mmol/L (136-145) Potassium Level 3.9 mmol/L (3.5-5.1) 3.8 mmol/L (3.5-5.1) Chloride Level 110 mmol/L (98-107) 111 mmol/L (98-107) Carbon Dioxide Level 17 mmol/L (21-32) 14 mmol/L (21-32) Anion Gap 17 (6-14) 22 (6-14) Blood Urea Nitrogen 30 mg/dL (8-26) 31 mg/dL (8-26) Creatinine 2.5 mg/dL (0.7-1.3) 2.8 mg/dL (0.7-1.3) Estimated GFR (Cockcroft-Gault) 27.8 24.4 Glucose Level 250 mg/dL (70-99) 265 mg/dL (70-99) Calcium Level 6.5 mg/dL (8.5-10.1) 6.6 mg/dL (8.5-10.1) Magnesium Level 2.2 mg/dL (1.8-2.4) 2.0 mg/dL (1.8-2.4) Alkaline Phosphatase 87 U/L (46-116) Lactic Acid Level 8.9 mmol/L (0.4-2.0) Phosphorus Level 7.6 mg/dL (2.6-4.7) Urine Collection Type Unknown Urine Color Yellow Urine Clarity Cloudy Urine pH 5.0 Urine Specific [place] >=1.030 Urine Protein 100 mg/dL (NEG-TRACE) Urine Glucose (UA) Negative mg/dL (NEG) Urine Ketones (Stick) Negative mg/dL (NEG) Urine Blood Large (NEG) Urine Nitrite Negative (NEG) Urine Bilirubin Small (NEG) Urine Urobilinogen Dipstick 1.0 mg/dL (0.2 mg/dL) Urine Leukocyte Esterase Negative (NEG) Urine RBC 3-5 /HPF (0-2) Urine WBC 5-10 /HPF (0-4) Urine Squamous Epithelial Cells Occ /LPF Urine Renal Epithelial Cells Few /LPF Urine Amorphous Sediment Present /HPF Urine Bacteria Few /HPF (0-FEW) Urine Granular Casts Few /HPF Urine Waxy Casts Occasional /HPF Urine Mucus Slight /LPF Influenza Type A Antigen Negative (NEGATIVE) Influenza Type B Antigen Negative (NEGATIVE) Test 07/26/19 08:30 07/26/19 10:00 07/26/19 10:05 07/26/19 11:12 O2 Saturation 96 % (92-99) Arterial Blood pH 7.00 (7.35-7.45) Arterial Blood pH (Temp corrected) 7.05 Arterial Blood pCO2 at Patient Temp 49 mmHg (35-46) Arterial Blood pCO2 (Temp correct) 41 mmHg Arterial Blood pO2 at Patient Temp 102 mmHg (75-108) Arterial Blood pO2 (Temp corrected) 80 mmHg Arterial Blood HCO3 12 mmol/L (21-28) Arterial Blood Base Excess -20 mmol/L (-3-3) Lactic Acid Level 9.9 mmol/L (0.4-2.0) Glucose (Fingerstick) 249 mg/dL (70-99) 266 mg/dL (70-99) Test 07/26/19 12:17 Glucose (Fingerstick) 199 mg/dL (70-99) Laboratory Tests Test 07/25/19 18:25 07/25/19 19:55 07/25/19 20:01 07/26/19 02:05 White Blood Count 21.8 x10^3/uL (4.0-11.0) Red Blood Count 5.56 x10^6/uL (4.30-5.70) Hemoglobin 15.2 g/dL (13.0-17.5) Hematocrit 47.7 % (39.0-53.0) Mean Corpuscular Volume 86 fL (79-100) Mean Corpuscular Hemoglobin 27 pg (25-35) Mean Corpuscular Hemoglobin Concent 32 g/dL (31-37) Red Cell Distribution Width 14.5 % (11.5-14.5) Platelet Count 193 x10^3/uL (140-400) Neutrophils (%) (Auto) 81 % (31-73) Lymphocytes (%) (Auto) 10 % (24-48) Monocytes (%) (Auto) 9 % (0-9) Eosinophils (%) (Auto) 0 % (0-3) Basophils (%) (Auto) 0 % (0-3) Neutrophils # (Auto) 17.7 x10^3/uL (1.8-7.7) Lymphocytes # (Auto) 2.1 x10^3/uL (1.0-4.8) Monocytes # (Auto) 1.9 x10^3/uL (0.0-1.1) Eosinophils # (Auto) 0.1 x10^3/uL (0.0-0.7) Basophils # (Auto) 0.1 x10^3/uL (0.0-0.2) Segmented Neutrophils % 57 % (35-66) Band Neutrophils % 22 % (0-9) Lymphocytes % 9 % (24-48) Monocytes % 11 % (0-10) Eosinophils % 1 % (0-5) Platelet Estimate Adequate (ADEQUATE) Prothrombin Time 16.1 SEC (11.7-14.0) Prothromb Time International Ratio 1.3 (0.8-1.1) Sodium Level 148 mmol/L (136-145) Potassium Level 4.0 mmol/L (3.5-5.1) Chloride Level 110 mmol/L (98-107) Carbon Dioxide Level 24 mmol/L (21-32) Anion Gap 14 (6-14) Blood Urea Nitrogen 28 mg/dL (8-26) Creatinine 2.3 mg/dL (0.7-1.3) Estimated GFR (Cockcroft-Gault) 30.6 Glucose Level 157 mg/dL (70-99) Calcium Level 7.1 mg/dL (8.5-10.1) Ionized Calcium 0.92 mmol/L (1.13-1.32) Phosphorus Level 5.7 mg/dL (2.6-4.7) Magnesium Level 1.8 mg/dL (1.8-2.4) O2 Saturation 99 % (92-99) Arterial Blood pH 7.22 (7.35-7.45) Arterial Blood pH (Temp corrected) 7.24 Arterial Blood pCO2 at Patient Temp 41 mmHg (35-46) Arterial Blood pCO2 (Temp correct) 38 mmHg Arterial Blood pO2 at Patient Temp 442 mmHg (75-108) Arterial Blood pO2 (Temp corrected) 434 mmHg Arterial Blood HCO3 16 mmol/L (21-28) Arterial Blood Base Excess -11 mmol/L (-3-3) FiO2 100 Glucose (Fingerstick) 144 mg/dL (70-99) 185 mg/dL (70-99) Test 07/26/19 02:15 07/26/19 06:00 07/26/19 07:50 07/26/19 08:00 White Blood Count 23.5 x10^3/uL (4.0-11.0) 25.5 x10^3/uL (4.0-11.0) Red Blood Count 5.97 x10^6/uL (4.30-5.70) 5.87 x10^6/uL (4.30-5.70) Hemoglobin 16.4 g/dL (13.0-17.5) 16.1 g/dL (13.0-17.5) Hematocrit 51.2 % (39.0-53.0) 51.1 % (39.0-53.0) Mean Corpuscular Volume 86 fL (79-100) 87 fL (79-100) Mean Corpuscular Hemoglobin 27 pg (25-35) 27 pg (25-35) Mean Corpuscular Hemoglobin Concent 32 g/dL (31-37) 31 g/dL (31-37) Red Cell Distribution Width 14.4 % (11.5-14.5) 14.7 % (11.5-14.5) Platelet Count 197 x10^3/uL (140-400) 208 x10^3/uL (140-400) Neutrophils (%) (Auto) 82 % (31-73) 88 % (31-73) Lymphocytes (%) (Auto) 9 % (24-48) 6 % (24-48) Monocytes (%) (Auto) 8 % (0-9) 6 % (0-9) Eosinophils (%) (Auto) 0 % (0-3) 0 % (0-3) Basophils (%) (Auto) 0 % (0-3) 0 % (0-3) Neutrophils # (Auto) 19.3 x10^3/uL (1.8-7.7) 22.4 x10^3/uL (1.8-7.7) Lymphocytes # (Auto) 2.1 x10^3/uL (1.0-4.8) 1.4 x10^3/uL (1.0-4.8) Monocytes # (Auto) 1.9 x10^3/uL (0.0-1.1) 1.6 x10^3/uL (0.0-1.1) Eosinophils # (Auto) 0.0 x10^3/uL (0.0-0.7) 0.0 x10^3/uL (0.0-0.7) Basophils # (Auto) 0.0 x10^3/uL (0.0-0.2) 0.1 x10^3/uL (0.0-0.2) Prothrombin Time 17.1 SEC (11.7-14.0) Prothromb Time International Ratio 1.4 (0.8-1.1) Sodium Level 144 mmol/L (136-145) 147 mmol/L (136-145) Potassium Level 3.9 mmol/L (3.5-5.1) 3.8 mmol/L (3.5-5.1) Chloride Level 110 mmol/L (98-107) 111 mmol/L (98-107) Carbon Dioxide Level 17 mmol/L (21-32) 14 mmol/L (21-32) Anion Gap 17 (6-14) 22 (6-14) Blood Urea Nitrogen 30 mg/dL (8-26) 31 mg/dL (8-26) Creatinine 2.5 mg/dL (0.7-1.3) 2.8 mg/dL (0.7-1.3) Estimated GFR (Cockcroft-Gault) 27.8 24.4 Glucose Level 250 mg/dL (70-99) 265 mg/dL (70-99) Calcium Level 6.5 mg/dL (8.5-10.1) 6.6 mg/dL (8.5-10.1) Magnesium Level 2.2 mg/dL (1.8-2.4) 2.0 mg/dL (1.8-2.4) Alkaline Phosphatase 87 U/L (46-116) Lactic Acid Level 8.9 mmol/L (0.4-2.0) Phosphorus Level 7.6 mg/dL (2.6-4.7) Urine Collection Type Unknown Urine Color Yellow Urine Clarity Cloudy Urine pH 5.0 Urine Specific [place] >=1.030 Urine Protein 100 mg/dL (NEG-TRACE) Urine Glucose (UA) Negative mg/dL (NEG) Urine Ketones (Stick) Negative mg/dL (NEG) Urine Blood Large (NEG) Urine Nitrite Negative (NEG) Urine Bilirubin Small (NEG) Urine Urobilinogen Dipstick 1.0 mg/dL (0.2 mg/dL) Urine Leukocyte Esterase Negative (NEG) Urine RBC 3-5 /HPF (0-2) Urine WBC 5-10 /HPF (0-4) Urine Squamous Epithelial Cells Occ /LPF Urine Renal Epithelial Cells Few /LPF Urine Amorphous Sediment Present /HPF Urine Bacteria Few /HPF (0-FEW) Urine Granular Casts Few /HPF Urine Waxy Casts Occasional /HPF Urine Mucus Slight /LPF Influenza Type A Antigen Negative (NEGATIVE) Influenza Type B Antigen Negative (NEGATIVE) Test 07/26/19 08:30 07/26/19 10:00 07/26/19 10:05 07/26/19 11:12 O2 Saturation 96 % (92-99) Arterial Blood pH 7.00 (7.35-7.45) Arterial Blood pH (Temp corrected) 7.05 Arterial Blood pCO2 at Patient Temp 49 mmHg (35-46) Arterial Blood pCO2 (Temp correct) 41 mmHg Arterial Blood pO2 at Patient Temp 102 mmHg (75-108) Arterial Blood pO2 (Temp corrected) 80 mmHg Arterial Blood HCO3 12 mmol/L (21-28) Arterial Blood Base Excess -20 mmol/L (-3-3) Lactic Acid Level 9.9 mmol/L (0.4-2.0) Glucose (Fingerstick) 249 mg/dL (70-99) 266 mg/dL (70-99) Test 07/26/19 12:17 Glucose (Fingerstick) 199 mg/dL (70-99) Review All relevant outside records, renal labs, imaging studies, telemetry/EKG's were reviewed. Images Images CxR Cardiomegaly with mild Central vascular congestion perhaps related to semiupright position. Stable support lines and tubes. CT scan was negative for PE, CT angiogram of the chest reportedly showed bibasilar infiltrate, no central pulmonary embolism. CT of the head was negative for bleed. JONH PENA MD Jul 26, 2019 13:49
[2019-07-26 14:32] LABS: BASO # 0.1 x10^3/uL (0.0-0.2); BASO % 0 % (0-3); EOS % 0 % (0-3); HEMATOCRIT 46.7 % (39.0-53.0); LYMPH # 0.8 x10^3/uL (1.0-4.8); LYMPH % 5 % (24-48); MEAN CORPUSCULAR HEMOGLOBIN 28 pg (25-35); MEAN CORPUSCULAR HGB CONC 32 g/dL (31-37); MEAN CORPUSCULAR VOLUME 86 fL (79-100); MONO # 0.9 x10^3/uL (0.0-1.1); MONO % 6 % (0-9); NEUT # 13.9 x10^3/uL (1.8-7.7); NEUT % 89 % (31-73); PLATELET COUNT 100 x10^3/uL (140-400); RED BLOOD COUNT 5.46 x10^6/uL (4.30-5.70); RED CELL DISTRIBUTION WIDTH 14.3 % (11.5-14.5); WHITE BLOOD COUNT 15.6 x10^3/uL (4.0-11.0)
[2019-07-26 14:44] LABS: CALCIUM 6.7 mg/dL (8.5-10.1); CREATININE 2.6 mg/dL (0.7-1.3); GFR 26.6; MAGNESIUM 2.7 mg/dL (1.8-2.4)
[2019-07-26 14:52] LABS: PROTHROMBIN TIME PATIENT 17.4 SEC (11.7-14.0)
[2019-07-26] MEDS: SODIUM BICARBONATE VIAL 150 MEQ in IV DEXTROSE 5% 1,000 ML IV SCH (15:07)
--- NOTE | 2019-07-26 15:10 | PDOC2 ---
NEUROLOGY CONSULT Date of Admission Date of Admission DATE: 07/26/19 TIME: 14:53 Reason for Consult Reason for Consult: IMPRESSION: Anoxic/hypoxic encephalopathy. Metabolic encephalopathy. S/p Cardiac arrest, downtime estimated > 25 minutes. Respiratory failure. Cardiogenic shock. Lactic acidosis. Renal failure. Leukocytosis. Hypocalcemia. UTI? Poor prognosis. RECOMMENDATIONS/PLAN: Received hypothermia therapy on warming up processes. Continue life support in ICU at the present time. Treat medical and cardiac diseases. EEG after warming up. HISTORY OF THE PRESENT ILLNESS: This is a 48-year-old [place] male patient was was admitted in [facility] due to status post cardiopulmonary arrest in [place]. The patient is currently in coma. 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 After 33 minutes, he gained circulation, but no spontaneous breath. PAST MEDICAL HISTORY: Heart disease? HTN. PAST SURGERY HISTORY: No major surgery recently. ALLERGY: Unknown MEDICATIONS: Refer to [facility] HISTORY: Non contributory. SOCIAL HISTORY: Denies smoking and illicit drug use. He drinks alcohol occasionally per reports. REVIEW OF SYSTEMS: Constitutional: Obese. Head: No recent traumatic brain or head injury. Skin: No edema, or rash. Ear: No infection. Eyes: No vision loss or color blindness. Nose: No bleeding or purulent discharges. Hearing: No hearing decrease. Neck: No injury. Cardiac: HTN. Pulmonary: No COPD. GI: No GI ulcer, GI bleeding. Urinary/genital: No dysuria, incontinence, urinary retention. Endocrinologic: Obesity. Skeletomuscular: No muscular atrophy, deformity. Neurological: see HP. Psychiatric: Denies drug use/abuse. Otherwise, not [id number] review of systems. PHYSICAL EXAMINATION: General appearance is in coma. HEENT: Normocephalic and nontraumatic. Eyes, nose, ears, and throat are unremarkable. Neck is supple. No lymphadenopathy. No crepitus. Cardiovascular: S1, S2. Pulmonary: On vent. Abdomen: Bowel sounds are not appreciated. Extremities: No rash, lesions. No restriction of range of motion NEUROLOGICAL EXAMINATION: On vent. In coma. Not oriented to time, place and person. Pupil 1-2 mm, no reaction to light stimuli. EOMI not elicited. CN: no focal findings. Muscle tone: Decreased.. Muscle strength: No movements to stimuli. DTR: 1+ Plantar reflex: no response bilaterally Gait: not able to walk. Sensory exam: no response to pain stimuli. Not able to access cerebellar signs. F-T-N test not performed due to coma. Current Medications Current Medications Current Medications Norepinephrine Bitartrate 250 ml @ 15 mls/hr CONT PRN IV SEE I/O RECORD Last administered on 07/26/19at 10:22; Start 07/25/19 at 19:00 Amiodarone HCl 900 mg/Dextrose 518 ml @ 33 mls/hr CONT PRN IV SEE I/O RECORD Last administered on 07/26/19 00:21; Start 07/25/19 at 19:00; Stop 07/26/19 at 00:25; Status DC Fentanyl Citrate (Fentanyl 2ml Vial) 100 mcg 1X ONCE IV Last administered on 07/25/19 19:44; Start 07/25/19 at 19:30; Stop 07/25/19 at 19:31; Status DC Midazolam HCl (Versed) 2 mg 1X ONCE IV Last administered on 07/25/19at 19:43; Start 07/25/19 at 19:30; Stop 07/25/19 at 19:31; Status DC Magnesium Sulfate/ Dextrose 100 ml @ 100 mls/hr 1X ONCE IV Last administered on 07/25/19at 19:44; Start 07/25/19 at 19:30; Stop 07/25/19 at 20:29; Status DC Buspirone HCl (Buspar) 30 mg Q8H NG Last administered on 07/26/19 12:27; Start 07/25/19 at 20:00; Stop 07/27/19 at 12:01 Acetaminophen (Tylenol) 650 mg Q4H NG Last administered on 07/26/19at 12:28; Start 07/25/19 at 20:00 Artificial Tears (Artificial Tears) 1 drop Q6HRS OU Last administered on 07/26/19at 12:27; Start 07/26/19 at 00:00 Artificial Tears (Artificial Tears) 1 drop PRN Q15MIN PRN OU DRY EYE; Start 07/25/19 at 19:00 Heparin Sodium (Porcine) (Heparin Sodium) 5,000 unit BID SQ Last administered on 07/26/19at 08:52; Start 07/25/19 at 21:00 Pantoprazole Sodium (PROTONIX VIAL for IV PUSH) 40 mg DAILY IVP Last administered on 07/26/19 08:51; Start 07/25/19 at 20:00 Fentanyl Citrate 30 ml @ 0 mls/hr CONT PRN IV PER PROTOCOL. Last administered on 07/26/19 07:34; Start 07/25/19 at 19:00 Propofol 100 ml @ 0 mls/hr CONT PRN IV PER PROTOCOL.; Start 07/25/19 at 20:00 Midazolam HCl 100 ml @ 0 mls/hr CONT PRN IV PER PROTOCOL. Last administered on 07/25/19 20:50; Start 07/25/19 at 20:00 Vecuronium [place] (Norcuron Bolus) 8 mg PRN Q1HR PRN IV SHIVERING; Start 07/25/19 at 19:00 Sodium Bicarbonate (Sodium Bicarb Adult 8.4% Syr) 50 meq 1X ONCE IV Last administered on 07/25/19 20:30; Start 07/25/19 at 20:30; Stop 07/25/19 at 20:31; Status DC Sodium Chloride 1,000 ml @ 125 mls/hr 1X ONCE IV Last administered on 1 01:42; Start 07/26/19 at 01:30; Stop 07/26/19 at 09:29; Status DC Sodium Chloride 1,000 ml @ 1,000 mls/hr 1X ONCE IV Last administered on 07/26/19 01:30; Start 07/26/19 at 01:30; Stop 07/26/19 at 02:29; Status DC Hydrocortisone Sodium Succinate (Solu-CORTEF) 100 mg 1X ONCE IV Last administered on 07/26/19 01:44; Start 07/26/19 at 01:45; Stop 07/26/19 at 0 1:46; Status DC Dobutamine HCl/ Dextrose 250 ml @ 6.566 mls/ hr CONT PRN IV SEE I/O RECORD; Start 07/26/19 at 06:00 Ceftriaxone Sodium (Rocephin) 1 gm Q24H IVP Last administered on 07/26/19 06:12; Start 07/26/19 at 06:00 Doxycycline Hyclate 100 mg/ Dextrose 100 ml @ 50 mls/hr Q12HR IV Last administered on 07/26/19 08:51; Start 07/26/19 at 09:00 Amiodarone HCl 900 mg/Dextrose 518 ml @ 0 mls/hr CONT PRN IV PER PROTOCOL; Start 07/26/19 at 08:00; Stop 07/26/19 at 07:55; Status DC Amiodarone HCl 450 mg/Dextrose 259 ml @ 17 mls/hr CONT PRN IV SEE I/O RECORD; Start 07/26/19 at 08:00 Insulin Human Regular 150 unit/ Sodium Chloride 151.5 ml @ 0 mls/hr CONT PRN IV SEE I/O RECORD Last administered on 07/26/19at 09:19; Start 07/26/19 at 08:15 Magnesium Sulfate 50 ml @ 25 mls/hr 1X ONCE IV Last administered on 07/26/19at 10:23; Start 07/26/19 at 09:45; Stop 07/26/19 at 11:44; Status DC Sodium Bicarbonate 150 meq/Dextrose 1,150 ml @ 125 mls/hr Q9H12M IV ; Start 07/26/19 at 15:00 Allergies Allergies: Allergies Coded Allergies Type Severity Reaction Last Updated Verified Unable to Assess 07/25/19 No ROS Review of System The patient denies any associated fevers, chills, headache, ear pain, rhinorrhea, sore throat, stiff neck, productive cough, chest pain, shortness of breath, back or flank pain, abdominal pain, nausea, vomiting, diarrhea, constipation, dysuria, rash, numbness, weakness, tingling, incontinence, difficulty ambulating, or diaphoresis. Physical Exam Physical Exam General: Well developed, well nourished, no acute distress, well appearing HEENT: Pupils equally round and reactive to light, EOMI, no discharge, normal conjunctiva Neck: Supple, no nuchal rigidity, no JVD, trachea midline, no tenderness Cardiac: RRR, no murmurs, no gallops, no rubs Chest/Lungs: CTAB, no wheeze, no rhonchi, no crackles Abdomen: soft, non-distended, no guarding, no peritoneal signs, non-tender Back: No tenderness Extremities: no edema, pulses intact, non-tender,capillary refill <3 sec bilateral upper and lower extremities, Neuro: Alert and oriented x 4, no focal deficits, normal speech Vitals Vitals: Vital Signs Date Time Temp Pulse Resp B/P (MAP) Pulse Ox O2 Delivery O2 Flow Rate FiO2 07/26/19 14:00 91.6 64 20 129/67 100 Ventilator Labs Labs Laboratory Tests Test 07/25/19 18:25 07/25/19 19:55 07/25/19 20:01 07/26/19 02:05 White Blood Count 21.8 x10^3/uL (4.0-11.0) Red Blood Count 5.56 x10^6/uL (4.30-5.70) Hemoglobin 15.2 g/dL (13.0-17.5) Hematocrit 47.7 % (39.0-53.0) Mean Corpuscular Volume 86 fL (79-100) Mean Corpuscular Hemoglobin 27 pg (25-35) Mean Corpuscular Hemoglobin Concent 32 g/dL (31-37) Red Cell Distribution Width 14.5 % (11.5-14.5) Platelet Count 193 x10^3/uL (140-400) Neutrophils (%) (Auto) 81 % (31-73) Lymphocytes (%) (Auto) 10 % (24-48) Monocytes (%) (Auto) 9 % (0-9) Eosinophils (%) (Auto) 0 % (0-3) Basophils (%) (Auto) 0 % (0-3) Neutrophils # (Auto) 17.7 x10^3/uL (1.8-7.7) Lymphocytes # (Auto) 2.1 x10^3/uL (1.0-4.8) Monocytes # (Auto) 1.9 x10^3/uL (0.0-1.1) Eosinophils # (Auto) 0.1 x10^3/uL (0.0-0.7) Basophils # (Auto) 0.1 x10^3/uL (0.0-0.2) Segmented Neutrophils % 57 % (35-66) Band Neutrophils % 22 % (0-9) Lymphocytes % 9 % (24-48) Monocytes % 11 % (0-10) Eosinophils % 1 % (0-5) Platelet Estimate Adequate (ADEQUATE) Prothrombin Time 16.1 SEC (11.7-14.0) Prothromb Time International Ratio 1.3 (0.8-1.1) Sodium Level 148 mmol/L (136-145) Potassium Level 4.0 mmol/L (3.5-5.1) Chloride Level 110 mmol/L (98-107) Carbon Dioxide Level 24 mmol/L (21-32) Anion Gap 14 (6-14) Blood Urea Nitrogen 28 mg/dL (8-26) Creatinine 2.3 mg/dL (0.7-1.3) Estimated GFR (Cockcroft-Gault) 30.6 Glucose Level 157 mg/dL (70-99) Calcium Level 7.1 mg/dL (8.5-10.1) Ionized Calcium 0.92 mmol/L (1.13-1.32) Phosphorus Level 5.7 mg/dL (2.6-4.7) Magnesium Level 1.8 mg/dL (1.8-2.4) O2 Saturation 99 % (92-99) Arterial Blood pH 7.22 (7.35-7.45) Arterial Blood pH (Temp corrected) 7.24 Arterial Blood pCO2 at Patient Temp 41 mmHg (35-46) Arterial Blood pCO2 (Temp correct) 38 mmHg Arterial Blood pO2 at Patient Temp 442 mmHg (75-108) Arterial Blood pO2 (Temp corrected) 434 mmHg Arterial Blood HCO3 16 mmol/L (21-28) Arterial Blood Base Excess -11 mmol/L (-3-3) FiO2 100 Glucose (Fingerstick) 144 mg/dL (70-99) 185 mg/dL (70-99) Test 07/26/19 02:15 07/26/19 06:00 07/26/19 07:50 07/26/19 08:00 White Blood Count 23.5 x10^3/uL (4.0-11.0) 25.5 x10^3/uL (4.0-11.0) Red Blood Count 5.97 x10^6/uL (4.30-5.70) 5.87 x10^6/uL (4.30-5.70) Hemoglobin 16.4 g/dL (13.0-17.5) 16.1 g/dL (13.0-17.5) Hematocrit 51.2 % (39.0-53.0) 51.1 % (39.0-53.0) Mean Corpuscular Volume 86 fL (79-100) 87 fL (79-100) Mean Corpuscular Hemoglobin 27 pg (25-35) 27 pg (25-35) Mean Corpuscular Hemoglobin Concent 32 g/dL (31-37) 31 g/dL (31-37) Red Cell Distribution Width 14.4 % (11.5-14.5) 14.7 % (11.5-14.5) Platelet Count 197 x10^3/uL (140-400) 208 x10^3/uL (140-400) Neutrophils (%) (Auto) 82 % (31-73) 88 % (31-73) Lymphocytes (%) (Auto) 9 % (24-48) 6 % (24-48) Monocytes (%) (Auto) 8 % (0-9) 6 % (0-9) Eosinophils (%) (Auto) 0 % (0-3) 0 % (0-3) Basophils (%) (Auto) 0 % (0-3) 0 % (0-3) Neutrophils # (Auto) 19.3 x10^3/uL (1.8-7.7) 22.4 x10^3/uL (1.8-7.7) Lymphocytes # (Auto) 2.1 x10^3/uL (1.0-4.8) 1.4 x10^3/uL (1.0-4.8) Monocytes # (Auto) 1.9 x10^3/uL (0.0-1.1) 1.6 x10^3/uL (0.0-1.1) Eosinophils # (Auto) 0.0 x10^3/uL (0.0-0.7) 0.0 x10^3/uL (0.0-0.7) Basophils # (Auto) 0.0 x10^3/uL (0.0-0.2) 0.1 x10^3/uL (0.0-0.2) Prothrombin Time 17.1 SEC (11.7-14.0) Prothromb Time International Ratio 1.4 (0.8-1.1) Sodium Level 144 mmol/L (136-145) 147 mmol/L (136-145) Potassium Level 3.9 mmol/L (3.5-5.1) 3.8 mmol/L (3.5-5.1) Chloride Level 110 mmol/L (98-107) 111 mmol/L (98-107) Carbon Dioxide Level 17 mmol/L (21-32) 14 mmol/L (21-32) Anion Gap 17 (6-14) 22 (6-14) Blood Urea Nitrogen 30 mg/dL (8-26) 31 mg/dL (8-26) Creatinine 2.5 mg/dL (0.7-1.3) 2.8 mg/dL (0.7-1.3) Estimated GFR (Cockcroft-Gault) 27.8 24.4 Glucose Level 250 mg/dL (70-99) 265 mg/dL (70-99) Calcium Level 6.5 mg/dL (8.5-10.1) 6.6 mg/dL (8.5-10.1) Magnesium Level 2.2 mg/dL (1.8-2.4) 2.0 mg/dL (1.8-2.4) Alkaline Phosphatase 87 U/L (46-116) Lactic Acid Level 8.9 mmol/L (0.4-2.0) Phosphorus Level 7.6 mg/dL (2.6-4.7) Urine Collection Type Unknown Urine Color Yellow Urine Clarity Cloudy Urine pH 5.0 Urine Specific [place] >=1.030 Urine Protein 100 mg/dL (NEG-TRACE) Urine Glucose (UA) Negative mg/dL (NEG) Urine Ketones (Stick) Negative mg/dL (NEG) Urine Blood Large (NEG) Urine Nitrite Negative (NEG) Urine Bilirubin Small (NEG) Urine Urobilinogen Dipstick 1.0 mg/dL (0.2 mg/dL) Urine Leukocyte Esterase Negative (NEG) Urine RBC 3-5 /HPF (0-2) Urine WBC 5-10 /HPF (0-4) Urine Squamous Epithelial Cells Occ /LPF Urine Renal Epithelial Cells Few /LPF Urine Amorphous Sediment Present /HPF Urine Bacteria Few /HPF (0-FEW) Urine Granular Casts Few /HPF Urine Waxy Casts Occasional /HPF Urine Mucus Slight /LPF Influenza Type A Antigen Negative (NEGATIVE) Influenza Type B Antigen Negative (NEGATIVE) Test 07/26/19 08:30 07/26/19 10:00 07/26/19 10:05 07/26/19 11:12 O2 Saturation 96 % (92-99) Arterial Blood pH 7.00 (7.35-7.45) Arterial Blood pH (Temp corrected) 7.05 Arterial Blood pCO2 at Patient Temp 49 mmHg (35-46) Arterial Blood pCO2 (Temp correct) 41 mmHg Arterial Blood pO2 at Patient Temp 102 mmHg (75-108) Arterial Blood pO2 (Temp corrected) 80 mmHg Arterial Blood HCO3 12 mmol/L (21-28) Arterial Blood Base Excess -20 mmol/L (-3-3) Lactic Acid Level 9.9 mmol/L (0.4-2.0) Glucose (Fingerstick) 249 mg/dL (70-99) 266 mg/dL (70-99) Test 07/26/19 12:17 07/26/19 14:20 Glucose (Fingerstick) 199 mg/dL (70-99) White Blood Count 15.6 x10^3/uL (4.0-11.0) Red Blood Count 5.46 x10^6/uL (4.30-5.70) Hemoglobin 15.0 g/dL (13.0-17.5) Hematocrit 46.7 % (39.0-53.0) Mean Corpuscular Volume 86 fL (79-100) Mean Corpuscular Hemoglobin 28 pg (25-35) Mean Corpuscular Hemoglobin Concent 32 g/dL (31-37) Red Cell Distribution Width 14.3 % (11.5-14.5) Platelet Count 100 x10^3/uL (140-400) Neutrophils (%) (Auto) 89 % (31-73) Lymphocytes (%) (Auto) 5 % (24-48) Monocytes (%) (Auto) 6 % (0-9) Eosinophils (%) (Auto) 0 % (0-3) Basophils (%) (Auto) 0 % (0-3) Neutrophils # (Auto) 13.9 x10^3/uL (1.8-7.7) Lymphocytes # (Auto) 0.8 x10^3/uL (1.0-4.8) Monocytes # (Auto) 0.9 x10^3/uL (0.0-1.1) Eosinophils # (Auto) 0.0 x10^3/uL (0.0-0.7) Basophils # (Auto) 0.1 x10^3/uL (0.0-0.2) Sodium Level 145 mmol/L (136-145) Potassium Level 4.0 mmol/L (3.5-5.1) Chloride Level 112 mmol/L (98-107) Carbon Dioxide Level 17 mmol/L (21-32) Anion Gap 16 (6-14) Blood Urea Nitrogen 31 mg/dL (8-26) Creatinine 2.6 mg/dL (0.7-1.3) Estimated GFR (Cockcroft-Gault) 26.6 Glucose Level 211 mg/dL (70-99) Calcium Level 6.7 mg/dL (8.5-10.1) Phosphorus Level 5.0 mg/dL (2.6-4.7) Magnesium Level 2.7 mg/dL (1.8-2.4) Laboratory Tests Test 07/25/19 18:25 07/25/19 19:55 07/25/19 20:01 07/26/19 02:05 White Blood Count 21.8 x10^3/uL (4.0-11.0) Red Blood Count 5.56 x10^6/uL (4.30-5.70) Hemoglobin 15.2 g/dL (13.0-17.5) Hematocrit 47.7 % (39.0-53.0) Mean Corpuscular Volume 86 fL (79-100) Mean Corpuscular Hemoglobin 27 pg (25-35) Mean Corpuscular Hemoglobin Concent 32 g/dL (31-37) Red Cell Distribution Width 14.5 % (11.5-14.5) Platelet Count 193 x10^3/uL (140-400) Neutrophils (%) (Auto) 81 % (31-73) Lymphocytes (%) (Auto) 10 % (24-48) Monocytes (%) (Auto) 9 % (0-9) Eosinophils (%) (Auto) 0 % (0-3) Basophils (%) (Auto) 0 % (0-3) Neutrophils # (Auto) 17.7 x10^3/uL (1.8-7.7) Lymphocytes # (Auto) 2.1 x10^3/uL (1.0-4.8) Monocytes # (Auto) 1.9 x10^3/uL (0.0-1.1) Eosinophils # (Auto) 0.1 x10^3/uL (0.0-0.7) Basophils # (Auto) 0.1 x10^3/uL (0.0-0.2) Segmented Neutrophils % 57 % (35-66) Band Neutrophils % 22 % (0-9) Lymphocytes % 9 % (24-48) Monocytes % 11 % (0-10) Eosinophils % 1 % (0-5) Platelet Estimate Adequate (ADEQUATE) Prothrombin Time 16.1 SEC (11.7-14.0) Prothromb Time International Ratio 1.3 (0.8-1.1) Sodium Level 148 mmol/L (136-145) Potassium Level 4.0 mmol/L (3.5-5.1) Chloride Level 110 mmol/L (98-107) Carbon Dioxide Level 24 mmol/L (21-32) Anion Gap 14 (6-14) Blood Urea Nitrogen 28 mg/dL (8-26) Creatinine 2.3 mg/dL (0.7-1.3) Estimated GFR (Cockcroft-Gault) 30.6 Glucose Level 157 mg/dL (70-99) Calcium Level 7.1 mg/dL (8.5-10.1) Ionized Calcium 0.92 mmol/L (1.13-1.32) Phosphorus Level 5.7 mg/dL (2.6-4.7) Magnesium Level 1.8 mg/dL (1.8-2.4) O2 Saturation 99 % (92-99) Arterial Blood pH 7.22 (7.35-7.45) Arterial Blood pH (Temp corrected) 7.24 Arterial Blood pCO2 at Patient Temp 41 mmHg (35-46) Arterial Blood pCO2 (Temp correct) 38 mmHg Arterial Blood pO2 at Patient Temp 442 mmHg (75-108) Arterial Blood pO2 (Temp corrected) 434 mmHg Arterial Blood HCO3 16 mmol/L (21-28) Arterial Blood Base Excess -11 mmol/L (-3-3) FiO2 100 Glucose (Fingerstick) 144 mg/dL (70-99) 185 mg/dL (70-99) Test 07/26/19 02:15 07/26/19 06:00 07/26/19 07:50 07/26/19 08:00 White Blood Count 23.5 x10^3/uL (4.0-11.0) 25.5 x10^3/uL (4.0-11.0) Red Blood Count 5.97 x10^6/uL (4.30-5.70) 5.87 x10^6/uL (4.30-5.70) Hemoglobin 16.4 g/dL (13.0-17.5) 16.1 g/dL (13.0-17.5) Hematocrit 51.2 % (39.0-53.0) 51.1 % (39.0-53.0) Mean Corpuscular Volume 86 fL (79-100) 87 fL (79-100) Mean Corpuscular Hemoglobin 27 pg (25-35) 27 pg (25-35) Mean Corpuscular Hemoglobin Concent 32 g/dL (31-37) 31 g/dL (31-37) Red Cell Distribution Width 14.4 % (11.5-14.5) 14.7 % (11.5-14.5) Platelet Count 197 x10^3/uL (140-400) 208 x10^3/uL (140-400) Neutrophils (%) (Auto) 82 % (31-73) 88 % (31-73) Lymphocytes (%) (Auto) 9 % (24-48) 6 % (24-48) Monocytes (%) (Auto) 8 % (0-9) 6 % (0-9) Eosinophils (%) (Auto) 0 % (0-3) 0 % (0-3) Basophils (%) (Auto) 0 % (0-3) 0 % (0-3) Neutrophils # (Auto) 19.3 x10^3/uL (1.8-7.7) 22.4 x10^3/uL (1.8-7.7) Lymphocytes # (Auto) 2.1 x10^3/uL (1.0-4.8) 1.4 x10^3/uL (1.0-4.8) Monocytes # (Auto) 1.9 x10^3/uL (0.0-1.1) 1.6 x10^3/uL (0.0-1.1) Eosinophils # (Auto) 0.0 x10^3/uL (0.0-0.7) 0.0 x10^3/uL (0.0-0.7) Basophils # (Auto) 0.0 x10^3/uL (0.0-0.2) 0.1 x10^3/uL (0.0-0.2) Prothrombin Time 17.1 SEC (11.7-14.0) Prothromb Time International Ratio 1.4 (0.8-1.1) Sodium Level 144 mmol/L (136-145) 147 mmol/L (136-145) Potassium Level 3.9 mmol/L (3.5-5.1) 3.8 mmol/L (3.5-5.1) Chloride Level 110 mmol/L (98-107) 111 mmol/L (98-107) Carbon Dioxide Level 17 mmol/L (21-32) 14 mmol/L (21-32) Anion Gap 17 (6-14) 22 (6-14) Blood Urea Nitrogen 30 mg/dL (8-26) 31 mg/dL (8-26) Creatinine 2.5 mg/dL (0.7-1.3) 2.8 mg/dL (0.7-1.3) Estimated GFR (Cockcroft-Gault) 27.8 24.4 Glucose Level 250 mg/dL (70-99) 265 mg/dL (70-99) Calcium Level 6.5 mg/dL (8.5-10.1) 6.6 mg/dL (8.5-10.1) Magnesium Level 2.2 mg/dL (1.8-2.4) 2.0 mg/dL (1.8-2.4) Alkaline Phosphatase 87 U/L (46-116) Lactic Acid Level 8.9 mmol/L (0.4-2.0) Phosphorus Level 7.6 mg/dL (2.6-4.7) Urine Collection Type Unknown Urine Color Yellow Urine Clarity Cloudy Urine pH 5.0 Urine Specific [place] >=1.030 Urine Protein 100 mg/dL (NEG-TRACE) Urine Glucose (UA) Negative mg/dL (NEG) Urine Ketones (Stick) Negative mg/dL (NEG) Urine Blood Large (NEG) Urine Nitrite Negative (NEG) Urine Bilirubin Small (NEG) Urine Urobilinogen Dipstick 1.0 mg/dL (0.2 mg/dL) Urine Leukocyte Esterase Negative (NEG) Urine RBC 3-5 /HPF (0-2) Urine WBC 5-10 /HPF (0-4) Urine Squamous Epithelial Cells Occ /LPF Urine Renal Epithelial Cells Few /LPF Urine Amorphous Sediment Present /HPF Urine Bacteria Few /HPF (0-FEW) Urine Granular Casts Few /HPF Urine Waxy Casts Occasional /HPF Urine Mucus Slight /LPF Influenza Type A Antigen Negative (NEGATIVE) Influenza Type B Antigen Negative (NEGATIVE) Test 07/26/19 08:30 07/26/19 10:00 07/26/19 10:05 07/26/19 11:12 O2 Saturation 96 % (92-99) Arterial Blood pH 7.00 (7.35-7.45) Arterial Blood pH (Temp corrected) 7.05 Arterial Blood pCO2 at Patient Temp 49 mmHg (35-46) Arterial Blood pCO2 (Temp correct) 41 mmHg Arterial Blood pO2 at Patient Temp 102 mmHg (75-108) Arterial Blood pO2 (Temp corrected) 80 mmHg Arterial Blood HCO3 12 mmol/L (21-28) Arterial Blood Base Excess -20 mmol/L (-3-3) Lactic Acid Level 9.9 mmol/L (0.4-2.0) Glucose (Fingerstick) 249 mg/dL (70-99) 266 mg/dL (70-99) Test 07/26/19 12:17 07/26/19 14:20 Glucose (Fingerstick) 199 mg/dL (70-99) White Blood Count 15.6 x10^3/uL (4.0-11.0) Red Blood Count 5.46 x10^6/uL (4.30-5.70) Hemoglobin 15.0 g/dL (13.0-17.5) Hematocrit 46.7 % (39.0-53.0) Mean Corpuscular Volume 86 fL (79-100) Mean Corpuscular Hemoglobin 28 pg (25-35) Mean Corpuscular Hemoglobin Concent 32 g/dL (31-37) Red Cell Distribution Width 14.3 % (11.5-14.5) Platelet Count 100 x10^3/uL (140-400) Neutrophils (%) (Auto) 89 % (31-73) Lymphocytes (%) (Auto) 5 % (24-48) Monocytes (%) (Auto) 6 % (0-9) Eosinophils (%) (Auto) 0 % (0-3) Basophils (%) (Auto) 0 % (0-3) Neutrophils # (Auto) 13.9 x10^3/uL (1.8-7.7) Lymphocytes # (Auto) 0.8 x10^3/uL (1.0-4.8) Monocytes # (Auto) 0.9 x10^3/uL (0.0-1.1) Eosinophils # (Auto) 0.0 x10^3/uL (0.0-0.7) Basophils # (Auto) 0.1 x10^3/uL (0.0-0.2) Sodium Level 145 mmol/L (136-145) Potassium Level 4.0 mmol/L (3.5-5.1) Chloride Level 112 mmol/L (98-107) Carbon Dioxide Level 17 mmol/L (21-32) Anion Gap 16 (6-14) Blood Urea Nitrogen 31 mg/dL (8-26) Creatinine 2.6 mg/dL (0.7-1.3) Estimated GFR (Cockcroft-Gault) 26.6 Glucose Level 211 mg/dL (70-99) Calcium Level 6.7 mg/dL (8.5-10.1) Phosphorus Level 5.0 mg/dL (2.6-4.7) Magnesium Level 2.7 mg/dL (1.8-2.4) BRITTANI TY MD Jul 26, 2019 15:10
[2019-07-26] MEDS: MIDAZOLAM 100mg/100ml NS BAG 100 ML IV PRN (15:44)
[2019-07-26 20:18] LABS: BASE EXCESS ABG -6 mmol/L (-3-3); CORRECTED PCO2 ABG 35 mmHg; CORRECTED PH ABG 7.36; CORRECTED PO2 ABG 53 mmHg; HCO3 ABG 20 mmol/L (21-28); PCO2 ABG 42 mmHg (35-46); PO2 ABG 70 mmHg (75-108); SAT O2 ABG 94 % (92-99)
[2019-07-26 20:22] LABS: FIO2 ABG 40
[2019-07-26] MEDS: AMIODARONE 450 MG in IV DEXTROSE 5% 250 ML IV PRN (23:03)
[2019-07-27] VITALS (24 sets, daily range): BP systolic 90–154; BP diastolic 54–98
[2019-07-27] MEDS: SODIUM BICARBONATE VIAL 150 MEQ in IV DEXTROSE 5% 1,000 ML IV SCH ×3 (00:08→19:20)
[2019-07-27] MEDS ORDERED: DEXTROSE 50% 25 GM / 50ML DISP.SYRIN. IV ONE (01:15)
[2019-07-27] MEDS: POLYVINYL ALCOHOL 1.4% OPHTH SOLUTION 15ML BOTTLE. OU SCH ×4 (03:37→23:37)
[2019-07-27 05:43] LABS: BASO % 0 % (0-3); EOS % 0 % (0-3); HEMATOCRIT 40.2 % (39.0-53.0); HEMOGLOBIN 13.5 g/dL (13.0-17.5); LYMPH # 0.9 x10^3/uL (1.0-4.8); LYMPH % 7 % (24-48); MEAN CORPUSCULAR HEMOGLOBIN 28 pg (25-35); MEAN CORPUSCULAR HGB CONC 34 g/dL (31-37); MEAN CORPUSCULAR VOLUME 83 fL (79-100); MONO # 0.7 x10^3/uL (0.0-1.1); MONO % 6 % (0-9); NEUT # 9.9 x10^3/uL (1.8-7.7); NEUT % 86 % (31-73); PLATELET COUNT 96 x10^3/uL (140-400); RED BLOOD COUNT 4.87 x10^6/uL (4.30-5.70); RED CELL DISTRIBUTION WIDTH 14.1 % (11.5-14.5); WHITE BLOOD COUNT 11.5 x10^3/uL (4.0-11.0)
[2019-07-27 05:47] LABS: PROTHROMBIN TIME PATIENT 18.5 SEC (11.7-14.0)
[2019-07-27 05:57] LABS: ALBUMIN 2.2 g/dL (3.4-5.0); ALBUMIN/GLOBULIN RATIO 0.7 (1.0-1.7); CALCIUM 6.7 mg/dL (8.5-10.1); CREATININE 2.5 mg/dL (0.7-1.3); GFR 27.8; POTASSIUM 3.4 mmol/L (3.5-5.1); TOTAL BILIRUBIN 0.4 mg/dL (0.2-1.0); TOTAL PROTEIN 5.2 g/dL (6.4-8.2)
--- NOTE | 2019-07-27 05:57 | RAD ---
Indication:Respiratory failure. TECHNIQUE:Portable AP chest X-ray COMPARISON: 07/26/2019 FINDINGS: Patient is rotated to the left side limiting optimal evaluation. Heart is moderately enlarged in size. Stable position of ET tube and NG tube. Interstitial opacities bilaterally. No pneumothorax or large pleural effusion. Visualized bony thorax within normal limits. IMPRESSION: Suboptimal positioning limiting optimal evaluation. Stable moderate cardiomegaly. Interstitial edema. Electronically signed by: Tad Walls DO (07/27/2019 5:54 AM) [id number]
[2019-07-27] MEDS: cefTRIAXone IV Push 1 GM VIAL. IVP SCH (06:16)
--- NOTE | 2019-07-27 06:26 | PDOC ---
PULMONARY PROGRESS NOTES Subjective on vent, warm now, on dobutamine, versed, fentanyl, small ett secretion Vitals Vital Signs Date Time Temp Pulse Resp B/P (MAP) Pulse Ox O2 Delivery O2 Flow Rate FiO2 07/27/19 06:00 97.0 74 18 110/61 (77) 100 Ventilator 97.0 Comments ros as mentioned as above discussed w rn other sys otherwise neg on vent no response HEENT: Other (nc at pupils are no responsive neck no lad no thyromegaly) Lungs: Crackles, Other (dull at bases) Cardiovascular: S1, S2 Abdomen: Soft, Non-tender, Other (no mass) Extremities: Other (edema) Skin: Warm Labs Laboratory Tests Test 07/25/19 18:25 07/25/19 19:55 07/25/19 20:01 07/26/19 02:05 White Blood Count 21.8 x10^3/uL (4.0-11.0) Red Blood Count 5.56 x10^6/uL (4.30-5.70) Hemoglobin 15.2 g/dL (13.0-17.5) Hematocrit 47.7 % (39.0-53.0) Mean Corpuscular Volume 86 fL (79-100) Mean Corpuscular Hemoglobin 27 pg (25-35) Mean Corpuscular Hemoglobin Concent 32 g/dL (31-37) Red Cell Distribution Width 14.5 % (11.5-14.5) Platelet Count 193 x10^3/uL (140-400) Neutrophils (%) (Auto) 81 % (31-73) Lymphocytes (%) (Auto) 10 % (24-48) Monocytes (%) (Auto) 9 % (0-9) Eosinophils (%) (Auto) 0 % (0-3) Basophils (%) (Auto) 0 % (0-3) Neutrophils # (Auto) 17.7 x10^3/uL (1.8-7.7) Lymphocytes # (Auto) 2.1 x10^3/uL (1.0-4.8) Monocytes # (Auto) 1.9 x10^3/uL (0.0-1.1) Eosinophils # (Auto) 0.1 x10^3/uL (0.0-0.7) Basophils # (Auto) 0.1 x10^3/uL (0.0-0.2) Segmented Neutrophils % 57 % (35-66) Band Neutrophils % 22 % (0-9) Lymphocytes % 9 % (24-48) Monocytes % 11 % (0-10) Eosinophils % 1 % (0-5) Platelet Estimate Adequate (ADEQUATE) Prothrombin Time 16.1 SEC (11.7-14.0) Prothromb Time International Ratio 1.3 (0.8-1.1) Sodium Level 148 mmol/L (136-145) Potassium Level 4.0 mmol/L (3.5-5.1) Chloride Level 110 mmol/L (98-107) Carbon Dioxide Level 24 mmol/L (21-32) Anion Gap 14 (6-14) Blood Urea Nitrogen 28 mg/dL (8-26) Creatinine 2.3 mg/dL (0.7-1.3) Estimated GFR (Cockcroft-Gault) 30.6 Glucose Level 157 mg/dL (70-99) Calcium Level 7.1 mg/dL (8.5-10.1) Ionized Calcium 0.92 mmol/L (1.13-1.32) Phosphorus Level 5.7 mg/dL (2.6-4.7) Magnesium Level 1.8 mg/dL (1.8-2.4) O2 Saturation 99 % (92-99) Arterial Blood pH 7.22 (7.35-7.45) Arterial Blood pH (Temp corrected) 7.24 Arterial Blood pCO2 at Patient Temp 41 mmHg (35-46) Arterial Blood pCO2 (Temp correct) 38 mmHg Arterial Blood pO2 at Patient Temp 442 mmHg (75-108) Arterial Blood pO2 (Temp corrected) 434 mmHg Arterial Blood HCO3 16 mmol/L (21-28) Arterial Blood Base Excess -11 mmol/L (-3-3) FiO2 100 Glucose (Fingerstick) 144 mg/dL (70-99) 185 mg/dL (70-99) Test 07/26/19 02:15 07/26/19 06:00 07/26/19 07:50 07/26/19 08:00 White Blood Count 23.5 x10^3/uL (4.0-11.0) 25.5 x10^3/uL (4.0-11.0) Red Blood Count 5.97 x10^6/uL (4.30-5.70) 5.87 x10^6/uL (4.30-5.70) Hemoglobin 16.4 g/dL (13.0-17.5) 16.1 g/dL (13.0-17.5) Hematocrit 51.2 % (39.0-53.0) 51.1 % (39.0-53.0) Mean Corpuscular Volume 86 fL (79-100) 87 fL (79-100) Mean Corpuscular Hemoglobin 27 pg (25-35) 27 pg (25-35) Mean Corpuscular Hemoglobin Concent 32 g/dL (31-37) 31 g/dL (31-37) Red Cell Distribution Width 14.4 % (11.5-14.5) 14.7 % (11.5-14.5) Platelet Count 197 x10^3/uL (140-400) 208 x10^3/uL (140-400) Neutrophils (%) (Auto) 82 % (31-73) 88 % (31-73) Lymphocytes (%) (Auto) 9 % (24-48) 6 % (24-48) Monocytes (%) (Auto) 8 % (0-9) 6 % (0-9) Eosinophils (%) (Auto) 0 % (0-3) 0 % (0-3) Basophils (%) (Auto) 0 % (0-3) 0 % (0-3) Neutrophils # (Auto) 19.3 x10^3/uL (1.8-7.7) 22.4 x10^3/uL (1.8-7.7) Lymphocytes # (Auto) 2.1 x10^3/uL (1.0-4.8) 1.4 x10^3/uL (1.0-4.8) Monocytes # (Auto) 1.9 x10^3/uL (0.0-1.1) 1.6 x10^3/uL (0.0-1.1) Eosinophils # (Auto) 0.0 x10^3/uL (0.0-0.7) 0.0 x10^3/uL (0.0-0.7) Basophils # (Auto) 0.0 x10^3/uL (0.0-0.2) 0.1 x10^3/uL (0.0-0.2) Prothrombin Time 17.1 SEC (11.7-14.0) Prothromb Time International Ratio 1.4 (0.8-1.1) Sodium Level 144 mmol/L (136-145) 147 mmol/L (136-145) Potassium Level 3.9 mmol/L (3.5-5.1) 3.8 mmol/L (3.5-5.1) Chloride Level 110 mmol/L (98-107) 111 mmol/L (98-107) Carbon Dioxide Level 17 mmol/L (21-32) 14 mmol/L (21-32) Anion Gap 17 (6-14) 22 (6-14) Blood Urea Nitrogen 30 mg/dL (8-26) 31 mg/dL (8-26) Creatinine 2.5 mg/dL (0.7-1.3) 2.8 mg/dL (0.7-1.3) Estimated GFR (Cockcroft-Gault) 27.8 24.4 Glucose Level 250 mg/dL (70-99) 265 mg/dL (70-99) Calcium Level 6.5 mg/dL (8.5-10.1) 6.6 mg/dL (8.5-10.1) Magnesium Level 2.2 mg/dL (1.8-2.4) 2.0 mg/dL (1.8-2.4) Alkaline Phosphatase 87 U/L (46-116) Lactic Acid Level 8.9 mmol/L (0.4-2.0) Phosphorus Level 7.6 mg/dL (2.6-4.7) Urine Collection Type Unknown Urine Color Yellow Urine Clarity Cloudy Urine pH 5.0 Urine Specific [place] >=1.030 Urine Protein 100 mg/dL (NEG-TRACE) Urine Glucose (UA) Negative mg/dL (NEG) Urine Ketones (Stick) Negative mg/dL (NEG) Urine Blood Large (NEG) Urine Nitrite Negative (NEG) Urine Bilirubin Small (NEG) Urine Urobilinogen Dipstick 1.0 mg/dL (0.2 mg/dL) Urine Leukocyte Esterase Negative (NEG) Urine RBC 3-5 /HPF (0-2) Urine WBC 5-10 /HPF (0-4) Urine Squamous Epithelial Cells Occ /LPF Urine Renal Epithelial Cells Few /LPF Urine Amorphous Sediment Present /HPF Urine Bacteria Few /HPF (0-FEW) Urine Granular Casts Few /HPF Urine Waxy Casts Occasional /HPF Urine Mucus Slight /LPF Influenza Type A Antigen Negative (NEGATIVE) Influenza Type B Antigen Negative (NEGATIVE) Test 07/26/19 08:30 07/26/19 10:00 07/26/19 10:05 07/26/19 11:12 O2 Saturation 96 % (92-99) Arterial Blood pH 7.00 (7.35-7.45) Arterial Blood pH (Temp corrected) 7.05 Arterial Blood pCO2 at Patient Temp 49 mmHg (35-46) Arterial Blood pCO2 (Temp correct) 41 mmHg Arterial Blood pO2 at Patient Temp 102 mmHg (75-108) Arterial Blood pO2 (Temp corrected) 80 mmHg Arterial Blood HCO3 12 mmol/L (21-28) Arterial Blood Base Excess -20 mmol/L (-3-3) Lactic Acid Level 9.9 mmol/L (0.4-2.0) Glucose (Fingerstick) 249 mg/dL (70-99) 266 mg/dL (70-99) Test 07/26/19 12:17 07/26/19 13:31 07/26/19 14:20 07/26/19 14:21 Glucose (Fingerstick) 199 mg/dL (70-99) 185 mg/dL (70-99) 192 mg/dL (70-99) White Blood Count 15.6 x10^3/uL (4.0-11.0) Red Blood Count 5.46 x10^6/uL (4.30-5.70) Hemoglobin 15.0 g/dL (13.0-17.5) Hematocrit 46.7 % (39.0-53.0) Mean Corpuscular Volume 86 fL (79-100) Mean Corpuscular Hemoglobin 28 pg (25-35) Mean Corpuscular Hemoglobin Concent 32 g/dL (31-37) Red Cell Distribution Width 14.3 % (11.5-14.5) Platelet Count 100 x10^3/uL (140-400) Neutrophils (%) (Auto) 89 % (31-73) Lymphocytes (%) (Auto) 5 % (24-48) Monocytes (%) (Auto) 6 % (0-9) Eosinophils (%) (Auto) 0 % (0-3) Basophils (%) (Auto) 0 % (0-3) Neutrophils # (Auto) 13.9 x10^3/uL (1.8-7.7) Lymphocytes # (Auto) 0.8 x10^3/uL (1.0-4.8) Monocytes # (Auto) 0.9 x10^3/uL (0.0-1.1) Eosinophils # (Auto) 0.0 x10^3/uL (0.0-0.7) Basophils # (Auto) 0.1 x10^3/uL (0.0-0.2) Prothrombin Time 17.4 SEC (11.7-14.0) Prothromb Time International Ratio 1.5 (0.8-1.1) Activated Partial Thromboplast Time 36 SEC (24-38) Sodium Level 145 mmol/L (136-145) Potassium Level 4.0 mmol/L (3.5-5.1) Chloride Level 112 mmol/L (98-107) Carbon Dioxide Level 17 mmol/L (21-32) Anion Gap 16 (6-14) Blood Urea Nitrogen 31 mg/dL (8-26) Creatinine 2.6 mg/dL (0.7-1.3) Estimated GFR (Cockcroft-Gault) 26.6 Glucose Level 211 mg/dL (70-99) Calcium Level 6.7 mg/dL (8.5-10.1) Phosphorus Level 5.0 mg/dL (2.6-4.7) Magnesium Level 2.7 mg/dL (1.8-2.4) Creatine Kinase 1095 U/L (39-308) Test 07/26/19 15:43 07/26/19 17:08 07/26/19 18:03 07/26/19 19:08 Glucose (Fingerstick) 172 mg/dL (70-99) 166 mg/dL (70-99) 153 mg/dL (70-99) 141 mg/dL (70-99) Test 07/26/19 20:12 07/26/19 20:16 07/26/19 21:19 07/26/19 22:21 O2 Saturation 94 % (92-99) Arterial Blood pH 7.30 (7.35-7.45) Arterial Blood pH (Temp corrected) 7.36 Arterial Blood pCO2 at Patient Temp 42 mmHg (35-46) Arterial Blood pCO2 (Temp correct) 35 mmHg Arterial Blood pO2 at Patient Temp 70 mmHg (75-108) Arterial Blood pO2 (Temp corrected) 53 mmHg Arterial Blood HCO3 20 mmol/L (21-28) Arterial Blood Base Excess -6 mmol/L (-3-3) FiO2 40 Glucose (Fingerstick) 137 mg/dL (70-99) 123 mg/dL (70-99) 122 mg/dL (70-99) Test 07/26/19 23:26 07/27/19 01:03 07/27/19 01:54 07/27/19 03:00 Glucose (Fingerstick) 76 mg/dL (70-99) 57 mg/dL (70-99) 194 mg/dL (70-99) 150 mg/dL (70-99) Test 07/27/19 05:26 07/27/19 05:30 Glucose (Fingerstick) 121 mg/dL (70-99) White Blood Count 11.5 x10^3/uL (4.0-11.0) Red Blood Count 4.87 x10^6/uL (4.30-5.70) Hemoglobin 13.5 g/dL (13.0-17.5) Hematocrit 40.2 % (39.0-53.0) Mean Corpuscular Volume 83 fL (79-100) Mean Corpuscular Hemoglobin 28 pg (25-35) Mean Corpuscular Hemoglobin Concent 34 g/dL (31-37) Red Cell Distribution Width 14.1 % (11.5-14.5) Platelet Count 96 x10^3/uL (140-400) Neutrophils (%) (Auto) 86 % (31-73) Lymphocytes (%) (Auto) 7 % (24-48) Monocytes (%) (Auto) 6 % (0-9) Eosinophils (%) (Auto) 0 % (0-3) Basophils (%) (Auto) 0 % (0-3) Neutrophils # (Auto) 9.9 x10^3/uL (1.8-7.7) Lymphocytes # (Auto) 0.9 x10^3/uL (1.0-4.8) Monocytes # (Auto) 0.7 x10^3/uL (0.0-1.1) Eosinophils # (Auto) 0.0 x10^3/uL (0.0-0.7) Basophils # (Auto) 0.0 x10^3/uL (0.0-0.2) Prothrombin Time 18.5 SEC (11.7-14.0) Prothromb Time International Ratio 1.6 (0.8-1.1) Sodium Level 145 mmol/L (136-145) Potassium Level 3.4 mmol/L (3.5-5.1) Chloride Level 110 mmol/L (98-107) Carbon Dioxide Level 27 mmol/L (21-32) Anion Gap 8 (6-14) Blood Urea Nitrogen 29 mg/dL (8-26) Creatinine 2.5 mg/dL (0.7-1.3) Estimated GFR (Cockcroft-Gault) 27.8 BUN/Creatinine Ratio 12 (6-20) Glucose Level 138 mg/dL (70-99) Calcium Level 6.7 mg/dL (8.5-10.1) Total Bilirubin 0.4 mg/dL (0.2-1.0) Aspartate Amino Transf (AST/SGOT) 170 U/L (15-37) Alanine Aminotransferase (ALT/SGPT) 228 U/L (16-63) Alkaline Phosphatase 64 U/L (46-116) Total Protein 5.2 g/dL (6.4-8.2) Albumin 2.2 g/dL (3.4-5.0) Albumin/Globulin Ratio 0.7 (1.0-1.7) Laboratory Tests Test 07/26/19 07:50 07/26/19 08:00 07/26/19 08:30 07/26/19 10:00 White Blood Count 25.5 x10^3/uL (4.0-11.0) Red Blood Count 5.87 x10^6/uL (4.30-5.70) Hemoglobin 16.1 g/dL (13.0-17.5) Hematocrit 51.1 % (39.0-53.0) Mean Corpuscular Volume 87 fL (79-100) Mean Corpuscular Hemoglobin 27 pg (25-35) Mean Corpuscular Hemoglobin Concent 31 g/dL (31-37) Red Cell Distribution Width 14.7 % (11.5-14.5) Platelet Count 208 x10^3/uL (140-400) Neutrophils (%) (Auto) 88 % (31-73) Lymphocytes (%) (Auto) 6 % (24-48) Monocytes (%) (Auto) 6 % (0-9) Eosinophils (%) (Auto) 0 % (0-3) Basophils (%) (Auto) 0 % (0-3) Neutrophils # (Auto) 22.4 x10^3/uL (1.8-7.7) Lymphocytes # (Auto) 1.4 x10^3/uL (1.0-4.8) Monocytes # (Auto) 1.6 x10^3/uL (0.0-1.1) Eosinophils # (Auto) 0.0 x10^3/uL (0.0-0.7) Basophils # (Auto) 0.1 x10^3/uL (0.0-0.2) Sodium Level 147 mmol/L (136-145) Potassium Level 3.8 mmol/L (3.5-5.1) Chloride Level 111 mmol/L (98-107) Carbon Dioxide Level 14 mmol/L (21-32) Anion Gap 22 (6-14) Blood Urea Nitrogen 31 mg/dL (8-26) Creatinine 2.8 mg/dL (0.7-1.3) Estimated GFR (Cockcroft-Gault) 24.4 Glucose Level 265 mg/dL (70-99) Calcium Level 6.6 mg/dL (8.5-10.1) Phosphorus Level 7.6 mg/dL (2.6-4.7) Magnesium Level 2.0 mg/dL (1.8-2.4) Urine Collection Type Unknown Urine Color Yellow Urine Clarity Cloudy Urine pH 5.0 Urine Specific [place] >=1.030 Urine Protein 100 mg/dL (NEG-TRACE) Urine Glucose (UA) Negative mg/dL (NEG) Urine Ketones (Stick) Negative mg/dL (NEG) Urine Blood Large (NEG) Urine Nitrite Negative (NEG) Urine Bilirubin Small (NEG) Urine Urobilinogen Dipstick 1.0 mg/dL (0.2 mg/dL) Urine Leukocyte Esterase Negative (NEG) Urine RBC 3-5 /HPF (0-2) Urine WBC 5-10 /HPF (0-4) Urine Squamous Epithelial Cells Occ /LPF Urine Renal Epithelial Cells Few /LPF Urine Amorphous Sediment Present /HPF Urine Bacteria Few /HPF (0-FEW) Urine Granular Casts Few /HPF Urine Waxy Casts Occasional /HPF Urine Mucus Slight /LPF Influenza Type A Antigen Negative (NEGATIVE) Influenza Type B Antigen Negative (NEGATIVE) O2 Saturation 96 % (92-99) Arterial Blood pH 7.00 (7.35-7.45) Arterial Blood pH (Temp corrected) 7.05 Arterial Blood pCO2 at Patient Temp 49 mmHg (35-46) Arterial Blood pCO2 (Temp correct) 41 mmHg Arterial Blood pO2 at Patient Temp 102 mmHg (75-108) Arterial Blood pO2 (Temp corrected) 80 mmHg Arterial Blood HCO3 12 mmol/L (21-28) Arterial Blood Base Excess -20 mmol/L (-3-3) Lactic Acid Level 9.9 mmol/L (0.4-2.0) Test 07/26/19 10:05 07/26/19 11:12 07/26/19 12:17 07/26/19 13:31 Glucose (Fingerstick) 249 mg/dL (70-99) 266 mg/dL (70-99) 199 mg/dL (70-99) 185 mg/dL (70-99) Test 07/26/19 14:20 07/26/19 14:21 07/26/19 15:43 07/26/19 17:08 White Blood Count 15.6 x10^3/uL (4.0-11.0) Red Blood Count 5.46 x10^6/uL (4.30-5.70) Hemoglobin 15.0 g/dL (13.0-17.5) Hematocrit 46.7 % (39.0-53.0) Mean Corpuscular Volume 86 fL (79-100) Mean Corpuscular Hemoglobin 28 pg (25-35) Mean Corpuscular Hemoglobin Concent 32 g/dL (31-37) Red Cell Distribution Width 14.3 % (11.5-14.5) Platelet Count 100 x10^3/uL (140-400) Neutrophils (%) (Auto) 89 % (31-73) Lymphocytes (%) (Auto) 5 % (24-48) Monocytes (%) (Auto) 6 % (0-9) Eosinophils (%) (Auto) 0 % (0-3) Basophils (%) (Auto) 0 % (0-3) Neutrophils # (Auto) 13.9 x10^3/uL (1.8-7.7) Lymphocytes # (Auto) 0.8 x10^3/uL (1.0-4.8) Monocytes # (Auto) 0.9 x10^3/uL (0.0-1.1) Eosinophils # (Auto) 0.0 x10^3/uL (0.0-0.7) Basophils # (Auto) 0.1 x10^3/uL (0.0-0.2) Prothrombin Time 17.4 SEC (11.7-14.0) Prothromb Time International Ratio 1.5 (0.8-1.1) Activated Partial Thromboplast Time 36 SEC (24-38) Sodium Level 145 mmol/L (136-145) Potassium Level 4.0 mmol/L (3.5-5.1) Chloride Level 112 mmol/L (98-107) Carbon Dioxide Level 17 mmol/L (21-32) Anion Gap 16 (6-14) Blood Urea Nitrogen 31 mg/dL (8-26) Creatinine 2.6 mg/dL (0.7-1.3) Estimated GFR (Cockcroft-Gault) 26.6 Glucose Level 211 mg/dL (70-99) Calcium Level 6.7 mg/dL (8.5-10.1) Phosphorus Level 5.0 mg/dL (2.6-4.7) Magnesium Level 2.7 mg/dL (1.8-2.4) Creatine Kinase 1095 U/L (39-308) Glucose (Fingerstick) 192 mg/dL (70-99) 172 mg/dL (70-99) 166 mg/dL (70-99) Test 07/26/19 18:03 07/26/19 19:08 07/26/19 20:12 07/26/19 20:16 Glucose (Fingerstick) 153 mg/dL (70-99) 141 mg/dL (70-99) 137 mg/dL (70-99) O2 Saturation 94 % (92-99) Arterial Blood pH 7.30 (7.35-7.45) Arterial Blood pH (Temp corrected) 7.36 Arterial Blood pCO2 at Patient Temp 42 mmHg (35-46) Arterial Blood pCO2 (Temp correct) 35 mmHg Arterial Blood pO2 at Patient Temp 70 mmHg (75-108) Arterial Blood pO2 (Temp corrected) 53 mmHg Arterial Blood HCO3 20 mmol/L (21-28) Arterial Blood Base Excess -6 mmol/L (-3-3) FiO2 40 Test 07/26/19 21:19 07/26/19 22:21 07/26/19 23:26 07/27/19 01:03 Glucose (Fingerstick) 123 mg/dL (70-99) 122 mg/dL (70-99) 76 mg/dL (70-99) 57 mg/dL (70-99) Test 07/27/19 01:54 07/27/19 03:00 07/27/19 05:26 07/27/19 05:30 Glucose (Fingerstick) 194 mg/dL (70-99) 150 mg/dL (70-99) 121 mg/dL (70-99) White Blood Count 11.5 x10^3/uL (4.0-11.0) Red Blood Count 4.87 x10^6/uL (4.30-5.70) Hemoglobin 13.5 g/dL (13.0-17.5) Hematocrit 40.2 % (39.0-53.0) Mean Corpuscular Volume 83 fL (79-100) Mean Corpuscular Hemoglobin 28 pg (25-35) Mean Corpuscular Hemoglobin Concent 34 g/dL (31-37) Red Cell Distribution Width 14.1 % (11.5-14.5) Platelet Count 96 x10^3/uL (140-400) Neutrophils (%) (Auto) 86 % (31-73) Lymphocytes (%) (Auto) 7 % (24-48) Monocytes (%) (Auto) 6 % (0-9) Eosinophils (%) (Auto) 0 % (0-3) Basophils (%) (Auto) 0 % (0-3) Neutrophils # (Auto) 9.9 x10^3/uL (1.8-7.7) Lymphocytes # (Auto) 0.9 x10^3/uL (1.0-4.8) Monocytes # (Auto) 0.7 x10^3/uL (0.0-1.1) Eosinophils # (Auto) 0.0 x10^3/uL (0.0-0.7) Basophils # (Auto) 0.0 x10^3/uL (0.0-0.2) Prothrombin Time 18.5 SEC (11.7-14.0) Prothromb Time International Ratio 1.6 (0.8-1.1) Sodium Level 145 mmol/L (136-145) Potassium Level 3.4 mmol/L (3.5-5.1) Chloride Level 110 mmol/L (98-107) Carbon Dioxide Level 27 mmol/L (21-32) Anion Gap 8 (6-14) Blood Urea Nitrogen 29 mg/dL (8-26) Creatinine 2.5 mg/dL (0.7-1.3) Estimated GFR (Cockcroft-Gault) 27.8 BUN/Creatinine Ratio 12 (6-20) Glucose Level 138 mg/dL (70-99) Calcium Level 6.7 mg/dL (8.5-10.1) Total Bilirubin 0.4 mg/dL (0.2-1.0) Aspartate Amino Transf (AST/SGOT) 170 U/L (15-37) Alanine Aminotransferase (ALT/SGPT) 228 U/L (16-63) Alkaline Phosphatase 64 U/L (46-116) Total Protein 5.2 g/dL (6.4-8.2) Albumin 2.2 g/dL (3.4-5.0) Albumin/Globulin Ratio 0.7 (1.0-1.7) Comments cxr reviewed, b lat infilt effusion cardiomegaly ett ok Impression . IMPRESSION: 1. Acute respiratory failure secondary to cardiopulmonary arrest, ? sepsis versus others. 2. Status post cardiopulmonary arrest, due to arrhythmia, has nicm 3. Abnormal CT of the chest. 4. Acute kidney injury. 5. Hypotension, septic shock versus cardiogenic shock versus others. 6. Lactic acidosis. 7. anoxic encephalopathy 8. tcp Plan . PLAN AND RECOMMENDATIONS: 1. Titrate FiO2 to keep O2 saturation 94%. 2. Continue ventilator support. I will do an ABG. Change vent setting per ABG. 3. chest x-ray reviewed. 4. follow culture results. 5. Continue antibiotic, id broaden the abx coverage. 6. has tcp, will stop Heparin for DVT prophylaxis. 7. s/p hypothermia protocol. 8. Protonix for stress ulcer prophylaxis. 9. Follow Cardiology recommendations. He would require an echocardiogram. 10. Nasal swab for influenza A and B. neg 11. Legionella and Strep pneumoniae antigen, pending. 12. Monitor kidney function tests. Nephrology consulted The findings and recommendations were discussed with RN. MICK VELÁZQUEZ MD Jul 27, 2019 06:25
--- NOTE | 2019-07-27 08:32 | PDOC ---
Provider Note Provider Note Pt seen and examined [id number] D/W RN Thank you TOO CEVALLOS MD Jul 27, 2019 08:32
--- NOTE | 2019-07-27 08:51 | PDOC ---
CARDIOLOGY PROGRESS NOTE SUBJECTIVE: I had a long discussion with the patient's preacher on the phone helping to translate about the issues. We discussed neurologic status and cardiac status. I impressed upon them how sick he is. No neuro function per nursing bedside eval OBJECTIVE: Vital Signs/I&O: Vital Signs Date Time Temp Pulse Resp B/P (MAP) Pulse Ox O2 Delivery O2 Flow Rate FiO2 07/27/19 06:00 97.0 74 18 110/61 (77) 100 Ventilator 97.0 I & O 07/26/19 07/26/19 07/27/19 15:02 23:02 07:02 Intake Total 150 ml 4758 ml 2132 ml Output Total 410 ml 420 ml 300 ml Balance -260 ml 4338 ml 1832 ml Objective: Off sedation. No neuro responses. No gag, no cough. No pupils. Normal heart tones. Occ PVc's. 1+ edema (anasarca) DIAGNOSTIC TESTING: K 3.4 ASSESSMENT: 1. Cardiac arrest - etiology likely arrhythmogenic given history of NICM PLAN: 1. I discussed with family that if he does not have any neurologic recovery, further cardiac eval/tx would be futile. 2. Will await evaluation by neurology service. Supportive care. Off pressors now. Valorie repleted. OMAIRA ALFONSO MD Jul 27, 2019 08:51
[2019-07-27] MEDS ORDERED: POTASSIUM BICARB 20 MEQ EFFERVESCENT TABLET. PEG ONE ×2 (09:00→11:00)
[2019-07-27] MEDS: MEROPENEM 500 MG in IV NORMAL SALINE 50ML 50 ML IV SCH ×2 (09:08→20:54)
[2019-07-27] MEDS: HEPARIN for SUB-Q USE 5,000 UNIT/ML VIAL. SQ SCH (09:20)
[2019-07-27] MEDS: DOXYCYCLINE HYCLATE 100 MG in IV DEXTROSE 5% 100ML 100 ML IV SCH ×2 (09:21→20:54)
[2019-07-27 09:29] LABS: BASE EXCESS ABG 2 mmol/L (-3-3); HCO3 ABG 26 mmol/L (21-28); PCO2 ABG 40 mmHg (35-46); PO2 ABG 69 mmHg (75-108); SAT O2 ABG 95 % (92-99)
--- NOTE | 2019-07-27 09:59 | CONS ---
DATE OF CONSULTATION: 07/27/2019 REFERRING PHYSICIAN: Dr. Gauthier. REASON FOR CONSULTATION: Sepsis. HISTORY OF PRESENT ILLNESS: A 48-year-old [place] gentleman admitted to [facility] for acute respiratory failure, status post cardiopulmonary arrest. The patient first presented to [facility] on 07/25/2019 when he was brought in by ambulance as a cardiac arrest at work. The patient had a PEA, after 25 minutes of CPR, the patient got 3 rounds of epinephrine and was intubated. The patient's brother and is at bedside, [place] speaking, they had a friend who translated for the family at bedside today. The patient has history of nonischemic cardiomyopathy at [facility] couple of years ago, cardiac catheterization was done, which was negative. A repeat echo showed improvement in his ejection fraction. There is a possible history of diabetes. Details are not clear. The patient did not have any fevers, was not on any antibiotics prior to admission. There was no sick contact. CT head, noncontrast was negative. The patient's white count was 16,000. Temperature was 96.9. The patient was given a dose of piperacillin and tazobactam. Creatinine was 1.8. A CT of the head also showed moderate sized left maxillary sinus air fluid level, opacification of the left ethmoid sinus air cells. The patient underwent CT angiography chest, abdomen and pelvis, which showed no evidence of central pulmonary embolism, bibasilar lung consolidation changes with patchy airspace opacities identified in the bilateral lungs, likely atelectasis or infiltrates or aspiration. Hepatic steatosis, large right inguinal hernia containing cecum, appendix and terminal ileum. Cardiology had seen the patient at [facility] and he was started on amiodarone. Currently, the patient is on amiodarone. He also was on Levophed, which has been discontinued. The patient is currently on dobutamine. He is ventilated. Temperature was 95.4, currently is 97 on Yadira Hugger. He has minimal ET tube secretion. He has left femoral vein, left femoral access in place, EJ on the right side, arterial line, Victoria placement, OGT placement. The patient is not currently on any steroids. His white count at presentation at [facility] was 21.8. Lactate was elevated at 8. Currently, his white count has come down to 11.5. Creatinine was 2.3, today is 2.5. Calcium of 6.7, phosphorus of 5.0, bicarbonate of 17. CK of 1095. The patient is currently on doxycycline and Rocephin. ID consult has been requested for antibiotic management. PAST MEDICAL HISTORY: History of possible diabetes, nonischemic cardiomyopathy as above, otherwise unavailable. ALLERGIES: No known drug allergies. REVIEW OF SYSTEMS: Unable to obtain, but limited as above. Discussed with the patient's RN and friend, who translated for brother and at bedside. SOCIAL HISTORY: Rare alcohol. PHYSICAL EXAMINATION: VITAL SIGNS: Temperature 97.0, pulse 75, respiratory rate 20, blood pressure 110/60, oxygen saturation 99% on ventilator 40%. GENERAL: Well-developed, well-nourished male, intubated. HEENT: Pupil nonreactive, orally intubated. OGT in place. No lesions seen. NECK: Supple, no lymphadenopathy. HEART: S1, S2. ABDOMEN: Obese. Bowel sounds present. LUNGS: Decreased breath sound at the bases. EXTREMITIES: No edema. DERMATOLOGIC: Warm, dry. No generalized rash. CENTRAL NERVOUS SYSTEM: Ventilated and sedated. GENITOURINARY: Victoria in place. LINES: Arterial line, right EJ, left femoral PIV site looks okay. LABORATORY DATA: WBC ____, hemoglobin 13.5, hematocrit 40.2, platelets 96. Sodium 145, potassium 3.4, chloride 110, bicarbonate 27, BUN 29, creatinine 2.5, glucose 138, bilirubin 0.4, AST 170, ALT 228, total protein 5.2, albumin 2.2, ____ 112. CK 1095. Lactate was 9.9. Micro: Blood culture negative. IMAGIN. CT head, as above at [place]. 2. CTA chest, abdomen and pelvis, as above. 3. Chest x-ray, suboptimal positioning limiting optimal evaluation, stable. Moderate cardiomegaly, interstitial edema. IMPRESSION: 1. Anoxic/hypoxic encephalopathy. 2. Metabolic encephalopathy. 3. Hypocalcemia. 4. Hematuria, pyuria with leukocyte esterase negative. 5. Acute kidney injury with rhabdomyolysis. 6. Thrombocytopenia. 7. Leukocytosis, likely reactive. 8. Lactic acidosis, multifactorial as above. 9. Cardiac arrest on presentation ,status post pulseless electrical activity arrest, cardiac arrhythmia status post epinephrine, CPR, shocks. 10. Morbid obesity. 11. CT head showed moderate sized left maxillary sinus air fluid level, opacification of the left ethmoid sinus air cells. Per family, the patient did not have any fever or systemic symptoms. Prior to admission, was not on any antibiotics. 12. Bibasilar lung consolidation changes, likely pneumonia or atelectasis or aspiration. 13. A 4 mm fatty density identified in the right kidney, likely angiomyolipoma. 14. Degenerative joint disease. 15. Large right inguinal hernia containing cecum, appendix and terminal ileum. 16. Hepatic steatosis. 17. H/O NICM per staff RECOMMENDATIONS: 1. Discontinue Rocephin. 2. Continue empiric doxycycline. 3. Add meropenem. 4. Add empiric daptomycin. 5. Discontinue right femoral line if possible 6. Follow up cultures and lab. 7. Continue supportive care. 8. Condition critical. 9. Prognosis poor. Discussed with brother and at bedside. Discussed with nursing staff. Thank you for consulting Infectious Disease to participate in this patient's care. We will follow along with you. TOO CEVALLOS MD DR: OCTAVIA/ree JOB#: [id number] / [id number] KRISTYN
--- NOTE | 2019-07-27 10:00 | NUR ---
Procardia XL not given since it would have to be crushed and put down OG tube. Addendum: 07/27/19 at 1833 by TESSA SANTAMARIA RN error, entered on wrong pt.
[2019-07-27] MEDS: DAPTOmycin (GENERIC) IVPB 400 MG in IV NORMAL SALINE 50ML 50 ML IV SCH (10:56)
--- NOTE | 2019-07-27 11:12 | PDOC ---
PROGRESS NOTES Chief Complaint Chief Complaint acute metabolic encephalopahty cardiac arrest in field PEA arrest higher concern now for permanent neurological injury, poorly responsive, cardiac arrhythmia HX Of htn and unknown cardiac condition per family tobacco use disorder, obese, BMI 37 leukocytosis, lactic acidosis, abx given, cx pending, unknown source, s/p CPR and shocks on amio, is getting cooling protocol History of Present Illness History of Present Illness many family and relatives here today brain reflexes are not working , pupils are very small, dolls eye pathology, neuro following Vitals Vitals Vital Signs Date Time Temp Pulse Resp B/P (MAP) Pulse Ox O2 Delivery O2 Flow Rate FiO2 07/27/19 09:00 98.4 80 20 99/74 99 Ventilator Physical Exam Physical Exam on vent, not responsive to painful General: No acute distress, Other (sedated ) Lungs: Crackles, Other (dull at bases) Abdomen: Soft Extremities: No clubbing, No cyanosis, No edema, Normal pulses Skin: No rashes, No breakdown Labs LABS Laboratory Tests Test 07/26/19 11:12 07/26/19 12:17 07/26/19 13:31 07/26/19 14:20 Glucose (Fingerstick) 266 mg/dL (70-99) 199 mg/dL (70-99) 185 mg/dL (70-99) White Blood Count 15.6 x10^3/uL (4.0-11.0) Red Blood Count 5.46 x10^6/uL (4.30-5.70) Hemoglobin 15.0 g/dL (13.0-17.5) Hematocrit 46.7 % (39.0-53.0) Mean Corpuscular Volume 86 fL (79-100) Mean Corpuscular Hemoglobin 28 pg (25-35) Mean Corpuscular Hemoglobin Concent 32 g/dL (31-37) Red Cell Distribution Width 14.3 % (11.5-14.5) Platelet Count 100 x10^3/uL (140-400) Neutrophils (%) (Auto) 89 % (31-73) Lymphocytes (%) (Auto) 5 % (24-48) Monocytes (%) (Auto) 6 % (0-9) Eosinophils (%) (Auto) 0 % (0-3) Basophils (%) (Auto) 0 % (0-3) Neutrophils # (Auto) 13.9 x10^3/uL (1.8-7.7) Lymphocytes # (Auto) 0.8 x10^3/uL (1.0-4.8) Monocytes # (Auto) 0.9 x10^3/uL (0.0-1.1) Eosinophils # (Auto) 0.0 x10^3/uL (0.0-0.7) Basophils # (Auto) 0.1 x10^3/uL (0.0-0.2) Prothrombin Time 17.4 SEC (11.7-14.0) Prothromb Time International Ratio 1.5 (0.8-1.1) Activated Partial Thromboplast Time 36 SEC (24-38) Sodium Level 145 mmol/L (136-145) Potassium Level 4.0 mmol/L (3.5-5.1) Chloride Level 112 mmol/L (98-107) Carbon Dioxide Level 17 mmol/L (21-32) Anion Gap 16 (6-14) Blood Urea Nitrogen 31 mg/dL (8-26) Creatinine 2.6 mg/dL (0.7-1.3) Estimated GFR (Cockcroft-Gault) 26.6 Glucose Level 211 mg/dL (70-99) Calcium Level 6.7 mg/dL (8.5-10.1) Phosphorus Level 5.0 mg/dL (2.6-4.7) Magnesium Level 2.7 mg/dL (1.8-2.4) Creatine Kinase 1095 U/L (39-308) Test 07/26/19 14:21 07/26/19 15:43 07/26/19 17:08 07/26/19 18:03 Glucose (Fingerstick) 192 mg/dL (70-99) 172 mg/dL (70-99) 166 mg/dL (70-99) 153 mg/dL (70-99) Test 07/26/19 19:08 07/26/19 20:12 07/26/19 20:16 07/26/19 21:19 Glucose (Fingerstick) 141 mg/dL (70-99) 137 mg/dL (70-99) 123 mg/dL (70-99) O2 Saturation 94 % (92-99) Arterial Blood pH 7.30 (7.35-7.45) Arterial Blood pH (Temp corrected) 7.36 Arterial Blood pCO2 at Patient Temp 42 mmHg (35-46) Arterial Blood pCO2 (Temp correct) 35 mmHg Arterial Blood pO2 at Patient Temp 70 mmHg (75-108) Arterial Blood pO2 (Temp corrected) 53 mmHg Arterial Blood HCO3 20 mmol/L (21-28) Arterial Blood Base Excess -6 mmol/L (-3-3) FiO2 40 Test 07/26/19 22:21 07/26/19 23:26 07/27/19 01:03 07/27/19 01:54 Glucose (Fingerstick) 122 mg/dL (70-99) 76 mg/dL (70-99) 57 mg/dL (70-99) 194 mg/dL (70-99) Test 07/27/19 03:00 07/27/19 05:26 07/27/19 05:30 07/27/19 07:55 Glucose (Fingerstick) 150 mg/dL (70-99) 121 mg/dL (70-99) 112 mg/dL (70-99) White Blood Count 11.5 x10^3/uL (4.0-11.0) Red Blood Count 4.87 x10^6/uL (4.30-5.70) Hemoglobin 13.5 g/dL (13.0-17.5) Hematocrit 40.2 % (39.0-53.0) Mean Corpuscular Volume 83 fL (79-100) Mean Corpuscular Hemoglobin 28 pg (25-35) Mean Corpuscular Hemoglobin Concent 34 g/dL (31-37) Red Cell Distribution Width 14.1 % (11.5-14.5) Platelet Count 96 x10^3/uL (140-400) Neutrophils (%) (Auto) 86 % (31-73) Lymphocytes (%) (Auto) 7 % (24-48) Monocytes (%) (Auto) 6 % (0-9) Eosinophils (%) (Auto) 0 % (0-3) Basophils (%) (Auto) 0 % (0-3) Neutrophils # (Auto) 9.9 x10^3/uL (1.8-7.7) Lymphocytes # (Auto) 0.9 x10^3/uL (1.0-4.8) Monocytes # (Auto) 0.7 x10^3/uL (0.0-1.1) Eosinophils # (Auto) 0.0 x10^3/uL (0.0-0.7) Basophils # (Auto) 0.0 x10^3/uL (0.0-0.2) Prothrombin Time 18.5 SEC (11.7-14.0) Prothromb Time International Ratio 1.6 (0.8-1.1) Sodium Level 145 mmol/L (136-145) Potassium Level 3.4 mmol/L (3.5-5.1) Chloride Level 110 mmol/L (98-107) Carbon Dioxide Level 27 mmol/L (21-32) Anion Gap 8 (6-14) Blood Urea Nitrogen 29 mg/dL (8-26) Creatinine 2.5 mg/dL (0.7-1.3) Estimated GFR (Cockcroft-Gault) 27.8 BUN/Creatinine Ratio 12 (6-20) Glucose Level 138 mg/dL (70-99) Calcium Level 6.7 mg/dL (8.5-10.1) Total Bilirubin 0.4 mg/dL (0.2-1.0) Aspartate Amino Transf (AST/SGOT) 170 U/L (15-37) Alanine Aminotransferase (ALT/SGPT) 228 U/L (16-63) Alkaline Phosphatase 64 U/L (46-116) Creatine Kinase 887 U/L (39-308) Total Protein 5.2 g/dL (6.4-8.2) Albumin 2.2 g/dL (3.4-5.0) Albumin/Globulin Ratio 0.7 (1.0-1.7) Test 07/27/19 09:05 Glucose (Fingerstick) 117 mg/dL (70-99) Comment Review of Relevant I have reviewed the following items talha (where applicable) has been applied. Labs Laboratory Tests Test 07/25/19 18:25 07/25/19 19:55 07/25/19 20:01 07/26/19 02:05 White Blood Count 21.8 x10^3/uL (4.0-11.0) Red Blood Count 5.56 x10^6/uL (4.30-5.70) Hemoglobin 15.2 g/dL (13.0-17.5) Hematocrit 47.7 % (39.0-53.0) Mean Corpuscular Volume 86 fL (79-100) Mean Corpuscular Hemoglobin 27 pg (25-35) Mean Corpuscular Hemoglobin Concent 32 g/dL (31-37) Red Cell Distribution Width 14.5 % (11.5-14.5) Platelet Count 193 x10^3/uL (140-400) Neutrophils (%) (Auto) 81 % (31-73) Lymphocytes (%) (Auto) 10 % (24-48) Monocytes (%) (Auto) 9 % (0-9) Eosinophils (%) (Auto) 0 % (0-3) Basophils (%) (Auto) 0 % (0-3) Neutrophils # (Auto) 17.7 x10^3/uL (1.8-7.7) Lymphocytes # (Auto) 2.1 x10^3/uL (1.0-4.8) Monocytes # (Auto) 1.9 x10^3/uL (0.0-1.1) Eosinophils # (Auto) 0.1 x10^3/uL (0.0-0.7) Basophils # (Auto) 0.1 x10^3/uL (0.0-0.2) Segmented Neutrophils % 57 % (35-66) Band Neutrophils % 22 % (0-9) Lymphocytes % 9 % (24-48) Monocytes % 11 % (0-10) Eosinophils % 1 % (0-5) Platelet Estimate Adequate (ADEQUATE) Prothrombin Time 16.1 SEC (11.7-14.0) Prothromb Time International Ratio 1.3 (0.8-1.1) Sodium Level 148 mmol/L (136-145) Potassium Level 4.0 mmol/L (3.5-5.1) Chloride Level 110 mmol/L (98-107) Carbon Dioxide Level 24 mmol/L (21-32) Anion Gap 14 (6-14) Blood Urea Nitrogen 28 mg/dL (8-26) Creatinine 2.3 mg/dL (0.7-1.3) Estimated GFR (Cockcroft-Gault) 30.6 Glucose Level 157 mg/dL (70-99) Calcium Level 7.1 mg/dL (8.5-10.1) Ionized Calcium 0.92 mmol/L (1.13-1.32) Phosphorus Level 5.7 mg/dL (2.6-4.7) Magnesium Level 1.8 mg/dL (1.8-2.4) O2 Saturation 99 % (92-99) Arterial Blood pH 7.22 (7.35-7.45) Arterial Blood pH (Temp corrected) 7.24 Arterial Blood pCO2 at Patient Temp 41 mmHg (35-46) Arterial Blood pCO2 (Temp correct) 38 mmHg Arterial Blood pO2 at Patient Temp 442 mmHg (75-108) Arterial Blood pO2 (Temp corrected) 434 mmHg Arterial Blood HCO3 16 mmol/L (21-28) Arterial Blood Base Excess -11 mmol/L (-3-3) FiO2 100 Glucose (Fingerstick) 144 mg/dL (70-99) 185 mg/dL (70-99) Test 07/26/19 02:15 07/26/19 06:00 07/26/19 07:50 07/26/19 08:00 White Blood Count 23.5 x10^3/uL (4.0-11.0) 25.5 x10^3/uL (4.0-11.0) Red Blood Count 5.97 x10^6/uL (4.30-5.70) 5.87 x10^6/uL (4.30-5.70) Hemoglobin 16.4 g/dL (13.0-17.5) 16.1 g/dL (13.0-17.5) Hematocrit 51.2 % (39.0-53.0) 51.1 % (39.0-53.0) Mean Corpuscular Volume 86 fL (79-100) 87 fL (79-100) Mean Corpuscular Hemoglobin 27 pg (25-35) 27 pg (25-35) Mean Corpuscular Hemoglobin Concent 32 g/dL (31-37) 31 g/dL (31-37) Red Cell Distribution Width 14.4 % (11.5-14.5) 14.7 % (11.5-14.5) Platelet Count 197 x10^3/uL (140-400) 208 x10^3/uL (140-400) Neutrophils (%) (Auto) 82 % (31-73) 88 % (31-73) Lymphocytes (%) (Auto) 9 % (24-48) 6 % (24-48) Monocytes (%) (Auto) 8 % (0-9) 6 % (0-9) Eosinophils (%) (Auto) 0 % (0-3) 0 % (0-3) Basophils (%) (Auto) 0 % (0-3) 0 % (0-3) Neutrophils # (Auto) 19.3 x10^3/uL (1.8-7.7) 22.4 x10^3/uL (1.8-7.7) Lymphocytes # (Auto) 2.1 x10^3/uL (1.0-4.8) 1.4 x10^3/uL (1.0-4.8) Monocytes # (Auto) 1.9 x10^3/uL (0.0-1.1) 1.6 x10^3/uL (0.0-1.1) Eosinophils # (Auto) 0.0 x10^3/uL (0.0-0.7) 0.0 x10^3/uL (0.0-0.7) Basophils # (Auto) 0.0 x10^3/uL (0.0-0.2) 0.1 x10^3/uL (0.0-0.2) Prothrombin Time 17.1 SEC (11.7-14.0) Prothromb Time International Ratio 1.4 (0.8-1.1) Sodium Level 144 mmol/L (136-145) 147 mmol/L (136-145) Potassium Level 3.9 mmol/L (3.5-5.1) 3.8 mmol/L (3.5-5.1) Chloride Level 110 mmol/L (98-107) 111 mmol/L (98-107) Carbon Dioxide Level 17 mmol/L (21-32) 14 mmol/L (21-32) Anion Gap 17 (6-14) 22 (6-14) Blood Urea Nitrogen 30 mg/dL (8-26) 31 mg/dL (8-26) Creatinine 2.5 mg/dL (0.7-1.3) 2.8 mg/dL (0.7-1.3) Estimated GFR (Cockcroft-Gault) 27.8 24.4 Glucose Level 250 mg/dL (70-99) 265 mg/dL (70-99) Calcium Level 6.5 mg/dL (8.5-10.1) 6.6 mg/dL (8.5-10.1) Magnesium Level 2.2 mg/dL (1.8-2.4) 2.0 mg/dL (1.8-2.4) Alkaline Phosphatase 87 U/L (46-116) Lactic Acid Level 8.9 mmol/L (0.4-2.0) Phosphorus Level 7.6 mg/dL (2.6-4.7) Urine Collection Type Unknown Urine Color Yellow Urine Clarity Cloudy Urine pH 5.0 Urine Specific Franklin >=1.030 Urine Protein 100 mg/dL (NEG-TRACE) Urine Glucose (UA) Negative mg/dL (NEG) Urine Ketones (Stick) Negative mg/dL (NEG) Urine Blood Large (NEG) Urine Nitrite Negative (NEG) Urine Bilirubin Small (NEG) Urine Urobilinogen Dipstick 1.0 mg/dL (0.2 mg/dL) Urine Leukocyte Esterase Negative (NEG) Urine RBC 3-5 /HPF (0-2) Urine WBC 5-10 /HPF (0-4) Urine Squamous Epithelial Cells Occ /LPF Urine Renal Epithelial Cells Few /LPF Urine Amorphous Sediment Present /HPF Urine Bacteria Few /HPF (0-FEW) Urine Granular Casts Few /HPF Urine Waxy Casts Occasional /HPF Urine Mucus Slight /LPF Influenza Type A Antigen Negative (NEGATIVE) Influenza Type B Antigen Negative (NEGATIVE) Test 07/26/19 08:30 07/26/19 10:00 07/26/19 10:05 07/26/19 11:12 O2 Saturation 96 % (92-99) Arterial Blood pH 7.00 (7.35-7.45) Arterial Blood pH (Temp corrected) 7.05 Arterial Blood pCO2 at Patient Temp 49 mmHg (35-46) Arterial Blood pCO2 (Temp correct) 41 mmHg Arterial Blood pO2 at Patient Temp 102 mmHg (75-108) Arterial Blood pO2 (Temp corrected) 80 mmHg Arterial Blood HCO3 12 mmol/L (21-28) Arterial Blood Base Excess -20 mmol/L (-3-3) Lactic Acid Level 9.9 mmol/L (0.4-2.0) Glucose (Fingerstick) 249 mg/dL (70-99) 266 mg/dL (70-99) Test 07/26/19 12:17 07/26/19 13:31 07/26/19 14:20 07/26/19 14:21 Glucose (Fingerstick) 199 mg/dL (70-99) 185 mg/dL (70-99) 192 mg/dL (70-99) White Blood Count 15.6 x10^3/uL (4.0-11.0) Red Blood Count 5.46 x10^6/uL (4.30-5.70) Hemoglobin 15.0 g/dL (13.0-17.5) Hematocrit 46.7 % (39.0-53.0) Mean Corpuscular Volume 86 fL (79-100) Mean Corpuscular Hemoglobin 28 pg (25-35) Mean Corpuscular Hemoglobin Concent 32 g/dL (31-37) Red Cell Distribution Width 14.3 % (11.5-14.5) Platelet Count 100 x10^3/uL (140-400) Neutrophils (%) (Auto) 89 % (31-73) Lymphocytes (%) (Auto) 5 % (24-48) Monocytes (%) (Auto) 6 % (0-9) Eosinophils (%) (Auto) 0 % (0-3) Basophils (%) (Auto) 0 % (0-3) Neutrophils # (Auto) 13.9 x10^3/uL (1.8-7.7) Lymphocytes # (Auto) 0.8 x10^3/uL (1.0-4.8) Monocytes # (Auto) 0.9 x10^3/uL (0.0-1.1) Eosinophils # (Auto) 0.0 x10^3/uL (0.0-0.7) Basophils # (Auto) 0.1 x10^3/uL (0.0-0.2) Prothrombin Time 17.4 SEC (11.7-14.0) Prothromb Time International Ratio 1.5 (0.8-1.1) Activated Partial Thromboplast Time 36 SEC (24-38) Sodium Level 145 mmol/L (136-145) Potassium Level 4.0 mmol/L (3.5-5.1) Chloride Level 112 mmol/L (98-107) Carbon Dioxide Level 17 mmol/L (21-32) Anion Gap 16 (6-14) Blood Urea Nitrogen 31 mg/dL (8-26) Creatinine 2.6 mg/dL (0.7-1.3) Estimated GFR (Cockcroft-Gault) 26.6 Glucose Level 211 mg/dL (70-99) Calcium Level 6.7 mg/dL (8.5-10.1) Phosphorus Level 5.0 mg/dL (2.6-4.7) Magnesium Level 2.7 mg/dL (1.8-2.4) Creatine Kinase 1095 U/L (39-308) Test 07/26/19 15:43 07/26/19 17:08 07/26/19 18:03 07/26/19 19:08 Glucose (Fingerstick) 172 mg/dL (70-99) 166 mg/dL (70-99) 153 mg/dL (70-99) 141 mg/dL (70-99) Test 07/26/19 20:12 07/26/19 20:16 07/26/19 21:19 07/26/19 22:21 O2 Saturation 94 % (92-99) Arterial Blood pH 7.30 (7.35-7.45) Arterial Blood pH (Temp corrected) 7.36 Arterial Blood pCO2 at Patient Temp 42 mmHg (35-46) Arterial Blood pCO2 (Temp correct) 35 mmHg Arterial Blood pO2 at Patient Temp 70 mmHg (75-108) Arterial Blood pO2 (Temp corrected) 53 mmHg Arterial Blood HCO3 20 mmol/L (21-28) Arterial Blood Base Excess -6 mmol/L (-3-3) FiO2 40 Glucose (Fingerstick) 137 mg/dL (70-99) 123 mg/dL (70-99) 122 mg/dL (70-99) Test 07/26/19 23:26 07/27/19 01:03 07/27/19 01:54 07/27/19 03:00 Glucose (Fingerstick) 76 mg/dL (70-99) 57 mg/dL (70-99) 194 mg/dL (70-99) 150 mg/dL (70-99) Test 07/27/19 05:26 07/27/19 05:30 07/27/19 07:55 07/27/19 09:05 Glucose (Fingerstick) 121 mg/dL (70-99) 112 mg/dL (70-99) 117 mg/dL (70-99) White Blood Count 11.5 x10^3/uL (4.0-11.0) Red Blood Count 4.87 x10^6/uL (4.30-5.70) Hemoglobin 13.5 g/dL (13.0-17.5) Hematocrit 40.2 % (39.0-53.0) Mean Corpuscular Volume 83 fL (79-100) Mean Corpuscular Hemoglobin 28 pg (25-35) Mean Corpuscular Hemoglobin Concent 34 g/dL (31-37) Red Cell Distribution Width 14.1 % (11.5-14.5) Platelet Count 96 x10^3/uL (140-400) Neutrophils (%) (Auto) 86 % (31-73) Lymphocytes (%) (Auto) 7 % (24-48) Monocytes (%) (Auto) 6 % (0-9) Eosinophils (%) (Auto) 0 % (0-3) Basophils (%) (Auto) 0 % (0-3) Neutrophils # (Auto) 9.9 x10^3/uL (1.8-7.7) Lymphocytes # (Auto) 0.9 x10^3/uL (1.0-4.8) Monocytes # (Auto) 0.7 x10^3/uL (0.0-1.1) Eosinophils # (Auto) 0.0 x10^3/uL (0.0-0.7) Basophils # (Auto) 0.0 x10^3/uL (0.0-0.2) Prothrombin Time 18.5 SEC (11.7-14.0) Prothromb Time International Ratio 1.6 (0.8-1.1) Sodium Level 145 mmol/L (136-145) Potassium Level 3.4 mmol/L (3.5-5.1) Chloride Level 110 mmol/L (98-107) Carbon Dioxide Level 27 mmol/L (21-32) Anion Gap 8 (6-14) Blood Urea Nitrogen 29 mg/dL (8-26) Creatinine 2.5 mg/dL (0.7-1.3) Estimated GFR (Cockcroft-Gault) 27.8 BUN/Creatinine Ratio 12 (6-20) Glucose Level 138 mg/dL (70-99) Calcium Level 6.7 mg/dL (8.5-10.1) Total Bilirubin 0.4 mg/dL (0.2-1.0) Aspartate Amino Transf (AST/SGOT) 170 U/L (15-37) Alanine Aminotransferase (ALT/SGPT) 228 U/L (16-63) Alkaline Phosphatase 64 U/L (46-116) Creatine Kinase 887 U/L (39-308) Total Protein 5.2 g/dL (6.4-8.2) Albumin 2.2 g/dL (3.4-5.0) Albumin/Globulin Ratio 0.7 (1.0-1.7) Laboratory Tests Test 07/26/19 11:12 07/26/19 12:17 07/26/19 13:31 07/26/19 14:20 Glucose (Fingerstick) 266 mg/dL (70-99) 199 mg/dL (70-99) 185 mg/dL (70-99) White Blood Count 15.6 x10^3/uL (4.0-11.0) Red Blood Count 5.46 x10^6/uL (4.30-5.70) Hemoglobin 15.0 g/dL (13.0-17.5) Hematocrit 46.7 % (39.0-53.0) Mean Corpuscular Volume 86 fL (79-100) Mean Corpuscular Hemoglobin 28 pg (25-35) Mean Corpuscular Hemoglobin Concent 32 g/dL (31-37) Red Cell Distribution Width 14.3 % (11.5-14.5) Platelet Count 100 x10^3/uL (140-400) Neutrophils (%) (Auto) 89 % (31-73) Lymphocytes (%) (Auto) 5 % (24-48) Monocytes (%) (Auto) 6 % (0-9) Eosinophils (%) (Auto) 0 % (0-3) Basophils (%) (Auto) 0 % (0-3) Neutrophils # (Auto) 13.9 x10^3/uL (1.8-7.7) Lymphocytes # (Auto) 0.8 x10^3/uL (1.0-4.8) Monocytes # (Auto) 0.9 x10^3/uL (0.0-1.1) Eosinophils # (Auto) 0.0 x10^3/uL (0.0-0.7) Basophils # (Auto) 0.1 x10^3/uL (0.0-0.2) Prothrombin Time 17.4 SEC (11.7-14.0) Prothromb Time International Ratio 1.5 (0.8-1.1) Activated Partial Thromboplast Time 36 SEC (24-38) Sodium Level 145 mmol/L (136-145) Potassium Level 4.0 mmol/L (3.5-5.1) Chloride Level 112 mmol/L (98-107) Carbon Dioxide Level 17 mmol/L (21-32) Anion Gap 16 (6-14) Blood Urea Nitrogen 31 mg/dL (8-26) Creatinine 2.6 mg/dL (0.7-1.3) Estimated GFR (Cockcroft-Gault) 26.6 Glucose Level 211 mg/dL (70-99) Calcium Level 6.7 mg/dL (8.5-10.1) Phosphorus Level 5.0 mg/dL (2.6-4.7) Magnesium Level 2.7 mg/dL (1.8-2.4) Creatine Kinase 1095 U/L (39-308) Test 07/26/19 14:21 07/26/19 15:43 07/26/19 17:08 07/26/19 18:03 Glucose (Fingerstick) 192 mg/dL (70-99) 172 mg/dL (70-99) 166 mg/dL (70-99) 153 mg/dL (70-99) Test 07/26/19 19:08 07/26/19 20:12 07/26/19 20:16 07/26/19 21:19 Glucose (Fingerstick) 141 mg/dL (70-99) 137 mg/dL (70-99) 123 mg/dL (70-99) O2 Saturation 94 % (92-99) Arterial Blood pH 7.30 (7.35-7.45) Arterial Blood pH (Temp corrected) 7.36 Arterial Blood pCO2 at Patient Temp 42 mmHg (35-46) Arterial Blood pCO2 (Temp correct) 35 mmHg Arterial Blood pO2 at Patient Temp 70 mmHg (75-108) Arterial Blood pO2 (Temp corrected) 53 mmHg Arterial Blood HCO3 20 mmol/L (21-28) Arterial Blood Base Excess -6 mmol/L (-3-3) FiO2 40 Test 10/19/19 22:21 07/26/19 23:26 07/27/19 01:03 07/27/19 01:54 Glucose (Fingerstick) 122 mg/dL (70-99) 76 mg/dL (70-99) 57 mg/dL (70-99) 194 mg/dL (70-99) Test 07/27/19 03:00 07/27/19 05:26 07/27/19 05:30 07/27/19 07:55 Glucose (Fingerstick) 150 mg/dL (70-99) 121 mg/dL (70-99) 112 mg/dL (70-99) White Blood Count 11.5 x10^3/uL (4.0-11.0) Red Blood Count 4.87 x10^6/uL (4.30-5.70) Hemoglobin 13.5 g/dL (13.0-17.5) Hematocrit 40.2 % (39.0-53.0) Mean Corpuscular Volume 83 fL (79-100) Mean Corpuscular Hemoglobin 28 pg (25-35) Mean Corpuscular Hemoglobin Concent 34 g/dL (31-37) Red Cell Distribution Width 14.1 % (11.5-14.5) Platelet Count 96 x10^3/uL (140-400) Neutrophils (%) (Auto) 86 % (31-73) Lymphocytes (%) (Auto) 7 % (24-48) Monocytes (%) (Auto) 6 % (0-9) Eosinophils (%) (Auto) 0 % (0-3) Basophils (%) (Auto) 0 % (0-3) Neutrophils # (Auto) 9.9 x10^3/uL (1.8-7.7) Lymphocytes # (Auto) 0.9 x10^3/uL (1.0-4.8) Monocytes # (Auto) 0.7 x10^3/uL (0.0-1.1) Eosinophils # (Auto) 0.0 x10^3/uL (0.0-0.7) Basophils # (Auto) 0.0 x10^3/uL (0.0-0.2) Prothrombin Time 18.5 SEC (11.7-14.0) Prothromb Time International Ratio 1.6 (0.8-1.1) Sodium Level 145 mmol/L (136-145) Potassium Level 3.4 mmol/L (3.5-5.1) Chloride Level 110 mmol/L (98-107) Carbon Dioxide Level 27 mmol/L (21-32) Anion Gap 8 (6-14) Blood Urea Nitrogen 29 mg/dL (8-26) Creatinine 2.5 mg/dL (0.7-1.3) Estimated GFR (Cockcroft-Gault) 27.8 BUN/Creatinine Ratio 12 (6-20) Glucose Level 138 mg/dL (70-99) Calcium Level 6.7 mg/dL (8.5-10.1) Total Bilirubin 0.4 mg/dL (0.2-1.0) Aspartate Amino Transf (AST/SGOT) 170 U/L (15-37) Alanine Aminotransferase (ALT/SGPT) 228 U/L (16-63) Alkaline Phosphatase 64 U/L (46-116) Creatine Kinase 887 U/L (39-308) Total Protein 5.2 g/dL (6.4-8.2) Albumin 2.2 g/dL (3.4-5.0) Albumin/Globulin Ratio 0.7 (1.0-1.7) Test 07/27/19 09:05 Glucose (Fingerstick) 117 mg/dL (70-99) Microbiology 07/26/19 Blood Culture - Preliminary, Resulted NO GROWTH AFTER 1 DAY Medications Current Medications Norepinephrine Bitartrate 250 ml @ 15 mls/hr CONT PRN IV SEE I/O RECORD Last administered on 07/26/19at 10:22; Start 07/25/19 at 19:00 Amiodarone HCl 900 mg/Dextrose 518 ml @ 33 mls/hr CONT PRN IV SEE I/O RECORD Last administered on 07/26/19at 00:21; Start 07/25/19 at 19:00; Stop 07/26/19 at 00:25; Status DC Fentanyl Citrate (Fentanyl 2ml Vial) 100 mcg 1X ONCE IV Last administered on 07/25/19at 19:44; Start 07/25/19 at 19:30; Stop 07/25/19 at 19:31; Status DC Midazolam HCl (Versed) 2 mg 1X ONCE IV Last administered on 07/25/19at 19:43; Start 07/25/19 at 19:30; Stop 07/25/19 at 19:31; Status DC Magnesium Sulfate/ Dextrose 100 ml @ 100 mls/hr 1X ONCE IV Last administered on 07/25/19 19:44; Start 07/25/19 at 19:30; Stop 07/25/19 at 20:29; Status DC Buspirone HCl (Buspar) 30 mg Q8H NG Last administered on 07/26/19 12:27; Start 07/25/19 at 20:00; Stop 07/26/19 at 19:20; Status DC Acetaminophen (Tylenol) 650 mg Q4H NG Last administered on 07/26/19 17:54; Start 07/25/19 at 20:00; Stop 07/26/19 at 19:20; Status DC Artificial Tears (Artificial Tears) 1 drop Q6HRS OU Last administered on 07/26/19 17:54; Start 07/26/19 at 00:00 Artificial Tears (Artificial Tears) 1 drop PRN Q15MIN PRN OU DRY EYE; Start 07/25/19 at 19:00; Stop 07/26/19 at 20:23; Status DC Heparin Sodium (Porcine) (Heparin Sodium) 5,000 unit BID SQ Last administered on 07/27/19 09:20; Start 07/25/19 at 21:00 Pantoprazole Sodium (PROTONIX VIAL for IV PUSH) 40 mg DAILY IVP Last administer ed on 07/26/19 08:51; Start 07/25/19 at 20:00 Fentanyl Citrate 30 ml @ 0 mls/hr CONT PRN IV PER PROTOCOL. Last administered on 07/27/19 04:52; Start 07/25/19 at 19:00 Propofol 100 ml @ 0 mls/hr CONT PRN IV PER PROTOCOL.; Start 07/25/19 at 20:00 Midazolam HCl 100 ml @ 0 mls/hr CONT PRN IV PER PROTOCOL. Last administered on 07/26/19 15:44; Start 07/25/19 at 20:00 Vecuronium [place] (Norcuron Bolus) 8 mg PRN Q1HR PRN IV SHIVERING Last administered on 07/26/19 17:54; Start 07/25/19 at 19:00; Stop 07/26/19 at 19:20; Status DC Sodium Bicarbonate (Sodium Bicarb Adult 8.4% Syr) 50 meq 1X ONCE IV Last administered on 07/25/19at 20:30; Start 07/25/19 at 20:30; Stop 07/25/19 at 20:31; Status DC Sodium Chloride 1,000 ml @ 125 mls/hr 1X ONCE IV Last administered on 07/26/19at 01:42; Start 07/26/19 at 01:30; Stop 07/26/19 at 09:29; Status DC Sodium Chloride 1,000 ml @ 1,000 mls/hr 1X ONCE IV Last administered on 07/26/19at 01:30; Start 07/26/19 at 01:30; Stop 07/26/19 at 02:29; Status DC Hydrocortisone Sodium Succinate (Solu-CORTEF) 100 mg 1X ONCE IV Last administered on 07/26/19at 01:44; Start 07/26/19 at 01:45; Stop 07/26/19 at 01:46; Status DC Dobutamine HCl/ Dextrose 250 ml @ 6.566 mls/ hr CONT PRN IV SEE I/O RECORD; Start 07/26/19 at 06:00 Ceftriaxone Sodium (Rocephin) 1 gm Q24H IVP Last administered on 07/27/19at 06:16; Start 07/26/19 at 06:00; Stop 07/27/19 at 08:17; Status DC Doxycycline Hyclate 100 mg/ Dextrose 100 ml @ 50 mls/hr Q12HR IV Last administered on 07/27/19at 09:21; Start 07/26/19 at 09:00 Amiodarone HCl 900 mg/Dextrose 518 ml @ 0 mls/hr CONT PRN IV PER PROTOCOL; Start 07/26/19 at 08:00; Stop 07/26/19 at 07:55; Status DC Amiodarone HCl 450 mg/Dextrose 259 ml @ 17 mls/hr CONT PRN IV SEE I/O RECORD Last administered on 07/26/19at 23:03; Start 07/26/19 at 08:00 Insulin Human Regular 150 unit/ Sodium Chloride 151.5 ml @ 0 mls/hr CONT PRN IV SEE I/O RECORD Last administered on 07/26/19at 23:03; Start 07/26/19 at 08:15 Magnesium Sulfate 50 ml @ 25 mls/hr 1X ONCE IV Last administered on 07/26/19 10:23; Start 07/26/19 at 09:45; Stop 07/26/19 at 11:44; Status DC Sodium Bicarbonate 150 meq/Dextrose 1,150 ml @ 125 mls/hr Q9H12M IV Last administered on 07/27/19at 09:09; Start 07/26/19 at 15:00 Dextrose (Dextrose 50%-Water Syringe) 25 gm 1X ONCE IV Last administered on 07/27/19at 01:17; Start 07/27/19 at 01:15; Stop 07/27/19 at 01:16; Status DC Meropenem 500 mg/ Sodium Chloride 50 ml @ 100 mls/hr Q12HR IV Last administered on 07/27/19at 09:08; Start 07/27/19 at 09:00 Daptomycin 400 mg/ Sodium Chloride 50 ml @ 100 mls/hr Q24H IV ; Start 07/27/19 at 10:00 Potassium Bicarbonate (Potassium Effervescent Tablet) 60 meq 1X ONCE PEG Last administered on 07/27/19at 09:20; Start 07/27/19 at 09:00; Stop 07/27/19 at 09:01; Status DC Potassium Bicarbonate (Potassium Effervescent Tablet) 40 meq 1X ONCE PEG ; Start 07/27/19 at 11:00; Stop 07/27/19 at 11:01 Vitals/I & O Vital Sign - Last 24 Hours 07/26/19 07/26/19 07/26/19 07/26/19 12:00 12:00 12:00 12:00 Temp 91.9 91.9 91.9 Pulse 63 63 63 Resp B/P (MAP) 116/85 116/85 (95) 116/85 (95) Pulse Ox 100 100 O2 Delivery Ventilator Mechanical Ventilator Ventilator 07/26/19 07/26/19 07/26/19 07/26/19 13:00 13:00 13:44 14:00 Temp 91.6 91.6 91.6 91.6 91.6 Pulse 63 63 64 Resp B/P (MAP) 122/67 (85) 122/67 129/67 (87) Pulse Ox 100 100 100 100 O2 Delivery Ventilator Ventilator Ventilator Ventilator 07/26/19 07/26/19 07/26/19 07/26/19 14:00 15:00 15:00 16:00 Temp 91.6 91.5 91.5 91.9 91.5 Pulse 64 67 67 67 Resp 20 20 20 20 B/P (MAP) 129/67 137/73 (94) 137/73 134/71 Pulse Ox 100 99 100 100 O2 Delivery Ventilator Ventilator Ventilator Ventilator 07/26/19 07/26/19 07/26/19 07/26/19 16:00 16:00 16:00 16:29 Temp 91.9 91.9 Pulse 67 67 Resp 20 B/P (MAP) 134/71 (92) 134/71 (92) Pulse Ox 100 100 O2 Delivery Ventilator Mechanical Ventilator Ventilator 07/26/19 07/26/19 07/26/19 07/26/19 16:45 17:00 17:00 17:15 Temp 91.8 91.8 91.8 91.9 91.8 91.8 91.9 Pulse 66 66 66 66 Resp 20 20 20 20 B/P (MAP) 120/64 (82) 123/75 (91) 123/75 123/59 (80) Pulse Ox 98 98 100 100 O2 Delivery Ventilator Ventilator Ventilator Ventilator 07/26/19 07/26/19 07/26/19 07/26/19 17:45 18:00 19:00 19:00 Temp 91.9 91.4 91.4 91.4 Pulse 65 63 63 Resp 20 20 20 B/P (MAP) 103/57 138/74 138/74 (95) Pulse Ox 100 100 100 99 O2 Delivery Ventilator Ventilator Ventilator Ventilator 07/26/19 07/26/19 07/26/19 07/26/19 20:00 20:00 20:00 20:06 Temp 91.2 91.4 91.2 Pulse 61 61 60 Resp 20 20 B/P (MAP) 132/74 (93) 132/74 132/74 (93) Pulse Ox 99 100 O2 Delivery Ventilator Mechanical Ventilator Ventilator 07/26/19 07/26/19 07/26/19 07/26/19 20:20 21:03 21:03 21:44 Temp 91.8 91.5 91.8 Pulse 65 61 Resp 20 20 B/P (MAP) 135/76 (95) 134/78 Pulse Ox 100 99 100 100 O2 Delivery Ventilator Ventilator Ventilator Ventilator 07/26/19 07/26/19 07/26/19 10/19/19 22:00 22:00 23:00 23:00 Temp 92.7 92.7 92.7 92.7 92.7 92.7 Pulse 68 68 69 68 Resp 20 20 20 20 B/P (MAP) 131/71 (91) 131/71 113/63 (80) 113/63 Pulse Ox 99 100 97 100 O2 Delivery Ventilator Ventilator Ventilator Ventilator 07/26/19 07/26/19 07/26/19 07/26/19 23:59 23:59 23:59 23:59 Temp 93.9 93.9 93.9 Pulse 70 60 70 Resp 20 20 B/P (MAP) 114/62 114/62 (79) 114/62 (79) Pulse Ox 100 98 O2 Delivery Mechanical Ventilator Ventilator Ventilator 07/27/19 07/27/19 07/27/19 07/27/19 00:06 01:00 01:00 02:00 Temp 94.5 94.5 95.0 94.5 95.0 Pulse 72 70 72 Resp 20 20 20 B/P (MAP) 116/68 112/64 (80) 105/59 (74) Pulse Ox 100 100 96 98 O2 Delivery Ventilator Ventilator Ventilator Ventilator 07/27/19 07/27/19 07/27/19 07/27/19 02:00 02:14 03:00 03:00 Temp 95.0 95.4 95.4 95.4 Pulse 72 64 72 Resp 20 18 20 B/P (MAP) 105/59 104/63 (77) 104/63 Pulse Ox 100 100 97 100 O2 Delivery Ventilator Ventilator Ventilator Ventilator 07/27/19 07/27/19 07/27/19 07/27/19 04:00 04:00 04:00 04:00 Temp 95.5 95.5 95.5 Pulse 77 60 77 Resp 20 20 B/P (MAP) 107/58 (74) 107/58 (74) 104/63 Pulse Ox 99 100 O2 Delivery Mechanical Ventilator Ventilator Ventilator 07/27/19 07/27/19 07/27/19 07/27/19 04:22 04:52 05:00 05:00 Temp 96.6 96.6 96.6 Pulse 77 76 Resp 20 20 B/P (MAP) 104/77 105/55 (72) Pulse Ox 100 100 100 99 O2 Delivery Ventilator Ventilator Ventilator 07/27/19 07/27/19 07/27/19 07/27/19 06:00 06:00 06:00 07:00 Temp 97.0 97.0 97.5 97.0 97.5 Pulse 75 74 80 Resp 20 18 20 B/P (MAP) 110/61 110/61 (77) 112/69 (83) Pulse Ox 99 100 100 100 O2 Delivery Ventilator Ventilator Ventilator 07/27/19 07/27/19 07/27/19 07/27/19 07:00 08:00 08:00 08:00 Temp 97.5 97.9 97.9 97.9 Pulse 80 80 80 80 Resp 20 20 20 B/P (MAP) 112/69 103/69 (80) 103/69 103/69 (80) Pulse Ox 100 98 98 O2 Delivery Ventilator Ventilator Ventilator 07/27/19 07/27/19 07/27/19 08:53 09:00 09:00 Temp 98.4 98.4 98.4 Pulse 80 80 Resp 20 20 B/P (MAP) 99/74 (82) 99/74 Pulse Ox 99 99 99 O2 Delivery Ventilator Ventilator Ventilator Intake and Output 07/26/19 07/26/19 07/27/19 15:00 23:00 07:00 Intake Total 150 ml 4758 ml 2132 ml Output Total 410 ml 420 ml 300 ml Balance -260 ml 4338 ml 1832 ml MARYA MATTHEWS MD Jul 27, 2019 11:11
--- NOTE | 2019-07-27 11:23 | PDOC ---
SUBJECTIVE ROS Intubated OBJECTIVE Vital Signs Vital Signs Date Time Temp Pulse Resp B/P (MAP) Pulse Ox O2 Delivery O2 Flow Rate FiO2 07/27/19 09:00 98.4 80 20 99/74 99 Ventilator I & 0 Intake and Output 07/27/19 07:00 Intake Total 7040 ml Output Total 1160 ml Balance 5880 ml Intake IV Total 7040 ml Output Urine Total 1160 ml PHYSICAL EXAM Physical Exam General: Intubated ,unresponsive HEENT: Intubated Neck Supple Lungs: Clear to auscultation, Heart: S1S2, no murmurs, irregularly irregular Abdomen: Soft Extremities: No clubbing, No cyanosis, No edema, Skin: No rashes, No breakdown Neuro: per neurologist WILMAR Victorai + DIAGNOSIS/ASSESSMENT Assessment & Plan FABIAN -cardiac arrest in field,PEA arrest s/p CPR and shocks, Renal function stable , currently no emergent indication for [employer] CK mildly elevated , Supportive care On Pressors, Good UOP past 24 hrs but declined this am Leukocytosis, lactic acidosis ? Probable ARDS/septic shock? Pulm Infiltrates on CT chest ID consulted Ac Resp failute, Intubated, On MV, Off sedation Hypernatremia - resolved Metabolic acidosis - Resolved History of nonischemic cardiomyopathy at [facility],cardiac catheterization was done, which was negative. A repeat echo showed improvement in his ejection fraction. Cardiology following Anoxic/hypoxic encephalopathy- Neurology following COMMENT/RELEVANT DATA Meds Current Medications Medications (Trade) Dose Ordered Sig/Rosi Start Time Stop Time Status Last Admin Dose Admin Acetaminophen (Tylenol) 650 mg Q4H 07/25/19 20:00 07/26/19 19:20 DC 07/26/19 17:54 650 MG Amiodarone HCl 450 mg/Dextrose 259 ml @ 17 mls/hr CONT PRN 07/26/19 08:00 07/26/19 23:03 17 MLS/HR Amiodarone HCl 900 mg/Dextrose 518 ml @ 0 mls/hr CONT PRN 07/26/19 08:00 07/26/19 07:55 DC Artificial Tears (Artificial Tears) 1 drop PRN Q15MIN PRN 07/25/19 19:00 07/26/19 20:23 DC Buspirone HCl (Buspar) 30 mg Q8H 07/25/19 20:00 07/26/19 19:20 DC 07/26/19 12:27 30 MG Ceftriaxone Sodium (Rocephin) 1 gm Q24H 07/26/19 06:00 07/27/19 08:17 DC 07/27/19 06:16 1 GM Daptomycin 400 mg/ Sodium Chloride 50 ml @ 100 mls/hr Q24H 07/27/19 10:00 07/27/19 10:56 100 MLS/HR Dextrose (Dextrose 50%-Water Syringe) 25 gm 1X ONCE 07/27/19 01:15 07/27/19 01:16 DC 07/27/19 01:17 25 GM Dobutamine HCl/ Dextrose 250 ml @ 6.566 mls/ hr CONT PRN 07/26/19 06:00 Doxycycline Hyclate 100 mg/ Dextrose 100 ml @ 50 mls/hr Q12HR 07/26/19 09:00 07/27/19 09:21 50 MLS/HR Fentanyl Citrate 30 ml @ 0 mls/hr CONT PRN 07/25/19 19:00 07/27/19 04:52 2.5 MLS/HR Fentanyl Citrate (Fentanyl 2ml Vial) 100 mcg 1X ONCE 07/25/19 19:30 07/25/19 19:31 DC 07/25/19 19:44 100 MCG Heparin Sodium (Porcine) (Heparin Sodium) 5,000 unit BID 07/25/19 21:00 07/27/19 09:20 5,000 UNIT Hydrocortisone Sodium Succinate (Solu-CORTEF) 100 mg 1X ONCE 07/26/19 01:45 07/26/19 01:46 DC 07/26/19 01:44 100 MG Insulin Human Regular 150 unit/ Sodium Chloride 151.5 ml @ 0 mls/hr CONT PRN 07/26/19 08:15 07/26/19 23:03 4.3 MLS/HR Magnesium Sulfate 50 ml @ 25 mls/hr 1X ONCE 07/26/19 09:45 07/26/19 11:44 DC 07/26/19 10:23 25 MLS/HR Magnesium Sulfate/ Dextrose 100 ml @ 100 mls/hr 1X ONCE 07/25/19 19:30 07/25/19 20:29 DC 07/25/19 19:44 100 MLS/HR Meropenem 500 mg/ Sodium Chloride 50 ml @ 100 mls/hr Q12HR 07/27/19 09:00 07/27/19 09:08 100 MLS/HR Midazolam HCl 100 ml @ 0 mls/hr CONT PRN 07/25/19 20:00 07/26/19 15:44 5 MLS/HR Midazolam HCl (Versed) 2 mg 1X ONCE 07/25/19 19:30 07/25/19 19:31 DC 07/25/19 19:43 2 MG Norepinephrine Bitartrate 250 ml @ 15 mls/hr CONT PRN 07/25/19 19:00 07/26/19 10:22 45 MLS/HR Pantoprazole Sodium (PROTONIX VIAL for IV PUSH) 40 mg DAILY 07/25/19 20:00 07/26/19 08:51 40 MG Potassium Bicarbonate (Potassium Effervescent Tablet) 40 meq 1X ONCE 07/27/19 11:00 07/27/19 11:01 DC Propofol 100 ml @ 0 mls/hr CONT PRN 07/25/19 20:00 Sodium Bicarbonate 150 meq/Dextrose 1,150 ml @ 125 mls/hr Q9H12M 07/26/19 15:00 07/27/19 09:09 125 MLS/HR Sodium Bicarbonate (Sodium Bicarb Adult 8.4% Syr) 50 meq 1X ONCE 07/25/19 20:30 07/25/19 20:31 DC 07/25/19 20:30 50 MEQ Sodium Chloride 1,000 ml @ 1,000 mls/hr 1X ONCE 07/26/19 01:30 07/26/19 02:29 DC 07/26/19 01:30 1,000 MLS/HR Vecuronium [place] (Norcuron Bolus) 8 mg PRN Q1HR PRN 07/25/19 19:00 07/26/19 19:20 DC 07/26/19 17:54 8 MG Lab Laboratory Tests Test 07/26/19 11:12 07/26/19 12:17 07/26/19 13:31 07/26/19 14:20 Glucose (Fingerstick) 266 mg/dL (70-99) 199 mg/dL (70-99) 185 mg/dL (70-99) White Blood Count 15.6 x10^3/uL (4.0-11.0) Red Blood Count 5.46 x10^6/uL (4.30-5.70) Hemoglobin 15.0 g/dL (13.0-17.5) Hematocrit 46.7 % (39.0-53.0) Mean Corpuscular Volume 86 fL (79-100) Mean Corpuscular Hemoglobin 28 pg (25-35) Mean Corpuscular Hemoglobin Concent 32 g/dL (31-37) Red Cell Distribution Width 14.3 % (11.5-14.5) Platelet Count 100 x10^3/uL (140-400) Neutrophils (%) (Auto) 89 % (31-73) Lymphocytes (%) (Auto) 5 % (24-48) Monocytes (%) (Auto) 6 % (0-9) Eosinophils (%) (Auto) 0 % (0-3) Basophils (%) (Auto) 0 % (0-3) Neutrophils # (Auto) 13.9 x10^3/uL (1.8-7.7) Lymphocytes # (Auto) 0.8 x10^3/uL (1.0-4.8) Monocytes # (Auto) 0.9 x10^3/uL (0.0-1.1) Eosinophils # (Auto) 0.0 x10^3/uL (0.0-0.7) Basophils # (Auto) 0.1 x10^3/uL (0.0-0.2) Prothrombin Time 17.4 SEC (11.7-14.0) Prothromb Time International Ratio 1.5 (0.8-1.1) Activated Partial Thromboplast Time 36 SEC (24-38) Sodium Level 145 mmol/L (136-145) Potassium Level 4.0 mmol/L (3.5-5.1) Chloride Level 112 mmol/L (98-107) Carbon Dioxide Level 17 mmol/L (21-32) Anion Gap 16 (6-14) Blood Urea Nitrogen 31 mg/dL (8-26) Creatinine 2.6 mg/dL (0.7-1.3) Estimated GFR (Cockcroft-Gault) 26.6 Glucose Level 211 mg/dL (70-99) Calcium Level 6.7 mg/dL (8.5-10.1) Phosphorus Level 5.0 mg/dL (2.6-4.7) Magnesium Level 2.7 mg/dL (1.8-2.4) Creatine Kinase 1095 U/L (39-308) Test 07/26/19 14:21 07/26/19 15:43 07/26/19 17:08 07/26/19 18:03 Glucose (Fingerstick) 192 mg/dL (70-99) 172 mg/dL (70-99) 166 mg/dL (70-99) 153 mg/dL (70-99) Test 07/26/19 19:08 07/26/19 20:12 07/26/19 20:16 07/26/19 21:19 Glucose (Fingerstick) 141 mg/dL (70-99) 137 mg/dL (70-99) 123 mg/dL (70-99) O2 Saturation 94 % (92-99) Arterial Blood pH 7.30 (7.35-7.45) Arterial Blood pH (Temp corrected) 7.36 Arterial Blood pCO2 at Patient Temp 42 mmHg (35-46) Arterial Blood pCO2 (Temp correct) 35 mmHg Arterial Blood pO2 at Patient Temp 70 mmHg (75-108) Arterial Blood pO2 (Temp corrected) 53 mmHg Arterial Blood HCO3 20 mmol/L (21-28) Arterial Blood Base Excess -6 mmol/L (-3-3) FiO2 40 Test 07/26/19 22:21 07/26/19 23:26 07/27/19 01:03 07/27/19 01:54 Glucose (Fingerstick) 122 mg/dL (70-99) 76 mg/dL (70-99) 57 mg/dL (70-99) 194 mg/dL (70-99) Test 07/27/19 03:00 07/27/19 05:26 07/27/19 05:30 07/27/19 07:55 Glucose (Fingerstick) 150 mg/dL (70-99) 121 mg/dL (70-99) 112 mg/dL (70-99) White Blood Count 11.5 x10^3/uL (4.0-11.0) Red Blood Count 4.87 x10^6/uL (4.30-5.70) Hemoglobin 13.5 g/dL (13.0-17.5) Hematocrit 40.2 % (39.0-53.0) Mean Corpuscular Volume 83 fL (79-100) Mean Corpuscular Hemoglobin 28 pg (25-35) Mean Corpuscular Hemoglobin Concent 34 g/dL (31-37) Red Cell Distribution Width 14.1 % (11.5-14.5) Platelet Count 96 x10^3/uL (140-400) Neutrophils (%) (Auto) 86 % (31-73) Lymphocytes (%) (Auto) 7 % (24-48) Monocytes (%) (Auto) 6 % (0-9) Eosinophils (%) (Auto) 0 % (0-3) Basophils (%) (Auto) 0 % (0-3) Neutrophils # (Auto) 9.9 x10^3/uL (1.8-7.7) Lymphocytes # (Auto) 0.9 x10^3/uL (1.0-4.8) Monocytes # (Auto) 0.7 x10^3/uL (0.0-1.1) Eosinophils # (Auto) 0.0 x10^3/uL (0.0-0.7) Basophils # (Auto) 0.0 x10^3/uL (0.0-0.2) Prothrombin Time 18.5 SEC (11.7-14.0) Prothromb Time International Ratio 1.6 (0.8-1.1) Sodium Level 145 mmol/L (136-145) Potassium Level 3.4 mmol/L (3.5-5.1) Chloride Level 110 mmol/L (98-107) Carbon Dioxide Level 27 mmol/L (21-32) Anion Gap 8 (6-14) Blood Urea Nitrogen 29 mg/dL (8-26) Creatinine 2.5 mg/dL (0.7-1.3) Estimated GFR (Cockcroft-Gault) 27.8 BUN/Creatinine Ratio 12 (6-20) Glucose Level 138 mg/dL (70-99) Calcium Level 6.7 mg/dL (8.5-10.1) Total Bilirubin 0.4 mg/dL (0.2-1.0) Aspartate Amino Transf (AST/SGOT) 170 U/L (15-37) Alanine Aminotransferase (ALT/SGPT) 228 U/L (16-63) Alkaline Phosphatase 64 U/L (46-116) Creatine Kinase 887 U/L (39-308) Total Protein 5.2 g/dL (6.4-8.2) Albumin 2.2 g/dL (3.4-5.0) Albumin/Globulin Ratio 0.7 (1.0-1.7) Test 07/27/19 09:05 Glucose (Fingerstick) 117 mg/dL (70-99) Results All relevant outside records, renal labs, imaging studies, telemetry/EKG's were reviewed. Other Suboptimal positioning limiting optimal evaluation. Stable moderate cardiomegaly. Interstitial edema. JONH PENA MD Jul 27, 2019 11:23
[2019-07-27] MEDS: PANTOPRAZOLE IV PUSH 40 MG VIAL. IVP SCH (11:52)
[2019-07-27 12:05] LABS: FIO2 ABG 40
--- NOTE | 2019-07-27 12:05 | CARD ---
MR#: [id number] Date of Study: 07/27/2019 Ordering Physician: MOSES DAVENPORT, Referring Physician: MOSES DAVENPORT Tech: Noemi Trimble RDCS APPROVED REPORT EXAM: Two-dimensional and M-mode echocardiogram with Doppler and color Doppler. Other Information Quality : AverageHR: 86bpm Rhythm : NSR INDICATION 2D DIMENSIONS Left Atrium(2D)4.2 (1.6-4.0cm)IVSd1.1 (0.7-1.1cm) Aortic Root(2D)2.6 (2.0-3.7cm)LVDd6.1 (3.9-5.9cm) LVOT Diameter2.2 (1.8-2.4cm)PWd1.1 (0.7-1.1cm) LVDs5.5 (2.5-4.0cm)FS (%) 10.0 % SV40.0 mlLVEF(%)21.4 (>50%) Tricuspid Valve TR P. [id number] Peak Gr.49mmHg LEFT VENTRICLE The Left Ventricle is mildly dilated. There is normal left ventricular wall thickness. The ejection f raction is severely impaired. ef 15% There is global hypokinesis of the left ventricle. RIGHT VENTRICLE The right ventricle is normal size. There is normal right ventricular wall thickness. The right ventr icular systolic function is normal. ATRIA The left atrium is mildly dilated. AORTIC VALVE Not well visualized Doppler and Color Flow revealed mild aortic regurgitation. There is no significan t aortic valvular stenosis. MITRAL VALVE The mitral valve is normal in structure and function. There is no evidence of mitral valve prolapse. There is no mitral valve stenosis. Doppler and Color-flow revealed mild to moderate mitral regurgitat ion. TRICUSPID VALVE The tricuspid valve is normal in structure and function. Doppler and Color Flow revealed mild tricusp id regurgitation. The pulmonary artery systolic pressure is estimated at 40-50 mmHg. There is moderat e pulmonary hypertension. There is no tricuspid valve stenosis. GREAT VESSELS The aortic root is normal in size. The IVC was not visualized. PERICARDIAL EFFUSION There is no pleural effusion. There is no evidence of significant pericardial effusion. Critical Notification Critical Value: No <Conclusion> The ejection fraction is severely impaired. ef 15% There is global hypokinesis of the left ventricle. Doppler and Color-flow revealed mild to moderate mitral regurgitation. Doppler and Color Flow revealed mild tricuspid regurgitation. The pulmonary artery systolic pressure is estimated at 40-50 mmHg. There is moderate pulmonary hypertension. Limited study only Signed by : Darci Louis, Electronically Approved : 07/27/2019 12:04:33
--- NOTE | 2019-07-27 13:17 | PDOC ---
PROGRESS NOTES Assessment Assessment Anoxic/hypoxic encephalopathy. Metabolic encephalopathy. Brain , pending further evaluation. S/p Cardiac arrest, downtime estimated > 25 minutes. Respiratory failure. Cardiogenic shock. Lactic acidosis. Renal failure. Leukocytosis. Hypocalcemia. UTI? Poor prognosis. RECOMMENDATIONS/PLAN: HCT w/o contrast. NM brain perfusion study. Received hypothermia therapy on warming up processes. Discussed with his , cousins, and other family members about brain at bedside on 07/27/19. HISTORY OF THE PRESENT ILLNESS: This is a 48-year-old Vietnamese male patient was was admitted in [facility] due to status post cardiopulmonary arrest in [place]. The patient is currently in coma. He collapsed at work at the [employer] on 07/25/19 and he received a prolonged CPR. After 33 minutes, he gained circulation, but no spontaneous breath. PAST MEDICAL HISTORY: Heart disease? HTN. PAST SURGERY HISTORY: No major surgery recently. ALLERGY: Unknown MEDICATIONS: Refer to [facility] HISTORY: Non contributory. SOCIAL HISTORY: Denies smoking and illicit drug use. He drinks alcohol occasionally per reports. REVIEW OF SYSTEMS: Constitutional: Obese. Head: No recent traumatic brain or head injury. Skin: No edema, or rash. Ear: No infection. Eyes: No vision loss or color blindness. Nose: No bleeding or purulent discharges. Hearing: No hearing decrease. Neck: No injury. Cardiac: HTN. Pulmonary: No COPD. GI: No GI ulcer, GI bleeding. Urinary/genital: No dysuria, incontinence, urinary retention. Endocrinologic: Obesity. Skeletomuscular: No muscular atrophy, deformity. Neurological: see HP. Psychiatric: Denies drug use/abuse. Otherwise, not [id number] review of systems. PHYSICAL EXAMINATION: General appearance is in deep coma. HEENT: Normocephalic and nontraumatic. Eyes, nose, ears, and throat are unremarkable. Neck is supple. No lymphadenopathy. No crepitus. Cardiovascular: S1, S2. Pulmonary: On vent. Abdomen: Bowel sounds are not appreciated. Extremities: No rash, lesions. No restriction of range of motion NEUROLOGICAL EXAMINATION: On vent. In deep coma. Not oriented to time, place and person. Pupil 1-2 mm, no reaction to bright light stimuli. Corneal reflex not elicited. Doll's sign not elicited. No gag reflex per nurse. No cough reflex per nurse. EOMI not elicited. CN: no focal findings. Muscle tone: Decreased.. Muscle strength: No movements to stimuli. DTR: 1+ right UE, 0-1 the rest. Plantar reflex: no response bilaterally Gait: not able to walk. Sensory exam: no response to pain stimuli. Not able to access cerebellar signs. F-T-N test not performed due to coma. Objective Objective Vital Signs Date Time Temp Pulse Resp B/P (MAP) Pulse Ox O2 Delivery O2 Flow Rate FiO2 07/27/19 12:57 99 Ventilator 07/27/19 12:00 75 126/79 (95) 07/27/19 11:37 99.7 20 99.7 Intake and Output 07/27/19 07:00 Intake Total 7040 ml Output Total 1160 ml Balance 5880 ml Intake IV Total 7040 ml Output Urine Total 1160 ml Vitals Signs Vitals VS - Last 72 Hours, by Label Date Time Temp Pulse Resp B/P (MAP) Pulse Ox O2 Delivery O2 Flow Rate FiO2 07/27/19 12:57 99 Ventilator 07/27/19 12:00 75 126/79 (95) 07/27/19 12:00 Mechanical Ventilator 07/27/19 11:37 99.7 80 20 90/75 (80) 100 Ventilator 99.7 07/27/19 11:00 99.7 80 20 90/75 100 Ventilator 07/27/19 10:55 100 Ventilator 07/27/19 10:00 98.6 80 20 100/82 99 Ventilator 07/27/19 10:00 98.6 80 20 100/82 (88) 99 Ventilator 98.6 07/27/19 09:00 98.4 80 20 99/74 99 Ventilator 07/27/19 09:00 98.4 80 20 99/74 (82) 99 Ventilator 98.4 07/27/19 08:53 99 Ventilator 07/27/19 08:00 Mechanical Ventilator 07/27/19 08:00 97.9 80 20 103/69 (80) 98 Ventilator 97.9 07/27/19 08:00 97.9 80 20 103/69 98 Ventilator 07/27/19 08:00 80 103/69 (80) 07/27/19 07:00 97.5 80 20 112/69 100 Ventilator 07/27/19 07:00 97.5 80 20 112/69 (83) 100 Ventilator 97.5 07/27/19 06:00 97.0 74 18 110/61 (77) 100 Ventilator 97.0 07/27/19 06:00 97.0 75 20 110/61 100 Ventilator 07/27/19 06:00 99 07/27/19 05:00 96.6 76 20 105/55 (72) 99 Ventilator 96.6 07/27/19 05:00 96.6 77 20 104/77 100 Ventilator 07/27/19 04:52 100 07/27/19 04:22 100 Ventilator 07/27/19 04:00 95.5 77 20 104/63 100 Ventilator 07/27/19 04:00 60 107/58 (74) 07/27/19 04:00 95.5 77 20 107/58 (74) 99 Ventilator 95.5 07/27/19 04:00 Mechanical Ventilator 07/27/19 03:00 95.4 72 20 104/63 100 Ventilator 07/27/19 03:00 95.4 64 18 104/63 (77) 97 Ventilator 95.4 07/27/19 02:14 100 Ventilator 07/27/19 02:00 95.0 72 20 105/59 100 Ventilator 07/27/19 02:00 95.0 72 20 105/59 (74) 98 Ventilator 95.0 07/27/19 01:00 94.5 70 20 112/64 (80) 96 Ventilator 94.5 07/27/19 01:00 94.5 72 20 116/68 100 Ventilator 07/27/19 00:06 100 Ventilator 07/26/19 23:59 93.9 70 20 114/62 (79) 98 Ventilator 93.9 07/26/19 23:59 60 114/62 (79) 07/26/19 23:59 93.9 70 20 114/62 100 Ventilator 07/26/19 23:59 Mechanical Ventilator 07/26/19 23:00 92.7 68 20 113/63 100 Ventilator 07/26/19 23:00 92.7 69 20 113/63 (80) 97 Ventilator 92.7 07/26/19 22:00 92.7 68 20 131/71 100 Ventilator 07/26/19 22:00 92.7 68 20 131/71 (91) 99 Ventilator 92.7 07/26/19 21:44 100 Ventilator 07/26/19 21:03 91.5 61 20 134/78 100 Ventilator 07/26/19 21:03 91.8 65 20 135/76 (95) 99 Ventilator 91.8 07/26/19 20:20 100 Ventilator 07/26/19 20:06 60 132/74 (93) 07/26/19 20:00 91.4 61 20 132/74 100 Ventilator 07/26/19 20:00 Mechanical Ventilator 07/26/19 20:00 91.2 61 20 132/74 (93) 99 Ventilator 91.2 07/26/19 19:00 91.4 63 20 138/74 (95) 99 Ventilator 91.4 07/26/19 19:00 91.4 63 20 138/74 100 Ventilator 07/26/19 18:00 91.9 65 20 103/57 100 Ventilator 07/26/19 17:45 100 Ventilator 07/26/19 17:15 91.9 66 20 123/59 (80) 100 Ventilator 91.9 07/26/19 17:00 91.8 66 20 123/75 100 Ventilator 07/26/19 17:00 91.8 66 20 123/75 (91) 98 Ventilator 91.8 07/26/19 16:45 91.8 66 20 120/64 (82) 98 Ventilator 91.8 07/26/19 16:29 100 Ventilator 07/26/19 16:00 Mechanical Ventilator 07/26/19 16:00 67 134/71 (92) 07/26/19 16:00 91.9 67 20 134/71 (92) 100 Ventilator 91.9 07/26/19 16:00 91.9 67 20 134/71 100 Ventilator 07/26/19 15:00 91.5 67 20 137/73 100 Ventilator 07/26/19 15:00 91.5 67 20 137/73 (94) 99 Ventilator 91.5 07/26/19 14:00 91.6 64 20 129/67 100 Ventilator 07/26/19 14:00 91.6 64 20 129/67 (87) 100 Ventilator 91.6 07/26/19 13:44 100 Ventilator 07/26/19 13:00 91.6 63 19 122/67 100 Ventilator 07/26/19 13:00 91.6 63 20 122/67 (85) 100 Ventilator 91.6 07/26/19 12:00 91.9 63 19 116/85 (95) 100 Ventilator 91.9 07/26/19 12:00 Mechanical Ventilator 07/26/19 12:00 63 116/85 (95) 07/26/19 12:00 91.9 63 19 116/85 100 Ventilator 07/26/19 11:00 91.9 59 19 115/69 100 Ventilator 07/26/19 10:45 91.9 61 20 137/79 (98) 100 Ventilator 91.9 07/26/19 10:43 100 Ventilator 07/26/19 10:00 91.8 59 21 110/74 100 Ventilator 07/26/19 10:00 91.8 59 21 110/74 (86) 100 Ventilator 91.8 07/26/19 09:45 91.4 60 19 110/78 (89) 100 Ventilator 91.4 07/26/19 09:11 100 Ventilator 07/26/19 09:00 91.6 62 19 125/77 100 Ventilator 07/26/19 09:00 91.6 62 19 125/77 (93) 100 Ventilator 91.6 07/26/19 08:22 100 Ventilator 07/26/19 08:04 100 Ventilator 07/26/19 08:00 60 103/65 (78) 07/26/19 08:00 91.8 60 15 103/65 100 Ventilator 07/26/19 08:00 Mechanical Ventilator 07/26/19 08:00 91.8 60 15 103/65 (78) 100 Ventilator 91.8 07/26/19 07:34 14 100 Ventilator 07/26/19 07:00 91.8 62 18 99/64 (76) 100 Ventilator 91.8 07/26/19 07:00 91.8 62 18 99/64 100 Ventilator Laboratory Laboratory Laboratory Tests Test 07/26/19 13:31 07/26/19 14:20 07/26/19 14:21 07/26/19 15:43 Glucose (Fingerstick) 185 mg/dL (70-99) 192 mg/dL (70-99) 172 mg/dL (70-99) White Blood Count 15.6 x10^3/uL (4.0-11.0) Red Blood Count 5.46 x10^6/uL (4.30-5.70) Hemoglobin 15.0 g/dL (13.0-17.5) Hematocrit 46.7 % (39.0-53.0) Mean Corpuscular Volume 86 fL (79-100) Mean Corpuscular Hemoglobin 28 pg (25-35) Mean Corpuscular Hemoglobin Concent 32 g/dL (31-37) Red Cell Distribution Width 14.3 % (11.5-14.5) Platelet Count 100 x10^3/uL (140-400) Neutrophils (%) (Auto) 89 % (31-73) Lymphocytes (%) (Auto) 5 % (24-48) Monocytes (%) (Auto) 6 % (0-9) Eosinophils (%) (Auto) 0 % (0-3) Basophils (%) (Auto) 0 % (0-3) Neutrophils # (Auto) 13.9 x10^3/uL (1.8-7.7) Lymphocytes # (Auto) 0.8 x10^3/uL (1.0-4.8) Monocytes # (Auto) 0.9 x10^3/uL (0.0-1.1) Eosinophils # (Auto) 0.0 x10^3/uL (0.0-0.7) Basophils # (Auto) 0.1 x10^3/uL (0.0-0.2) Prothrombin Time 17.4 SEC (11.7-14.0) Prothromb Time International Ratio 1.5 (0.8-1.1) Activated Partial Thromboplast Time 36 SEC (24-38) Sodium Level 145 mmol/L (136-145) Potassium Level 4.0 mmol/L (3.5-5.1) Chloride Level 112 mmol/L (98-107) Carbon Dioxide Level 17 mmol/L (21-32) Anion Gap 16 (6-14) Blood Urea Nitrogen 31 mg/dL (8-26) Creatinine 2.6 mg/dL (0.7-1.3) Estimated GFR (Cockcroft-Gault) 26.6 Glucose Level 211 mg/dL (70-99) Calcium Level 6.7 mg/dL (8.5-10.1) Phosphorus Level 5.0 mg/dL (2.6-4.7) Magnesium Level 2.7 mg/dL (1.8-2.4) Creatine Kinase 1095 U/L (39-308) Test 07/26/19 17:08 07/26/19 18:03 07/26/19 19:08 07/26/19 20:12 Glucose (Fingerstick) 166 mg/dL (70-99) 153 mg/dL (70-99) 141 mg/dL (70-99) O2 Saturation 94 % (92-99) Arterial Blood pH 7.30 (7.35-7.45) Arterial Blood pH (Temp corrected) 7.36 Arterial Blood pCO2 at Patient Temp 42 mmHg (35-46) Arterial Blood pCO2 (Temp correct) 35 mmHg Arterial Blood pO2 at Patient Temp 70 mmHg (75-108) Arterial Blood pO2 (Temp corrected) 53 mmHg Arterial Blood HCO3 20 mmol/L (21-28) Arterial Blood Base Excess -6 mmol/L (-3-3) FiO2 40 Test 07/26/19 20:16 07/26/19 21:19 07/26/19 22:21 07/26/19 23:26 Glucose (Fingerstick) 137 mg/dL (70-99) 123 mg/dL (70-99) 122 mg/dL (70-99) 76 mg/dL (70-99) Test 07/27/19 01:03 07/27/19 01:54 07/27/19 03:00 07/27/19 05:26 Glucose (Fingerstick) 57 mg/dL (70-99) 194 mg/dL (70-99) 150 mg/dL (70-99) 121 mg/dL (70-99) Test 07/27/19 05:30 07/27/19 07:55 07/27/19 08:50 07/27/19 09:05 White Blood Count 11.5 x10^3/uL (4.0-11.0) Red Blood Count 4.87 x10^6/uL (4.30-5.70) Hemoglobin 13.5 g/dL (13.0-17.5) Hematocrit 40.2 % (39.0-53.0) Mean Corpuscular Volume 83 fL (79-100) Mean Corpuscular Hemoglobin 28 pg (25-35) Mean Corpuscular Hemoglobin Concent 34 g/dL (31-37) Red Cell Distribution Width 14.1 % (11.5-14.5) Platelet Count 96 x10^3/uL (140-400) Neutrophils (%) (Auto) 86 % (31-73) Lymphocytes (%) (Auto) 7 % (24-48) Monocytes (%) (Auto) 6 % (0-9) Eosinophils (%) (Auto) 0 % (0-3) Basophils (%) (Auto) 0 % (0-3) Neutrophils # (Auto) 9.9 x10^3/uL (1.8-7.7) Lymphocytes # (Auto) 0.9 x10^3/uL (1.0-4.8) Monocytes # (Auto) 0.7 x10^3/uL (0.0-1.1) Eosinophils # (Auto) 0.0 x10^3/uL (0.0-0.7) Basophils # (Auto) 0.0 x10^3/uL (0.0-0.2) Prothrombin Time 18.5 SEC (11.7-14.0) Prothromb Time International Ratio 1.6 (0.8-1.1) Sodium Level 145 mmol/L (136-145) Potassium Level 3.4 mmol/L (3.5-5.1) Chloride Level 110 mmol/L (98-107) Carbon Dioxide Level 27 mmol/L (21-32) Anion Gap 8 (6-14) Blood Urea Nitrogen 29 mg/dL (8-26) Creatinine 2.5 mg/dL (0.7-1.3) Estimated GFR (Cockcroft-Gault) 27.8 BUN/Creatinine Ratio 12 (6-20) Glucose Level 138 mg/dL (70-99) Calcium Level 6.7 mg/dL (8.5-10.1) Total Bilirubin 0.4 mg/dL (0.2-1.0) Aspartate Amino Transf (AST/SGOT) 170 U/L (15-37) Alanine Aminotransferase (ALT/SGPT) 228 U/L (16-63) Alkaline Phosphatase 64 U/L (46-116) Creatine Kinase 887 U/L (39-308) Total Protein 5.2 g/dL (6.4-8.2) Albumin 2.2 g/dL (3.4-5.0) Albumin/Globulin Ratio 0.7 (1.0-1.7) Glucose (Fingerstick) 112 mg/dL (70-99) 117 mg/dL (70-99) O2 Saturation 95 % (92-99) Arterial Blood pH 7.43 (7.35-7.45) Arterial Blood pCO2 at Patient Temp 40 mmHg (35-46) Arterial Blood pO2 at Patient Temp 69 mmHg (75-108) Arterial Blood HCO3 26 mmol/L (21-28) Arterial Blood Base Excess 2 mmol/L (-3-3) FiO2 40 Test 07/27/19 11:56 Glucose (Fingerstick) 122 mg/dL (70-99) Microbiology 07/26/19 Blood Culture - Preliminary, Resulted NO GROWTH AFTER 1 DAY Medication Medications Current Medications Daptomycin 400 mg/ Sodium Chloride 50 ml @ 100 mls/hr Q24H IV Last administered on 07/27/19at 10:56; Start 07/27/19 at 10:00 Dextrose (Dextrose 50%-Water Syringe) 25 gm 1X ONCE IV Last administered on 07/27/19at 01:17; Start 07/27/19 at 01:15; Stop 07/27/19 at 01:16; Status DC Meropenem 500 mg/ Sodium Chloride 50 ml @ 100 mls/hr Q12HR IV Last administered on 07/27/19at 09:08; Start 07/27/19 at 09:00 Potassium Bicarbonate (Potassium Effervescent Tablet) 40 meq 1X ONCE PEG ; Start 07/27/19 at 11:00; Stop 07/27/19 at 11:01; Status DC Potassium Bicarbonate (Potassium Effervescent Tablet) 60 meq 1X ONCE PEG Last administered on 07/27/19at 09:20; Start 07/27/19 at 09:00; Stop 07/27/19 at 09:01; Status DC Sodium Bicarbonate 150 meq/Dextrose 1,150 ml @ 125 mls/hr Q9H12M IV Last administered on 07/27/19at 09:09; Start 07/26/19 at 15:00 Comment Review of Relevant I have reviewed the following items talha (where applicable) has been applied. BRITTANI TY MD Jul 27, 2019 13:17
--- NOTE | 2019-07-27 14:12 | RAD ---
CT Head W/O Contrast: History: Cerebral edema status post cardiac arrest Comparison: July 25, 2019 Axial images were obtained without contrast. The rivas and white matter appears normal and symmetrical for the patients age. There is no mass effect, extraaxial fluid collections or hydrocephalus. There is no gross bleed. There is motion artifact. There is loss of rivas-white matter distinction bilaterally however some of this could be secondary to motion. Fluid in the paranasal sinuses was seen present. Impression: Limited study due to motion. There is loss of rivas-white matter distinction which can be secondary to diffuse cerebral edema or ischemia. If this is a real finding this should be accompanied by profound decreased mental status. There is no gross bleed, mass effect or hydrocephalus. End impression PQRS Compliance Statement: One or more of the following individualized dose reduction techniques were utilized for this examination: 1. Automated exposure control 2. Adjustment of the mA and/or kV according to patient size 3. Use of iterative reconstruction technique Electronically signed by: Marvin José III, MD (07/27/2019 2:10 PM) [facility]
[2019-07-27] MEDS: AMIODARONE 450 MG in IV DEXTROSE 5% 250 ML IV PRN (14:27)
--- NOTE | 2019-07-27 16:19 | RAD ---
BRAIN IMG W/ VASCULAR FLOW Clinical Indication: Brain . Patient became unresponsive at work 3 days ago. Comparison: CT head without contrast, earlier same day. TECHNIQUE: Patient is injected with 26 mCi of technetium 99m pertechnetate. Anterior angiographic phase images of the head and neck obtained x2 minutes. Anterior static image of the brain acquired. Findings: Tracer is initially seen in the carotid arteries. Faint tracer is seen in anterior and middle cerebral arteries. Tracer is then seen in the superior sagittal sinus. IMPRESSION: Cerebral blood flow is probably diminished but not absent. Electronically signed by: Ángel Love MD (07/27/2019 4:15 PM) [facility]
--- NOTE | 2019-07-27 17:00 | NUR ---
Family notified of head CT results and brain flow study as directed by Dr. Floyd to this nurse. and immediate family made aware that the brain is swollen and that there is very little blood flow to the brain and the damage to the brain has been done. Explained that the pt will never wake up and would remain in a vegetative state. Family understands the severity of pt's illness. Discussed the option to withdraw care as instructed by Dr. Floyd and code status. Immediate family requests that he remains a full code overnight and they will decide if they want to withdraw care in the am. Family also made aware that an apnea test may be performed sometime tomorrow as well.
[2019-07-28] VITALS (16 sets, daily range): BP systolic 110–186; BP diastolic 47–115
[2019-07-28] MEDS ORDERED: AMIODARONE 450 MG in IV DEXTROSE 5% 250 ML IV PRN (02:45)
[2019-07-28] MEDS ORDERED: fentaNYL PF VIAL 100 MCG/2 ML VIAL IVP PRN (03:45)
--- NOTE | 2019-07-28 03:56 | NUR ---
At 0340, did oral care and suctioned patient, patient then began to be out of sync with the ventilator and became hypertensive. Paged Dr. Camejo, orders received. Will continue to monitor.
[2019-07-28] MEDS: SODIUM BICARBONATE VIAL 150 MEQ in IV DEXTROSE 5% 1,000 ML IV SCH (05:11)
[2019-07-28] MEDS: POLYVINYL ALCOHOL 1.4% OPHTH SOLUTION 15ML BOTTLE. OU SCH ×2 (05:29→12:00)
[2019-07-28 05:55] LABS: CREATININE 2.4 mg/dL (0.7-1.3); GFR 29.2; MAGNESIUM 1.8 mg/dL (1.8-2.4); POTASSIUM 3.4 mmol/L (3.5-5.1)
--- NOTE | 2019-07-28 08:14 | PDOC ---
Infectious Disease Note Subjective: Subjective pt intubated on amiodarone drip and dobutamine drip not responding ROS: ROS unable to obtain Vital Signs: Vital Signs Vital Signs Date Time Temp Pulse Resp B/P (MAP) Pulse Ox O2 Delivery O2 Flow Rate FiO2 07/28/19 06:00 99.3 81 20 137/89 (105) 100 Ventilator 99.3 Physical Exam: PHYSICAL EXAM GENERAL: Well-developed, well-nourished male, intubated. HEENT: Pupil nonreactive, orally intubated. OGT in place.blood stained drainaged in ogt NECK: Supple, no lymphadenopathy. HEART: S1, S2. ABDOMEN: Obese. Bowel sounds present. LUNGS: Decreased breath sound at the bases. EXTREMITIES: trace edema. DERMATOLOGIC: Warm, dry. No generalized rash. CENTRAL NERVOUS SYSTEM: not responding GENITOURINARY: Victoria in place. LINES: Arterial line, right EJ, left femoral , EJ line looks ok, PIV site looks okay. Medications: Inpatient Meds: Current Medications Medications (Trade) Dose Ordered Sig/[facility] Start Time Stop Time Status Last Admin Dose Admin Acetaminophen (Tylenol) 650 mg Q4H 07/25/19 20:00 07/26/19 19:20 DC 07/26/19 17:54 650 MG Amiodarone HCl 450 mg/Dextrose 259 ml @ 17 mls/hr CONT PRN 07/28/19 02:45 07/28/19 05:11 17 MLS/HR Amiodarone HCl 900 mg/Dextrose 518 ml @ 0 mls/hr CONT PRN 07/26/19 08:00 07/26/19 07:55 DC Artificial Tears (Artificial Tears) 1 drop PRN Q15MIN PRN 07/25/19 19:00 07/26/19 20:23 DC Buspirone HCl (Buspar) 30 mg Q8H 07/25/19 20:00 07/26/19 19:20 DC 07/26/19 12:27 30 MG Ceftriaxone Sodium (Rocephin) 1 gm Q24H 07/26/19 06:00 07/27/19 08:17 DC 07/27/19 06:16 1 GM Daptomycin 400 mg/ Sodium Chloride 50 ml @ 100 mls/hr Q24H 07/27/19 10:00 07/27/19 10:56 100 MLS/HR Dextrose (Dextrose 50%-Water Syringe) 25 gm 1X ONCE 07/27/19 01:15 07/27/19 01:16 DC 07/27/19 01:17 25 GM Dobutamine HCl/ Dextrose 250 ml @ 6.566 mls/ hr CONT PRN 07/26/19 06:00 07/27/19 20:09 6.566 MLS/HR Doxycycline Hyclate 100 mg/ Dextrose 100 ml @ 50 mls/hr Q12HR 07/26/19 09:00 07/27/19 20:54 50 MLS/HR Fentanyl Citrate (Fentanyl 2ml Vial) 50 mcg PRN Q1HR PRN 07/28/19 03:45 07/28/19 04:18 50 MCG Heparin Sodium (Porcine) (Heparin Sodium) 5,000 unit BID 07/25/19 21:00 07/27/19 13:48 DC 07/27/19 09:20 5,000 UNIT Hydrocortisone Sodium Succinate (Solu-CORTEF) 100 mg 1X ONCE 07/26/19 01:45 07/26/19 01:46 DC 07/26/19 01:44 100 MG Insulin Human Regular 150 unit/ Sodium Chloride 151.5 ml @ 0 mls/hr CONT PRN 07/26/19 08:15 07/26/19 23:03 4.3 MLS/HR Magnesium Sulfate 50 ml @ 25 mls/hr 1X ONCE 07/26/19 09:45 07/26/19 11:44 DC 07/26/19 10:23 25 MLS/HR Magnesium Sulfate/ Dextrose 100 ml @ 100 mls/hr 1X ONCE 07/25/19 19:30 07/25/19 20:29 DC 07/25/19 19:44 100 MLS/HR Meropenem 500 mg/ Sodium Chloride 50 ml @ 100 mls/hr Q12HR 07/27/19 09:00 07/27/19 20:54 100 MLS/HR Midazolam HCl 100 ml @ 0 mls/hr CONT PRN 07/25/19 20:00 07/26/19 15:44 5 MLS/HR Midazolam HCl (Versed) 2 mg 1X ONCE 07/25/19 19:30 07/25/19 19:31 DC 07/25/19 19:43 2 MG Norepinephrine Bitartrate 250 ml @ 15 mls/hr CONT PRN 07/25/19 19:00 07/26/19 10:22 45 MLS/HR Pantoprazole Sodium (PROTONIX VIAL for IV PUSH) 40 mg DAILY 07/25/19 20:00 07/27/19 11:52 40 MG Potassium Bicarbonate (Potassium Effervescent Tablet) 40 meq 1X ONCE 07/27/19 11:00 07/27/19 11:01 DC Propofol 100 ml @ 0 mls/hr CONT PRN 07/25/19 20:00 Sodium Bicarbonate 150 meq/Dextrose 1,150 ml @ 125 mls/hr Q9H12M 07/26/19 15:00 07/28/19 05:11 125 MLS/HR Sodium Bicarbonate (Sodium Bicarb Adult 8.4% Syr) 50 meq 1X ONCE 07/25/19 20:30 07/25/19 20:31 DC 07/25/19 20:30 50 MEQ Sodium Chloride 1,000 ml @ 1,000 mls/hr 1X ONCE 07/26/19 01:30 07/26/19 02:29 DC 07/26/19 01:30 1,000 MLS/HR Vecuronium [place] (Norcuron Bolus) 8 mg PRN Q1HR PRN 07/25/19 19:00 07/26/19 19:20 DC 07/26/19 17:54 8 MG Labs: Lab Laboratory Tests Test 07/27/19 08:50 07/27/19 09:05 07/27/19 11:56 07/28/19 05:25 O2 Saturation 95 % (92-99) Arterial Blood pH 7.43 (7.35-7.45) Arterial Blood pCO2 at Patient Temp 40 mmHg (35-46) Arterial Blood pO2 at Patient Temp 69 mmHg (75-108) Arterial Blood HCO3 26 mmol/L (21-28) Arterial Blood Base Excess 2 mmol/L (-3-3) FiO2 40 Glucose (Fingerstick) 117 mg/dL (70-99) 122 mg/dL (70-99) Sodium Level 143 mmol/L (136-145) Potassium Level 3.4 mmol/L (3.5-5.1) Chloride Level 104 mmol/L (98-107) Carbon Dioxide Level 31 mmol/L (21-32) Anion Gap 8 (6-14) Blood Urea Nitrogen 32 mg/dL (8-26) Creatinine 2.4 mg/dL (0.7-1.3) Estimated GFR (Cockcroft-Gault) 29.2 Glucose Level 147 mg/dL (70-99) Calcium Level 7.0 mg/dL (8.5-10.1) Magnesium Level 1.8 mg/dL (1.8-2.4) Objective: Assessment: 1. Anoxic/hypoxic encephalopathy.Likely from cardiac arrest, Neuro w/u noted 2. Cardiac arrest on presentation ,status post pulseless electrical activity arrest, cardiac arrhythmia status post epinephrine, CPR, shocks. 3. Leukocytosis, likely reactive.Cult are negative so far 4. Hematuria, pyuria with leukocyte esterase negative. 5. Acute kidney injury with rhabdomyolysis. 6. Thrombocytopenia. 7. Hypocalcemia. 8. Lactic acidosis, multifactorial as above. 9. Bibasilar lung consolidation changes, likely pneumonia or atelectasis or aspiration. 10. Morbid obesity. 11. CT head showed moderate sized left maxillary sinus air fluid level, opacification of the left ethmoid sinus air cells. 12. Large right inguinal hernia containing cecum, appendix and terminal ileum. 13, Hepatic steatosis. 14. Rhabdomyolysis CK improving 15. H/O NICM per staff RECOMMENDATIONS: cont meropenem and daptomycin. Discontinue right femoral line if possible Follow up cultures and lab. Continue supportive care. Condition critical. Prognosis poor. Discussed with cousin at bedside. Discussed with nursing staff. Plan: Plan of Care meropenem and doxycycline cont daptomycin,f/u cpk closely Discontinue right femoral line if possible Follow up cultures and lab. Continue supportive care. Condition critical. Prognosis poor. Discussed with brother and at bedside. Discussed with nursing staff. TOO CEVALLOS MD Jul 28, 2019 08:14
--- NOTE | 2019-07-28 08:30 | NUR ---
Spoke with Dr. Floyd on the phone to request she come talk with the family at the request of the family. states that there is no change in the plan and that she had told the nurse yesterday that we would do the breathing test today and if at any time the family wants to withdraw care then they are able to do that at any time. Explained to the physician that the family wants her to come speak with them before doing the breathing test and physician states that she has already spoken to them and she is not going to keep repeating herself over and over again. I informed the physician that I would let the family know that the plan is the same. Family claim service representative, Pastor Caba, informed of Dr. Floyd's prognosis and plan at this time.
--- NOTE | 2019-07-28 09:13 | PDOC ---
PULMONARY PROGRESS NOTES Subjective PT WITH SIGN OF SEIZURE MARKED ELEVATION OF PEAK PRESSURES Vitals Vital Signs Date Time Temp Pulse Resp B/P (MAP) Pulse Ox O2 Delivery O2 Flow Rate FiO2 07/28/19 08:00 Mechanical Ventilator 07/28/19 08:00 98.8 87 23 100 Comments Lungs: Crackles Cardiovascular: S1, S2 Abdomen: Soft, Non-tender, Other (no mass) Extremities: Other (edema) Skin: Warm Labs Laboratory Tests Test 07/26/19 10:00 07/26/19 10:05 07/26/19 11:12 07/26/19 12:17 Lactic Acid Level 9.9 mmol/L (0.4-2.0) Glucose (Fingerstick) 249 mg/dL (70-99) 266 mg/dL (70-99) 199 mg/dL (70-99) Test 07/26/19 13:31 07/26/19 14:20 07/26/19 14:21 07/26/19 15:43 Glucose (Fingerstick) 185 mg/dL (70-99) 192 mg/dL (70-99) 172 mg/dL (70-99) White Blood Count 15.6 x10^3/uL (4.0-11.0) Red Blood Count 5.46 x10^6/uL (4.30-5.70) Hemoglobin 15.0 g/dL (13.0-17.5) Hematocrit 46.7 % (39.0-53.0) Mean Corpuscular Volume 86 fL (79-100) Mean Corpuscular Hemoglobin 28 pg (25-35) Mean Corpuscular Hemoglobin Concent 32 g/dL (31-37) Red Cell Distribution Width 14.3 % (11.5-14.5) Platelet Count 100 x10^3/uL (140-400) Neutrophils (%) (Auto) 89 % (31-73) Lymphocytes (%) (Auto) 5 % (24-48) Monocytes (%) (Auto) 6 % (0-9) Eosinophils (%) (Auto) 0 % (0-3) Basophils (%) (Auto) 0 % (0-3) Neutrophils # (Auto) 13.9 x10^3/uL (1.8-7.7) Lymphocytes # (Auto) 0.8 x10^3/uL (1.0-4.8) Monocytes # (Auto) 0.9 x10^3/uL (0.0-1.1) Eosinophils # (Auto) 0.0 x10^3/uL (0.0-0.7) Basophils # (Auto) 0.1 x10^3/uL (0.0-0.2) Prothrombin Time 17.4 SEC (11.7-14.0) Prothromb Time International Ratio 1.5 (0.8-1.1) Activated Partial Thromboplast Time 36 SEC (24-38) Sodium Level 145 mmol/L (136-145) Potassium Level 4.0 mmol/L (3.5-5.1) Chloride Level 112 mmol/L (98-107) Carbon Dioxide Level 17 mmol/L (21-32) Anion Gap 16 (6-14) Blood Urea Nitrogen 31 mg/dL (8-26) Creatinine 2.6 mg/dL (0.7-1.3) Estimated GFR (Cockcroft-Gault) 26.6 Glucose Level 211 mg/dL (70-99) Calcium Level 6.7 mg/dL (8.5-10.1) Phosphorus Level 5.0 mg/dL (2.6-4.7) Magnesium Level 2.7 mg/dL (1.8-2.4) Creatine Kinase 1095 U/L (39-308) Test 07/26/19 17:08 07/26/19 18:03 07/26/19 19:08 07/26/19 20:12 Glucose (Fingerstick) 166 mg/dL (70-99) 153 mg/dL (70-99) 141 mg/dL (70-99) O2 Saturation 94 % (92-99) Arterial Blood pH 7.30 (7.35-7.45) Arterial Blood pH (Temp corrected) 7.36 Arterial Blood pCO2 at Patient Temp 42 mmHg (35-46) Arterial Blood pCO2 (Temp correct) 35 mmHg Arterial Blood pO2 at Patient Temp 70 mmHg (75-108) Arterial Blood pO2 (Temp corrected) 53 mmHg Arterial Blood HCO3 20 mmol/L (21-28) Arterial Blood Base Excess -6 mmol/L (-3-3) FiO2 40 Test 07/26/19 20:16 07/26/19 21:19 07/26/19 22:21 07/26/19 23:26 Glucose (Fingerstick) 137 mg/dL (70-99) 123 mg/dL (70-99) 122 mg/dL (70-99) 76 mg/dL (70-99) Test 07/27/19 01:03 07/27/19 01:54 07/27/19 03:00 07/27/19 05:26 Glucose (Fingerstick) 57 mg/dL (70-99) 194 mg/dL (70-99) 150 mg/dL (70-99) 121 mg/dL (70-99) Test 07/27/19 05:30 07/27/19 07:55 07/27/19 08:50 07/27/19 09:05 White Blood Count 11.5 x10^3/uL (4.0-11.0) Red Blood Count 4.87 x10^6/uL (4.30-5.70) Hemoglobin 13.5 g/dL (13.0-17.5) Hematocrit 40.2 % (39.0-53.0) Mean Corpuscular Volume 83 fL (79-100) Mean Corpuscular Hemoglobin 28 pg (25-35) Mean Corpuscular Hemoglobin Concent 34 g/dL (31-37) Red Cell Distribution Width 14.1 % (11.5-14.5) Platelet Count 96 x10^3/uL (140-400) Neutrophils (%) (Auto) 86 % (31-73) Lymphocytes (%) (Auto) 7 % (24-48) Monocytes (%) (Auto) 6 % (0-9) Eosinophils (%) (Auto) 0 % (0-3) Basophils (%) (Auto) 0 % (0-3) Neutrophils # (Auto) 9.9 x10^3/uL (1.8-7.7) Lymphocytes # (Auto) 0.9 x10^3/uL (1.0-4.8) Monocytes # (Auto) 0.7 x10^3/uL (0.0-1.1) Eosinophils # (Auto) 0.0 x10^3/uL (0.0-0.7) Basophils # (Auto) 0.0 x10^3/uL (0.0-0.2) Prothrombin Time 18.5 SEC (11.7-14.0) Prothromb Time International Ratio 1.6 (0.8-1.1) Sodium Level 145 mmol/L (136-145) Potassium Level 3.4 mmol/L (3.5-5.1) Chloride Level 110 mmol/L (98-107) Carbon Dioxide Level 27 mmol/L (21-32) Anion Gap 8 (6-14) Blood Urea Nitrogen 29 mg/dL (8-26) Creatinine 2.5 mg/dL (0.7-1.3) Estimated GFR (Cockcroft-Gault) 27.8 BUN/Creatinine Ratio 12 (6-20) Glucose Level 138 mg/dL (70-99) Calcium Level 6.7 mg/dL (8.5-10.1) Total Bilirubin 0.4 mg/dL (0.2-1.0) Aspartate Amino Transf (AST/SGOT) 170 U/L (15-37) Alanine Aminotransferase (ALT/SGPT) 228 U/L (16-63) Alkaline Phosphatase 64 U/L (46-116) Creatine Kinase 887 U/L (39-308) Total Protein 5.2 g/dL (6.4-8.2) Albumin 2.2 g/dL (3.4-5.0) Albumin/Globulin Ratio 0.7 (1.0-1.7) Glucose (Fingerstick) 112 mg/dL (70-99) 117 mg/dL (70-99) O2 Saturation 95 % (92-99) Arterial Blood pH 7.43 (7.35-7.45) Arterial Blood pCO2 at Patient Temp 40 mmHg (35-46) Arterial Blood pO2 at Patient Temp 69 mmHg (75-108) Arterial Blood HCO3 26 mmol/L (21-28) Arterial Blood Base Excess 2 mmol/L (-3-3) FiO2 40 Test 07/27/19 11:56 07/28/19 05:25 Glucose (Fingerstick) 122 mg/dL (70-99) Sodium Level 143 mmol/L (136-145) Potassium Level 3.4 mmol/L (3.5-5.1) Chloride Level 104 mmol/L (98-107) Carbon Dioxide Level 31 mmol/L (21-32) Anion Gap 8 (6-14) Blood Urea Nitrogen 32 mg/dL (8-26) Creatinine 2.4 mg/dL (0.7-1.3) Estimated GFR (Cockcroft-Gault) 29.2 Glucose Level 147 mg/dL (70-99) Calcium Level 7.0 mg/dL (8.5-10.1) Magnesium Level 1.8 mg/dL (1.8-2.4) Laboratory Tests Test 07/27/19 11:56 07/28/19 05:25 Glucose (Fingerstick) 122 mg/dL (70-99) Sodium Level 143 mmol/L (136-145) Potassium Level 3.4 mmol/L (3.5-5.1) Chloride Level 104 mmol/L (98-107) Carbon Dioxide Level 31 mmol/L (21-32) Anion Gap 8 (6-14) Blood Urea Nitrogen 32 mg/dL (8-26) Creatinine 2.4 mg/dL (0.7-1.3) Estimated GFR (Cockcroft-Gault) 29.2 Glucose Level 147 mg/dL (70-99) Calcium Level 7.0 mg/dL (8.5-10.1) Magnesium Level 1.8 mg/dL (1.8-2.4) Impression . IMPRESSION: 1. Acute respiratory failure secondary to cardiopulmonary arrest, 2. Status post cardiopulmonary arrest, OUT OF HOSPITAL SEC TO ARRHYTHMIAS 3. Abnormal CT of the chest. 4. Acute kidney injury. 5. Hypotension/CARDIOGENIC SHOCK CM 15%EF 6. Lactic acidosis. 7. Anoxic encephalopathy BRAIN EDEMA SEE CEREBRAL BLOOD FLOW 8. SEIZURES IMPRESSION: Cerebral blood flow is probably diminished but not absent. Plan . 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
--- NOTE | 2019-07-28 09:19 | PDOC ---
SUBJECTIVE ROS Intubated OBJECTIVE Vital Signs Vital Signs Date Time Temp Pulse Resp B/P (MAP) Pulse Ox O2 Delivery O2 Flow Rate FiO2 07/28/19 08:00 Mechanical Ventilator 07/28/19 08:00 98.8 87 23 100 I & 0 Intake and Output 07/28/19 07:00 Intake Total 1856 ml Output Total 515 ml Balance 1341 ml Intake IV Total 1856 ml Output Urine Total 515 ml PHYSICAL EXAM Physical Exam General: Intubated ,unresponsive HEENT: Intubated Neck Supple Lungs: Clear to auscultation, Heart: S1S2, no murmurs, irregularly irregular Abdomen: Soft Extremities: No clubbing, No cyanosis, No edema, Skin: No rashes, No breakdown Neuro: per neurologist WILMAR Victoria + DIAGNOSIS/ASSESSMENT Assessment & Plan FABIAN -cardiac arrest in field,PEA arrest, non Oliguric s/p CPR and shocks, Renal function stable , 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 Probable ARDS/septic shock? Pulm Infiltrates on CT chest ID consulted Ac Resp failute, Intubated, On MV, Off sedation Hypernatremia - resolved Metabolic acidosis - Resolved DC IV bicarb History of nonischemic cardiomyopathy at [facility],cardiac catheterization was done, which was negative. A repeat echo showed improvement in his ejection fraction. Cardiology following Anoxic/hypoxic encephalopathy- Neurology following COMMENT/RELEVANT DATA Meds Current Medications Medications (Trade) Dose Ordered Sig/Rosi Start Time Stop Time Status Last Admin Dose Admin Acetaminophen (Tylenol) 650 mg Q4H 07/25/19 20:00 07/26/19 19:20 DC 07/26/19 17:54 650 MG Amiodarone HCl 450 mg/Dextrose 259 ml @ 17 mls/hr CONT PRN 07/28/19 02:45 07/28/19 05:11 17 MLS/HR Amiodarone HCl 900 mg/Dextrose 518 ml @ 0 mls/hr CONT PRN 07/26/19 08:00 07/26/19 07:55 DC Artificial Tears (Artificial Tears) 1 drop PRN Q15MIN PRN 07/25/19 19:00 07/26/19 20:23 DC Buspirone HCl (Buspar) 30 mg Q8H 07/25/19 20:00 10/19/19 19:20 DC 07/26/19 12:27 30 MG Ceftriaxone Sodium (Rocephin) 1 gm Q24H 07/26/19 06:00 07/27/19 08:17 DC 07/27/19 06:16 1 GM Daptomycin 400 mg/ Sodium Chloride 50 ml @ 100 mls/hr Q24H 07/27/19 10:00 07/27/19 10:56 100 MLS/HR Dextrose (Dextrose 50%-Water Syringe) 25 gm 1X ONCE 07/27/19 01:15 07/27/19 01:16 DC 07/27/19 01:17 25 GM Dobutamine HCl/ Dextrose 250 ml @ 6.566 mls/ hr CONT PRN 07/26/19 06:00 07/27/19 20:09 6.566 MLS/HR Doxycycline Hyclate 100 mg/ Dextrose 100 ml @ 50 mls/hr Q12HR 07/26/19 09:00 07/27/19 20:54 50 MLS/HR Fentanyl Citrate (Fentanyl 2ml Vial) 50 mcg PRN Q1HR PRN 07/28/19 03:45 07/28/19 04:18 50 MCG Heparin Sodium (Porcine) (Heparin Sodium) 5,000 unit BID 07/25/19 21:00 07/27/19 13:48 DC 07/27/19 09:20 5,000 UNIT Hydrocortisone Sodium Succinate (Solu-CORTEF) 100 mg 1X ONCE 07/26/19 01:45 07/26/19 01:46 DC 07/26/19 01:44 100 MG Insulin Human Regular 150 unit/ Sodium Chloride 151.5 ml @ 0 mls/hr CONT PRN 07/26/19 08:15 07/26/19 23:03 4.3 MLS/HR Magnesium Sulfate 50 ml @ 25 mls/hr 1X ONCE 07/26/19 09:45 07/26/19 11:44 DC 07/26/19 10:23 25 MLS/HR Magnesium Sulfate/ Dextrose 100 ml @ 100 mls/hr 1X ONCE 07/25/19 19:30 07/25/19 20:29 DC 07/25/19 19:44 100 MLS/HR Meropenem 500 mg/ Sodium Chloride 50 ml @ 100 mls/hr Q12HR 07/27/19 09:00 07/27/19 20:54 100 MLS/HR Midazolam HCl 100 ml @ 0 mls/hr CONT PRN 07/25/19 20:00 07/26/19 15:44 5 MLS/HR Midazolam HCl (Versed) 2 mg 1X ONCE 07/25/19 19:30 07/25/19 19:31 DC 07/25/19 19:43 2 MG Norepinephrine Bitartrate 250 ml @ 15 mls/hr CONT PRN 07/25/19 19:00 07/26/19 10:22 45 MLS/HR Pantoprazole Sodium (PROTONIX VIAL for IV PUSH) 40 mg DAILY 07/25/19 20:00 07/27/19 11:52 40 MG Potassium Bicarbonate (Potassium Effervescent Tablet) 40 meq 1X ONCE 07/27/19 11:00 07/27/19 11:01 DC Propofol 100 ml @ 0 mls/hr CONT PRN 07/25/19 20:00 Sodium Bicarbonate 150 meq/Dextrose 1,150 ml @ 125 mls/hr Q9H12M 07/26/19 15:00 07/28/19 05:11 125 MLS/HR Sodium Bicarbonate (Sodium Bicarb Adult 8.4% Syr) 50 meq 1X ONCE 07/25/19 20:30 07/25/19 20:31 DC 07/25/19 20:30 50 MEQ Sodium Chloride 1,000 ml @ 1,000 mls/hr 1X ONCE 07/26/19 01:30 07/26/19 02:29 DC 07/26/19 01:30 1,000 MLS/HR Vecuronium [place] (Norcuron Bolus) 8 mg PRN Q1HR PRN 07/25/19 19:00 07/26/19 19:20 DC 07/26/19 17:54 8 MG Lab Laboratory Tests Test 07/27/19 11:56 07/28/19 05:25 Glucose (Fingerstick) 122 mg/dL (70-99) Sodium Level 143 mmol/L (136-145) Potassium Level 3.4 mmol/L (3.5-5.1) Chloride Level 104 mmol/L (98-107) Carbon Dioxide Level 31 mmol/L (21-32) Anion Gap 8 (6-14) Blood Urea Nitrogen 32 mg/dL (8-26) Creatinine 2.4 mg/dL (0.7-1.3) Estimated GFR (Cockcroft-Gault) 29.2 Glucose Level 147 mg/dL (70-99) Calcium Level 7.0 mg/dL (8.5-10.1) Magnesium Level 1.8 mg/dL (1.8-2.4) Results All relevant outside records, renal labs, imaging studies, telemetry/EKG's were reviewed. JONH PENA MD Jul 28, 2019 09:19
[2019-07-28] MEDS: MEROPENEM 500 MG in IV NORMAL SALINE 50ML 50 ML IV SCH (09:53)
[2019-07-28] MEDS: DOXYCYCLINE HYCLATE 100 MG in IV DEXTROSE 5% 100ML 100 ML IV SCH (09:53)
[2019-07-28] MEDS: PANTOPRAZOLE IV PUSH 40 MG VIAL. IVP SCH (09:54)
[2019-07-28 10:56] LABS: BARBITURATES NEG (NEG); BENZODIAZEPINES POS (NEG); CANNABINOIDS NEG (NEG); COCAINE NEG (NEG); METHADONE NEG (NEG); OPIATES NEG (NEG); PHENCYCLIDINE NEG (NEG)
[2019-07-28 11:01] LABS: AMPHETAMINE/METHAMPHETAMINE NEG (NEG)
--- NOTE | 2019-07-28 11:10 | PDOC ---
CARDIO Progress Notes Date and Time Date of Service 07/28/19 Time of Evaluation 1105 Subjective Subjective: Other (nonresponsive ) Vitals Vitals Vital Signs Date Time Temp Pulse Resp B/P (MAP) Pulse Ox O2 Delivery O2 Flow Rate FiO2 07/28/19 10:00 100.0 90 30 160/94 (116) 100 Ventilator 100.0 Weight Weight [ ] Input and Output Intake and Output Intake and Output 07/28/19 07:00 Intake Total 1856 ml Output Total 515 ml Balance 1341 ml Intake IV Total 1856 ml Output Urine Total 515 ml Laboratory Labs Laboratory Tests Test 07/27/19 11:56 07/28/19 05:25 07/28/19 10:25 Glucose (Fingerstick) 122 mg/dL (70-99) Sodium Level 143 mmol/L (136-145) Potassium Level 3.4 mmol/L (3.5-5.1) Chloride Level 104 mmol/L (98-107) Carbon Dioxide Level 31 mmol/L (21-32) Anion Gap 8 (6-14) Blood Urea Nitrogen 32 mg/dL (8-26) Creatinine 2.4 mg/dL (0.7-1.3) Estimated GFR (Cockcroft-Gault) 29.2 Glucose Level 147 mg/dL (70-99) Calcium Level 7.0 mg/dL (8.5-10.1) Magnesium Level 1.8 mg/dL (1.8-2.4) Urine Opiates Screen Neg (NEG) Urine Methadone Screen Neg (NEG) Urine Barbiturates Neg (NEG) Urine Phencyclidine Screen Neg (NEG) Urine Amphetamine/Methamphetamine Neg (NEG) Urine Benzodiazepines Screen Pos (NEG) Urine Cocaine Screen Neg (NEG) Urine Cannabinoids Screen Neg (NEG) Urine Ethyl Alcohol Neg (NEG) Microbiology Micro Microbiology 07/26/19 Blood Culture - Preliminary, Resulted NO GROWTH AFTER 2 DAYS Physical Exam HEENT: Other (intubation) Chest: Symmetric LUNGS: Other (mechanical vent ) Heart: S1S2, other (SR with frequent PAC's and PVCs. distant heart tones) Abdomen: Other (soft, obese ) Extremities: No Edema Neurology: other (nonresponsive ) Assessment Assessment 1. Cardiac arrest, PEA; > 30 minutes until ROSC. Hypothermia protocol. On am iodarone gtt 2. Acute respiratory failure secondary to above. s/p intubation 3. Severe CMP; LVEF 15% 4. Cardiac shock; off pressor support 5. Encephalopathy; anoxic/hypoxic, metabolic. Non-responsive off sedation. Myoclonus noted today 6. FABIAN 7. Hypokalemia Recommendations Prognosis poor Supportive care No further cardiac intervention warranted given significant encephalopthy. GRICEL DELGADO APRN Jul 28, 2019 11:10
[2019-07-28] MEDS ORDERED: IV NORMAL SALINE 1000ML BAG 1,000 ML IV SCH ×2 (11:30→13:42)
[2019-07-28] MEDS: DAPTOmycin (GENERIC) IVPB 400 MG in IV NORMAL SALINE 50ML 50 ML IV SCH (12:26)
[2019-07-28] MEDS ORDERED: levETIRAcetam 500 MG in IV DEXTROSE 5% 100ML 100 ML IV SCH (13:00)
[2019-07-28] MEDS ORDERED: MORPHINE SULFATE/PF 30 ML IV PRN (13:45)
[2019-07-28] MEDS ORDERED: NALOXONE 0.4 MG/ML VIAL. IV PRN (13:45)
--- NOTE | 2019-07-28 13:58 | PDOC ---
PROGRESS NOTES Assessment Assessment Anoxic/hypoxic encephalopathy. Metabolic encephalopathy. S/p Cardiac arrest, downtime estimated > 25 minutes. Respiratory failure. Cardiogenic shock. Lactic acidosis. Cerebral edema. 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 CHF EF 15%. Pulmonary A hypertension. GI bleeding. Renal failure. Leukocytosis. Hypocalcemia. FABIAN. Poor prognosis. RECOMMENDATIONS/PLAN: Keppra 1000 mg IV q12h. Received hypothermia therapy. Lift support in ICU per family's request. Discussed with his , brother and cousins for 1 hour about poor prognosis at bedside in ICU on 07/28/19. HISTORY OF THE PRESENT ILLNESS: This is a 48-year-old [place] male patient was was admitted in [facility] due to status post cardiopulmonary arrest. The patient is currently in coma. He collapsed at work at the [employer] on 07/25/19 and he received a prolonged CPR. After 33 minutes, he gained circulation, but no spontaneous breath. He was intubated but remained in coma since being here. PAST MEDICAL HISTORY: Heart disease? HTN. PAST SURGERY HISTORY: No major surgery recently. ALLERGY: Unknown MEDICATIONS: Refer to [facility] FAMILY HISTORY: Non contributory. SOCIAL HISTORY: Denies smoking and illicit drug use. He drinks alcohol occasionally per reports. REVIEW OF SYSTEMS: Constitutional: Obese. Head: No recent traumatic brain or head injury. Skin: No edema, or rash. Ear: No infection. Eyes: No vision loss or color blindness. Nose: No bleeding or purulent discharges. Hearing: No hearing decrease. Neck: No injury. Cardiac: HTN. Pulmonary: No COPD. GI: No GI ulcer, GI bleeding. Urinary/genital: No dysuria, incontinence, urinary retention. Endocrinologic: Obesity. Skeletomuscular: No muscular atrophy, deformity. Neurological: see HP. Psychiatric: Denies drug use/abuse. Otherwise, not -oupit review of systems. PHYSICAL EXAMINATION: General appearance is in deep coma. HEENT: Normocephalic and nontraumatic. Eyes, nose, ears, and throat are unremarkable. Neck is supple. No lymphadenopathy. No crepitus. Cardiovascular: S1, S2. Pulmonary: On vent. Abdomen: Bowel sounds are not appreciated. Extremities: No rash, lesions. No restriction of range of motion NEUROLOGICAL EXAMINATION: On vent. In deep coma. Not oriented to time, place and person. Pupil 1-2 mm, no reaction to bright light stimuli. Sclera edema bilaterally. Corneal reflex not elicited. Doll's sign not elicited. Minimal gag reflex elicited today on 07/28/19.. No cough reflex per nurse. EOMI not elicited. CN: no focal findings. Muscle tone: Decreased.. Muscle strength: No movements to stimuli. DTR: 1 right UE, 0-1 the rest. Plantar reflex: no response bilaterally Gait: not able to walk. Sensory exam: no response to pain stimuli. Not able to access cerebellar signs. F-T-N test not performed due to coma. Objective Objective Vital Signs Date Time Temp Pulse Resp B/P (MAP) Pulse Ox O2 Delivery O2 Flow Rate FiO2 07/28/19 13:00 99.5 92 34 161/115 (130) 100 Ventilator 99.5 Intake and Output 07/28/19 07:00 Intake Total 1856 ml Output Total 515 ml Balance 1341 ml Intake IV Total 1856 ml Output Urine Total 515 ml Vitals Signs Vitals VS - Last 72 Hours, by Label Date Time Temp Pulse Resp B/P (MAP) Pulse Ox O2 Delivery O2 Flow Rate FiO2 07/28/19 13:00 99.5 92 34 161/115 (130) 100 Ventilator 99.5 07/28/19 12:00 98.8 87 23 100 Ventilator 07/28/19 12:00 99.9 93 30 165/98 (120) 100 Ventilator 99.9 07/28/19 12:00 Mechanical Ventilator 07/28/19 12:00 181/107 (131) 07/28/19 11:00 99.7 94 30 186/99 (128) 100 Ventilator 99.7 07/28/19 10:00 100.0 90 30 160/94 (116) 100 Ventilator 100.0 07/28/19 08:00 Mechanical Ventilator 07/28/19 08:00 98.8 87 23 100 Ventilator 07/28/19 08:00 100 Ventilator 07/28/19 08:00 100.0 84 28 166/88 (114) 100 Ventilator 100.0 07/28/19 08:00 177/106 (129) 07/28/19 07:00 99.7 97 23 177/106 (129) 100 Ventilator 99.7 07/28/19 06:00 99.3 81 20 137/89 (105) 100 Ventilator 99.3 07/28/19 05:00 99.1 85 20 123/89 (100) 100 Ventilator 99.1 07/28/19 04:55 100 Ventilator 07/28/19 04:00 07/28/19 04:00 99.3 97 20 158/82 (107) 100 Ventilator 99.3 07/28/19 03:51 Mechanical Ventilator 07/28/19 03:51 99.3 07/28/19 03:00 99.4 85 20 125/75 (92) 100 Ventilator 99.4 07/28/19 02:30 100 Ventilator 07/28/19 02:00 99.5 83 20 154/90 (111) 100 Ventilator 99.5 07/28/19 01:00 99.1 84 20 142/91 (108) 100 Ventilator 99.1 07/28/19 00:31 100 Ventilator 07/28/19 00:00 99.0 90 20 154/94 (114) 100 Ventilator 99.0 07/28/19 00:00 07/27/19 23:46 98.8 07/27/19 23:44 Mechanical Ventilator 07/27/19 23:00 98.8 84 20 132/88 (103) 100 Ventilator 98.8 07/27/19 22:00 99.0 87 20 125/89 (101) 100 Ventilator 99.0 07/27/19 21:00 99.0 79 20 133/75 (94) 100 Ventilator 99.0 07/27/19 20:31 100 Ventilator 07/27/19 20:00 98.8 77 20 121/95 (104) 100 Ventilator 98.8 07/27/19 20:00 Mechanical Ventilator 07/27/19 20:00 98.8 07/27/19 20:00 07/27/19 19:00 98.8 90 20 125/84 (98) 100 Ventilator 98.8 07/27/19 18:00 99.0 78 20 144/94 100 Ventilator 07/27/19 18:00 99.0 78 20 144/94 (111) 100 Ventilator 99.0 07/27/19 17:00 99.1 72 20 143/92 100 Ventilator 07/27/19 17:00 99.1 72 20 143/92 (109) 100 Ventilator 99.1 07/27/19 16:44 100 Ventilator 07/27/19 16:00 99.3 78 20 147/90 100 Ventilator 07/27/19 16:00 63 137/54 (81) 07/27/19 16:00 Mechanical Ventilator 07/27/19 16:00 99.3 78 27 148/98 (115) 100 Ventilator 99.3 07/27/19 15:00 99.7 78 20 147/90 (109) 100 Ventilator 99.7 07/27/19 15:00 99.7 78 20 147/90 100 Ventilator 07/27/19 14:50 99 Ventilator 07/27/19 14:00 99.7 79 20 154/79 100 Ventilator 07/27/19 14:00 99.7 79 20 154/92 (112) 100 Ventilator 99.7 07/27/19 13:00 07/27/19 13:00 99.3 75 20 111/87 (95) 99 Ventilator 99.3 07/27/19 12:57 99 Ventilator 07/27/19 12:00 75 126/79 (95) 07/27/19 12:00 Mechanical Ventilator 07/27/19 12:00 99.3 80 20 90/75 100 Ventilator 07/27/19 12:00 99.3 75 20 126/79 (95) 99 Ventilator 99.3 07/27/19 11:37 99.7 80 20 90/75 (80) 100 Ventilator 99.7 07/27/19 11:00 99.7 80 20 90/75 100 Ventilator 07/27/19 10:55 100 Ventilator 07/27/19 10:00 98.6 80 20 100/82 99 Ventilator 07/27/19 10:00 98.6 80 20 100/82 (88) 99 Ventilator 98.6 07/27/19 09:00 98.4 80 20 99/74 99 Ventilator 07/27/19 09:00 98.4 80 20 99/74 (82) 99 Ventilator 98.4 07/27/19 08:53 99 Ventilator 07/27/19 08:00 Mechanical Ventilator 07/27/19 08:00 97.9 80 20 103/69 (80) 98 Ventilator 97.9 07/27/19 08:00 97.9 80 20 103/69 98 Ventilator 07/27/19 08:00 80 103/69 (80) 07/27/19 07:00 97.5 80 20 112/69 100 Ventilator 07/27/19 07:00 97.5 80 20 112/69 (83) 100 Ventilator 97.5 Laboratory Laboratory Laboratory Tests Test 07/28/19 05:25 07/28/19 10:25 Sodium Level 143 mmol/L (136-145) Potassium Level 3.4 mmol/L (3.5-5.1) Chloride Level 104 mmol/L (98-107) Carbon Dioxide Level 31 mmol/L (21-32) Anion Gap 8 (6-14) Blood Urea Nitrogen 32 mg/dL (8-26) Creatinine 2.4 mg/dL (0.7-1.3) Estimated GFR (Cockcroft-Gault) 29.2 Glucose Level 147 mg/dL (70-99) Calcium Level 7.0 mg/dL (8.5-10.1) Magnesium Level 1.8 mg/dL (1.8-2.4) Urine Opiates Screen Neg (NEG) Urine Methadone Screen Neg (NEG) Urine Barbiturates Neg (NEG) Urine Phencyclidine Screen Neg (NEG) Urine Amphetamine/Methamphetamine Neg (NEG) Urine Benzodiazepines Screen Pos (NEG) Urine Cocaine Screen Neg (NEG) Urine Cannabinoids Screen Neg (NEG) Urine Ethyl Alcohol Neg (NEG) Microbiology 07/26/19 Blood Culture - Preliminary, Resulted NO GROWTH AFTER 2 DAYS Medication Medications Current Medications Amiodarone HCl 450 mg/Dextrose 259 ml @ 17 mls/hr CONT PRN IV SEE I/O RECORD Last administered on 07/28/19at 05:11; Start 07/28/19 at 02:45 Fentanyl Citrate (Fentanyl 2ml Vial) 50 mcg PRN Q1HR PRN IVP PAIN Last administered on 07/28/19at 04:18; Start 07/28/19 at 03:45 Levetiracetam 1000 mg/Dextrose 110 ml @ 420 mls/hr Q12HR IV ; Start 07/28/19 at 21:00; Status UNV Levetiracetam 500 mg/Dextrose 105 ml @ 420 mls/hr Q12HR IV Last administered on 07/28/19at 13:36; Start 07/28/19 at 13:00; Stop 07/28/19 at 13:42; Status DC Sodium Chloride 1,000 ml @ 75 mls/hr [id number] IV Last administered on 07/28/19at 12:28; Start 07/28/19 at 11:30 Comment Review of Relevant I have reviewed the following items talha (where applicable) has been applied. BRITTANI TY MD Jul 28, 2019 13:58
--- NOTE | 2019-07-28 14:00 | NUR ---
Polly at [facility] notified that the family has decided to withdraw ventilator. Will notify again once cardiac occurs. Addendum: 07/28/19 at 1510 by YON CARSON RN Amended: Links added.
--- NOTE | 2019-07-28 14:57 | PDOC ---
PROGRESS NOTES Chief Complaint Chief Complaint acute metabolic encephalopahty cardiac arrest in field PEA arrest higher concern now for permanent neurological injury, poorly responsive, cardiac arrhythmia HX Of htn and unknown cardiac condition per family tobacco use disorder, obese, BMI 37 leukocytosis, lactic acidosis, abx given, cx pending, unknown source, s/p CPR and shocks on amio, is getting cooling protocol History of Present Illness History of Present Illness WIll do breathing trial today brain reflexes are not working , pupils are very small, dolls eye pathology, no gag on my suction exam neuro following I discussd poor prognosis at length, permanent brain damage, and possible brain if he fails to breathe on his own time > 30 min in family meeting alone, apart from exam x2 Vitals Vitals Vital Signs Date Time Temp Pulse Resp B/P (MAP) Pulse Ox O2 Delivery O2 Flow Rate FiO2 07/28/19 14:15 42 07/28/19 13:39 100 Ventilator 07/28/19 13:00 99.5 92 161/115 (130) 99.5 Physical Exam Physical Exam GENERAL: Well-developed, well-nourished male, intubated. HEENT: Pupil nonreactive, orally intubated. OGT in place.blood stained drainaged in ogt NECK: Supple, no lymphadenopathy. HEART: S1, S2. ABDOMEN: Obese. Bowel sounds present. LUNGS: Decreased breath sound at the bases. EXTREMITIES: trace edema. DERMATOLOGIC: Warm, dry. No generalized rash. CENTRAL NERVOUS SYSTEM: not responding GENITOURINARY: [place] in place. LINES: Arterial line, right EJ, left femoral , EJ line looks ok, PIV site looks okay. General: Alert, Oriented X3, No acute distress, Other Heart: Regular rate, Normal S1 Lungs: Crackles Abdomen: Soft Extremities: No clubbing, No cyanosis, No edema, Normal pulses Skin: No rashes, No breakdown Labs LABS Laboratory Tests Test 07/28/19 05:25 07/28/19 10:25 Sodium Level 143 mmol/L (136-145) Potassium Level 3.4 mmol/L (3.5-5.1) Chloride Level 104 mmol/L (98-107) Carbon Dioxide Level 31 mmol/L (21-32) Anion Gap 8 (6-14) Blood Urea Nitrogen 32 mg/dL (8-26) Creatinine 2.4 mg/dL (0.7-1.3) Estimated GFR (Cockcroft-Gault) 29.2 Glucose Level 147 mg/dL (70-99) Calcium Level 7.0 mg/dL (8.5-10.1) Magnesium Level 1.8 mg/dL (1.8-2.4) Urine Opiates Screen Neg (NEG) Urine Methadone Screen Neg (NEG) Urine Barbiturates Neg (NEG) Urine Phencyclidine Screen Neg (NEG) Urine Amphetamine/Methamphetamine Neg (NEG) Urine Benzodiazepines Screen Pos (NEG) Urine Cocaine Screen Neg (NEG) Urine Cannabinoids Screen Neg (NEG) Urine Ethyl Alcohol Neg (NEG) Comment Review of Relevant I have reviewed the following items talha (where applicable) has been applied. Labs Laboratory Tests Test 07/26/19 15:43 07/26/19 17:08 07/26/19 18:03 07/26/19 19:08 Glucose (Fingerstick) 172 mg/dL (70-99) 166 mg/dL (70-99) 153 mg/dL (70-99) 141 mg/dL (70-99) Test 07/26/19 20:12 07/26/19 20:16 07/26/19 21:19 07/26/19 22:21 O2 Saturation 94 % (92-99) Arterial Blood pH 7.30 (7.35-7.45) Arterial Blood pH (Temp corrected) 7.36 Arterial Blood pCO2 at Patient Temp 42 mmHg (35-46) Arterial Blood pCO2 (Temp correct) 35 mmHg Arterial Blood pO2 at Patient Temp 70 mmHg (75-108) Arterial Blood pO2 (Temp corrected) 53 mmHg Arterial Blood HCO3 20 mmol/L (21-28) Arterial Blood Base Excess -6 mmol/L (-3-3) FiO2 40 Glucose (Fingerstick) 137 mg/dL (70-99) 123 mg/dL (70-99) 122 mg/dL (70-99) Test 07/26/19 23:26 07/27/19 01:03 07/27/19 01:54 07/27/19 03:00 Glucose (Fingerstick) 76 mg/dL (70-99) 57 mg/dL (70-99) 194 mg/dL (70-99) 150 mg/dL (70-99) Test 07/27/19 05:26 07/27/19 05:30 07/27/19 07:55 07/27/19 08:50 Glucose (Fingerstick) 121 mg/dL (70-99) 112 mg/dL (70-99) White Blood Count 11.5 x10^3/uL (4.0-11.0) Red Blood Count 4.87 x10^6/uL (4.30-5.70) Hemoglobin 13.5 g/dL (13.0-17.5) Hematocrit 40.2 % (39.0-53.0) Mean Corpuscular Volume 83 fL (79-100) Mean Corpuscular Hemoglobin 28 pg (25-35) Mean Corpuscular Hemoglobin Concent 34 g/dL (31-37) Red Cell Distribution Width 14.1 % (11.5-14.5) Platelet Count 96 x10^3/uL (140-400) Neutrophils (%) (Auto) 86 % (31-73) Lymphocytes (%) (Auto) 7 % (24-48) Monocytes (%) (Auto) 6 % (0-9) Eosinophils (%) (Auto) 0 % (0-3) Basophils (%) (Auto) 0 % (0-3) Neutrophils # (Auto) 9.9 x10^3/uL (1.8-7.7) Lymphocytes # (Auto) 0.9 x10^3/uL (1.0-4.8) Monocytes # (Auto) 0.7 x10^3/uL (0.0-1.1) Eosinophils # (Auto) 0.0 x10^3/uL (0.0-0.7) Basophils # (Auto) 0.0 x10^3/uL (0.0-0.2) Prothrombin Time 18.5 SEC (11.7-14.0) Prothromb Time International Ratio 1.6 (0.8-1.1) Sodium Level 145 mmol/L (136-145) Potassium Level 3.4 mmol/L (3.5-5.1) Chloride Level 110 mmol/L (98-107) Carbon Dioxide Level 27 mmol/L (21-32) Anion Gap 8 (6-14) Blood Urea Nitrogen 29 mg/dL (8-26) Creatinine 2.5 mg/dL (0.7-1.3) Estimated GFR (Cockcroft-Gault) 27.8 BUN/Creatinine Ratio 12 (6-20) Glucose Level 138 mg/dL (70-99) Calcium Level 6.7 mg/dL (8.5-10.1) Total Bilirubin 0.4 mg/dL (0.2-1.0) Aspartate Amino Transf (AST/SGOT) 170 U/L (15-37) Alanine Aminotransferase (ALT/SGPT) 228 U/L (16-63) Alkaline Phosphatase 64 U/L (46-116) Creatine Kinase 887 U/L (39-308) Total Protein 5.2 g/dL (6.4-8.2) Albumin 2.2 g/dL (3.4-5.0) Albumin/Globulin Ratio 0.7 (1.0-1.7) O2 Saturation 95 % (92-99) Arterial Blood pH 7.43 (7.35-7.45) Arterial Blood pCO2 at Patient Temp 40 mmHg (35-46) Arterial Blood pO2 at Patient Temp 69 mmHg (75-108) Arterial Blood HCO3 26 mmol/L (21-28) Arterial Blood Base Excess 2 mmol/L (-3-3) FiO2 40 Test 07/27/19 09:05 07/27/19 11:56 07/28/19 05:25 07/28/19 10:25 Glucose (Fingerstick) 117 mg/dL (70-99) 122 mg/dL (70-99) Sodium Level 143 mmol/L (136-145) Potassium Level 3.4 mmol/L (3.5-5.1) Chloride Level 104 mmol/L (98-107) Carbon Dioxide Level 31 mmol/L (21-32) Anion Gap 8 (6-14) Blood Urea Nitrogen 32 mg/dL (8-26) Creatinine 2.4 mg/dL (0.7-1.3) Estimated GFR (Cockcroft-Gault) 29.2 Glucose Level 147 mg/dL (70-99) Calcium Level 7.0 mg/dL (8.5-10.1) Magnesium Level 1.8 mg/dL (1.8-2.4) Urine Opiates Screen Neg (NEG) Urine Methadone Screen Neg (NEG) Urine Barbiturates Neg (NEG) Urine Phencyclidine Screen Neg (NEG) Urine Amphetamine/Methamphetamine Neg (NEG) Urine Benzodiazepines Screen Pos (NEG) Urine Cocaine Screen Neg (NEG) Urine Cannabinoids Screen Neg (NEG) Urine Ethyl Alcohol Neg (NEG) Laboratory Tests Test 07/28/19 05:25 07/28/19 10:25 Sodium Level 143 mmol/L (136-145) Potassium Level 3.4 mmol/L (3.5-5.1) Chloride Level 104 mmol/L (98-107) Carbon Dioxide Level 31 mmol/L (21-32) Anion Gap 8 (6-14) Blood Urea Nitrogen 32 mg/dL (8-26) Creatinine 2.4 mg/dL (0.7-1.3) Estimated GFR (Cockcroft-Gault) 29.2 Glucose Level 147 mg/dL (70-99) Calcium Level 7.0 mg/dL (8.5-10.1) Magnesium Level 1.8 mg/dL (1.8-2.4) Urine Opiates Screen Neg (NEG) Urine Methadone Screen Neg (NEG) Urine Barbiturates Neg (NEG) Urine Phencyclidine Screen Neg (NEG) Urine Amphetamine/Methamphetamine Neg (NEG) Urine Benzodiazepines Screen Pos (NEG) Urine Cocaine Screen Neg (NEG) Urine Cannabinoids Screen Neg (NEG) Urine Ethyl Alcohol Neg (NEG) Microbiology 07/26/19 Blood Culture - Preliminary, Resulted NO GROWTH AFTER 2 DAYS Medications Current Medications Norepinephrine Bitartrate 250 ml @ 15 mls/hr CONT PRN IV SEE I/O RECORD Last administered on 07/26/19at 10:22; Start 07/25/19 at 19:00 Amiodarone HCl 900 mg/Dextrose 518 ml @ 33 mls/hr CONT PRN IV SEE I/O RECORD Last administered on 07/26/19at 00:21; Start 07/25/19 at 19:00; Stop 07/26/19 at 00:25; Status DC Fentanyl Citrate (Fentanyl 2ml Vial) 100 mcg 1X ONCE IV Last administered on 07/25/19at 19:44; Start 07/25/19 at 19:30; Stop 07/25/19 at 19:31; Status DC Midazolam HCl (Versed) 2 mg 1X ONCE IV Last administered on 07/25/19at 19:43; Start 07/25/19 at 19:30; Stop 07/25/19 at 19:31; Status DC Magnesium Sulfate/ Dextrose 100 ml @ 100 mls/hr 1X ONCE IV Last administered on 07/25/19 19:44; Start 07/25/19 at 19:30; Stop 07/25/19 at 20:29; Status DC Buspirone HCl (Buspar) 30 mg Q8H NG Last administered on 07/26/19at 12:27; S tart 07/25/19 at 20:00; Stop 07/26/19 at 19:20; Status DC Acetaminophen (Tylenol) 650 mg Q4H NG Last administered on 07/26/19 17:54; Start 07/25/19 at 20:00; Stop 07/26/19 at 19:20; Status DC Artificial Tears (Artificial Tears) 1 drop Q6HRS OU Last administered on 07/28/19 05:29; Start 07/26/19 at 00:00 Artificial Tears (Artificial Tears) 1 drop PRN Q15MIN PRN OU DRY EYE; Start 07/25/19 at 19:00; Stop 07/26/19 at 20:23; Status DC Heparin Sodium (Porcine) (Heparin Sodium) 5,000 unit BID SQ Last administered on 07/27/19 09:20; Start 07/25/19 at 21:00; Stop 07/27/19 at 13:48; Status DC Pantoprazole Sodium (PROTONIX VIAL for IV PUSH) 40 mg DAILY IVP Last administered on 07/28/19 09:54; Start 07/25/19 at 20:00 Fentanyl Citrate 30 ml @ 0 mls/hr CONT PRN IV PER PROTOCOL. Last administered on 07/27/19 04:52; Start 07/25/19 at 19:00; Stop 07/28/19 at 14:05; Status DC Propofol 100 ml @ 0 mls/hr CONT PRN IV PER PROTOCOL.; Start 07/25/19 at 20:00 Midazolam HCl 100 ml @ 0 mls/hr CONT PRN IV PER PROTOCOL. Last administered on 07/26/19 15:44; Start 07/25/19 at 20:00 Vecuronium [place] (Norcuron Bolus) 8 mg PRN Q1HR PRN IV SHIVERING Last administered on 07/26/19 17:54; Start 07/25/19 at 19:00; Stop 07/26/19 at 19:20; Status DC Sodium Bicarbonate (Sodium Bicarb Adult 8.4% Syr) 50 meq 1X ONCE IV Last administered on 07/25/19at 20:30; Start 07/25/19 at 20:30; Stop 07/25/19 at 20:31; Status DC Sodium Chloride 1,000 ml @ 125 mls/hr 1X ONCE IV Last administered on 07/26/19at 01:42; Start 07/26/19 at 01:30; Stop 07/26/19 at 09:29; Status DC Sodium Chloride 1,000 ml @ 1,000 mls/hr 1X ONCE IV Last administered on 07/26/19at 01:30; Start 07/26/19 at 01:30; Stop 07/26/19 at 02:29; Status DC Hydrocortisone Sodium Succinate (Solu-CORTEF) 100 mg 1X ONCE IV Last administered on 07/26/19at 01:44; Start 07/26/19 at 01:45; Stop 07/26/19 at 01:46; Status DC Dobutamine HCl/ Dextrose 250 ml @ 6.566 mls/ hr CONT PRN IV SEE I/O RECORD Last administered on 07/27/19at 20:09; Start 07/26/19 at 06:00 Ceftriaxone Sodium (Rocephin) 1 gm Q24H IVP Last administered on 07/27/19at 06:16; Start 07/26/19 at 06:00; Stop 07/27/19 at 08:17; Status DC Doxycycline Hyclate 100 mg/ Dextrose 100 ml @ 50 mls/hr Q12HR IV Last administered on 07/28/19at 09:53; Start 07/26/19 at 09:00 Amiodarone HCl 900 mg/Dextrose 518 ml @ 0 mls/hr CONT PRN IV PER PROTOCOL; Start 07/26/19 at 08:00; Stop 07/26/19 at 07:55; Status DC Amiodarone HCl 450 mg/Dextrose 259 ml @ 17 mls/hr CONT PRN IV SEE I/O RECORD Last administered on 07/27/19at 14:27; Start 07/26/19 at 08:00; Stop 07/28/19 at 03:03; Status DC Insulin Human Regular 150 unit/ Sodium Chloride 151.5 ml @ 0 mls/hr CONT PRN IV SEE I/O RECORD Last administered on 07/26/19at 23:03; Start 07/26/19 at 08:1 5 Magnesium Sulfate 50 ml @ 25 mls/hr 1X ONCE IV Last administered on 07/26/19at 10:23; Start 07/26/19 at 09:45; Stop 07/26/19 at 11:44; Status DC Sodium Bicarbonate 150 meq/Dextrose 1,150 ml @ 125 mls/hr Q9H12M IV Last administered on 07/28/19at 05:11; Start 07/26/19 at 15:00; Stop 07/28/19 at 11:29; Status DC Dextrose (Dextrose 50%-Water Syringe) 25 gm 1X ONCE IV Last administered on 07/27/19at 01:17; Start 07/27/19 at 01:15; Stop 07/27/19 at 01:16; Status DC Meropenem 500 mg/ Sodium Chloride 50 ml @ 100 mls/hr Q12HR IV Last administered on 07/28/19at 09:53; Start 07/27/19 at 09:00 Daptomycin 400 mg/ Sodium Chloride 50 ml @ 100 mls/hr Q24H IV Last administered on 07/28/19at 12:26; Start 07/27/19 at 10:00 Potassium Bicarbonate (Potassium Effervescent Tablet) 60 meq 1X ONCE PEG Last administered on 07/27/19at 09:20; Start 07/27/19 at 09:00; Stop 07/27/19 at 0 9:01; Status DC Potassium Bicarbonate (Potassium Effervescent Tablet) 40 meq 1X ONCE PEG ; Start 07/27/19 at 11:00; Stop 07/27/19 at 11:01; Status DC Amiodarone HCl 450 mg/Dextrose 259 ml @ 17 mls/hr CONT PRN IV SEE I/O RECORD Last administered on 07/28/19at 05:11; Start 07/28/19 at 02:45 Fentanyl Citrate (Fentanyl 2ml Vial) 50 mcg PRN Q1HR PRN IVP PAIN Last administered on 07/28/19at 04:18; Start 07/28/19 at 03:45; Stop 07/28/19 at 14:05; Status DC Sodium Chloride 1,000 ml @ 75 mls/hr [id number] IV Last administered on 07/28/19at 12:28; Start 07/28/19 at 11:30 Levetiracetam 500 mg/Dextrose 105 ml @ 420 mls/hr Q12HR IV Last administered on 07/28/19at 13:36; Start 07/28/19 at 13:00; Stop 07/28/19 at 13:42; Status DC Levetiracetam 1000 mg/Dextrose 110 ml @ 420 mls/hr Q12HR IV ; Start 07/28/19 at 21:00 Naloxone HCl (Narcan) 0.4 mg PRN Q2MIN PRN IV SEE INSTRUCTIONS; Start 07/28/19 at 13:45 Sodium Chloride 1,000 ml @ 25 mls/hr Q24H IV ; Start 07/28/19 at 13:42 Morphine Sulfate 30 ml @ 0 mls/hr CONT PRN PRN IV PER PROTOCOL Last administered on 07/28/19at 14:15; Start 07/28/19 at 13:45 Lorazepam (Ativan Inj) 2 mg 1X ONCE IVP Last administered on 07/28/19at 14:18; Start 07/28/19 at 14:15; Stop 07/28/19 at 14:16; Status DC Lorazepam (Ativan Inj) 2 mg PRN 1X PRN IVP ANXIETY / AGITATION; Start 07/28/19 at 14:15; Stop 07/28/19 at 18:00 Vitals/I & O Vital Sign - Last 24 Hours 07/27/19 07/27/19 07/27/19 07/27/19 15:00 15:00 16:00 16:00 Temp 99.7 99.7 99.3 99.7 99.3 Pulse 78 78 78 Resp 20 20 27 B/P (MAP) 147/90 147/90 (109) 148/98 (115) Pulse Ox 100 100 100 O2 Delivery Ventilator Ventilator Ventilator Mechanical Ventilator 07/27/19 07/27/19 07/27/19 07/27/19 16:00 16:00 16:44 17:00 Temp 99.3 99.1 99.1 Pulse 63 78 72 Resp 20 20 B/P (MAP) 137/54 (81) 147/90 143/92 (109) Pulse Ox 100 100 100 O2 Delivery Ventilator Ventilator Ventilator 07/27/19 07/27/19 07/27/19 07/27/19 17:00 18:00 18:00 19:00 Temp 99.1 99.0 99.0 98.8 99.0 98.8 Pulse 72 78 78 90 Resp 20 20 20 20 B/P (MAP) 143/92 144/94 (111) 144/94 125/84 (98) Pulse Ox 100 100 100 100 O2 Delivery Ventilator Ventilator Ventilator Ventilator 07/27/19 07/27/19 07/27/19 07/27/19 20:00 20:00 20:00 20:00 Temp 98.8 98.8 98.8 Pulse 77 Resp 20 B/P (MAP) 121/95 (104) Pulse Ox 100 O2 Delivery Mechanical Ventilator Ventilator 07/27/19 07/27/19 07/27/19 07/27/19 20:31 21:00 22:00 23:00 Temp 99.0 99.0 98.8 99.0 99.0 98.8 Pulse 79 87 84 Resp 20 20 20 B/P (MAP) 133/75 (94) 125/89 (101) 132/88 (103) Pulse Ox 100 100 100 100 O2 Delivery Ventilator Ventilator Ventilator Ventilator 07/27/19 07/27/19 07/28/19 07/28/19 23:44 23:46 00:00 00:00 Temp 98.8 99.0 99.0 Pulse 90 Resp 20 B/P (MAP) 154/94 (114) Pulse Ox 100 O2 Delivery Mechanical Ventilator Ventilator 07/28/19 07/28/19 07/28/19 07/28/19 00:31 01:00 02:00 02:30 Temp 99.1 99.5 99.1 99.5 Pulse 84 83 Resp 20 20 B/P (MAP) 142/91 (108) 154/90 (111) Pulse Ox 100 100 100 100 O2 Delivery Ventilator Ventilator Ventilator Ventilator 07/28/19 07/28/19 07/28/19 07/28/19 03:00 03:51 03:51 04:00 Temp 99.4 99.3 99.3 99.4 99.3 Pulse 85 97 Resp 20 20 B/P (MAP) 125/75 (92) 158/82 (107) Pulse Ox 100 100 O2 Delivery Ventilator Mechanical Ventilator Ventilator 07/28/19 07/28/19 07/28/19 07/28/19 04:00 04:55 05:00 06:00 Temp 99.1 99.3 99.1 99.3 Pulse 85 81 Resp 20 20 B/P (MAP) 123/89 (100) 137/89 (105) Pulse Ox 100 100 100 O2 Delivery Ventilator Ventilator Ventilator 07/28/19 07/28/19 07/28/19 07/28/19 07:00 08:00 08:00 08:00 Temp 99.7 100.0 99.7 100.0 Pulse 97 84 Resp 23 28 B/P (MAP) 177/106 (129) 177/106 (129) 166/88 (114) Pulse Ox 100 100 100 O2 Delivery Ventilator Ventilator Ventilator 07/28/19 07/28/19 07/28/19 07/28/19 08:00 08:00 10:00 11:00 Temp 98.8 100.0 99.7 100.0 99.7 Pulse 87 90 94 Resp 23 30 30 B/P (MAP) 160/94 (116) 186/99 (128) Pulse Ox 100 100 100 O2 Delivery Ventilator Mechanical Ventilator Ventilator Ventilator 07/28/19 07/28/19 07/28/19 07/28/19 12:00 12:00 12:00 12:00 Temp 99.9 99.9 Pulse 93 Resp 30 B/P (MAP) 181/107 (131) 165/98 (120) Pulse Ox 100 100 O2 Delivery Ventilator Mechanical Ventilator Ventilator 07/28/19 07/28/19 07/28/19 07/28/19 12:00 13:00 13:39 14:15 Temp 98.8 99.5 99.5 Pulse 87 92 Resp 23 34 42 B/P (MAP) 161/115 (130) Pulse Ox 100 100 100 O2 Delivery Ventilator Ventilator Ventilator Intake and Output 07/27/19 07/27/19 07/28/19 15:00 23:00 07:00 Intake Total 268 ml 1588 ml Output Total 185 ml 105 ml 225 ml Balance -185 ml 163 ml 1363 ml MARYA MATTHEWS MD Jul 28, 2019 14:57
--- NOTE | 2019-07-28 15:30 | NUR ---
SS following for discharge planning. SS reviewed pt's chart. Pt's family made decision to withdraw care.
--- NOTE | 2019-07-28 15:40 | NUR ---
Patient extubated. Family at the bedside
--- NOTE | 2019-07-28 17:19 | NUR ---
Patient pronounced at 1719 by this RN and Richelle Bedolla RN.
--- NOTE | 2019-07-28 17:28 | NUR ---
Carla at [facility] notified of cardiac . Addendum: 07/28/19 at 1731 by YON CARSON RN Amended: Links added.
--- NOTE | 2019-07-28 19:01 | PDOC2 ---
PALLIATIVE CARE Palliative Care Note Palliative Care Consult requested by Dr. Lopez to address goals of care Medical Assessment per medical record; Anoxic/hypoxic encephalopathy. Metabolic encephalopathy. S/p Cardiac arrest, downtime estimated > 25 minutes. Respiratory failure. Cardiogenic shock. Lactic acidosis. Cerebral edema. 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 CHF EF 15%. Pulmonary A hypertension. GI bleeding. Renal failure. Leukocytosis. Hypocalcemia. FABIAN. Poor prognosis. Patient seen prior to extubation. Per Dr. Porter extubate. Do not re-intubate. Ativan and Morphine as ordered prior to extubation. Morphine 4mg gtt.as ordered. Dr. Porter and Dr. Floyd discussed medical condition and plan with family prior to changing to comfort. care. Multiple family members at bedside. Kelly FABIAN extubated. as ordered. Spontaneous respirations. RR 32. No spontaneous respirations or heart beat at 1719. . Family at bedside. JAVIER ADAMS Jul 28, 2019 19:01
[2019-07-28] MEDS ORDERED: levETIRAcetam 1,000 MG in IV DEXTROSE 5% 100ML 100 ML IV SCH (21:00)
== END 2019-07-28 17:45 | disposition expired | DRG 208 ==
LOC: 1 WEST ICU 18:51 → UNDODISIN 07-28 17:45
PROVIDERS: ADMIT Internal Medicine; ATTEND Internal Medicine
PROC: 5A1945Z Respiratory Ventilation, 24-96 Consecutive Hours (ICD-10-PCS; principal; 2019-07-25)
PROC: 0BH17EZ Insertion of Endotracheal Airway into Trachea, Via Natural or Artificial Opening (ICD-10-PCS; 2019-07-25)
PROC: 5A12012 Performance of Cardiac Output, Single, Manual (ICD-10-PCS; 2019-07-25)
DX: J96.01 Acute respiratory failure with hypoxia (principal); G93.41 Metabolic encephalopathy; G93.6 Cerebral edema; N17.9 Acute kidney failure, unspecified; E87.2 Acidosis; I42.8 Other cardiomyopathies; E87.0 Hyperosmolality and hypernatremia; G93.1 Anoxic brain damage, not elsewhere classified; M62.82 Rhabdomyolysis; K92.2 Gastrointestinal hemorrhage, unspecified; I46.9 Cardiac arrest, cause unspecified; E83.51 Hypocalcemia; D69.6 Thrombocytopenia, unspecified; E66.01 Morbid (severe) obesity due to excess calories; Z68.37 Body mass index [BMI] 37.0-37.9, adult; M19.90 Unspecified osteoarthritis, unspecified site; K40.90 Unilateral inguinal hernia, without obstruction or gangrene, not specified as recurrent; K76.0 Fatty (change of) liver, not elsewhere classified; Z51.5 Encounter for palliative care; G25.3 Myoclonus; R56.9 Unspecified convulsions; E87.6 Hypokalemia; I50.9 Heart failure, unspecified; I11.0 Hypertensive heart disease with heart failure; Z72.0 Tobacco use
CPT/HCPCS: 36415; 36600; 70450; 71045; 78606; 80048; 80053; 80307; 81001; 82310; 82550; 82805; 82962; 83605; 83735; 84075; 84100; 85007; 85025; 85610; 85730; 87040; 87449; 87804; 93306; 94002; 94003; 96374; A9512; C9113; J0282; J0696; J0878; J1250; J1644; J1720; J1815; J1953; J2060; J2185; J2250; J2270; J3010; J3475; J3490; J7030; J7042; G0378